=== PATIENT | female | born 1985 | race Two or more races ===

== ENCOUNTER 2016-06-05 21:39 | Inpatient (IN) | payer MEDICAID ==
[~2016-06-05] VITALS: Ht 162.6 cm; Wt 106.3 kg
[2016-06-05 23:23] LABS: Albumin 2.6 g/dL (3.4-5.0); BUN/Creatinine Ratio 14.7; Bilirubin, Total 1.7 mg/dL (0.2-1.0); Calcium 8.1 mg/dL (8.5-10.1); Potassium 3.4 mmol/L (3.5-5.1)
[2016-06-05 23:24] LABS: Basophils # (auto) 0 uL; Basophils % (auto) 0.5 % (0.0-2.0); DEFINITIVE VIEW TRANSMISSION; Eosinophils # (auto) 0 uL; Eosinophils % (auto) 0.2 % (0.0-7.0); Hematocrit 51.1 % (36.0-46.0); Hemoglobin 16.4 g/dL (12.2-16.2); Lymphocytes # (auto) 1.2 uL; Lymphocytes % (auto) 13.6 % (10.0-50.0); Mean Corpuscular Hgb Conc. 32.1 g/dL (32.0-36.0); Mean Corpuscular Volume 81.1 fL (80.0-100.0); Mean Platelet Volume 8.6 fL (7.4-10.4); Monocytes # (auto) 0.4 uL; Monocytes % (auto) 5.1 % (0.0-12.0); Neutrophils % (auto) 80.6 % (37.0-80.0); Platelet Count (auto) 371 10^3/uL (140-450); Red Cell Distribution Width 18.4 % (11.6-16.0); White Blood Cell 8.6 10^3/uL (4.4-10.8)
[2016-06-05 23:25] LABS: INR 1.06 (0.9-1.15); Partial Thromboplastin Time 26.8 sec (22.64-33.71); Prothrombin Time 11.4 sec (9.37-12.3)
[2016-06-05 23:36] LABS: Urine Bilirubin Negative (Negative); Urine Blood Negative /uL (Negative); Urine Color Yellow (Yellow); Urine Glucose Normal (Normal); Urine Hyaline Cast FEW /lpf (0 - 2); Urine Ketone Negative (Negative); Urine Mucus FEW (None Seen); Urine Nitrite Negative (Negative); Urine RBC 3 /hpf (0 - 4); Urine Squamous Epithelial Cell FEW /hpf (<5); Urine Urobilinogen Normal (Negative)
[2016-06-06] LABS: B-Type Natriuretic Peptide 555.43 pg/mL (0-100); Temperature: 22.3 C (20.0-25.0)
[2016-06-06] MEDS ORDERED: FUROSEMIDE 20 MG/2 ML VIAL IV ONE (05:45)
[2016-06-06] MEDS ORDERED: CEFTRIAXONE SODIUM 2 GM in D5W 5% 50 ML IV ONE (07:15)
[2016-06-06 07:46] LABS: Basophils # (auto) 0.1 uL; Basophils % (auto) 0.6 % (0.0-2.0); DEFINITIVE VIEW TRANSMISSION; Eosinophils # (auto) 0 uL; Eosinophils % (auto) 0.1 % (0.0-7.0); Hematocrit 48.8 % (36.0-46.0); Hemoglobin 15.7 g/dL (12.2-16.2); Lymphocytes # (auto) 1.4 uL; Lymphocytes % (auto) 15.3 % (10.0-50.0); Mean Corpuscular Hgb Conc. 32.2 g/dL (32.0-36.0); Mean Corpuscular Volume 80.8 fL (80.0-100.0); Mean Platelet Volume 8.6 fL (7.4-10.4); Monocytes # (auto) 0.6 uL; Monocytes % (auto) 6.7 % (0.0-12.0); Neutrophils # (auto) 7.1 uL; Neutrophils % (auto) 77.3 % (37.0-80.0); Platelet Count (auto) 362 10^3/uL (140-450); Red Cell Distribution Width 17.8 % (11.6-16.0); White Blood Cell 9.1 10^3/uL (4.4-10.8)
[2016-06-06] MEDS: HYDROmorphone HCL 2 MG/ML VL IV PRN ×6 (07:53→19:24)
[2016-06-06 08:19] LABS: Albumin 2.5 g/dL (3.4-5.0); BUN/Creatinine Ratio 15.3; Bilirubin, Total 1.2 mg/dL (0.2-1.0); Potassium 3.3 mmol/L (3.5-5.1); Total Protein 5.9 g/dL (6.4-8.2)
[2016-06-06 08:28] LABS: Urine Bilirubin Negative (Negative); Urine Blood Negative /uL (Negative); Urine Color Yellow (Yellow); Urine Glucose Normal (Normal); Urine Hyaline Cast MOD /lpf (0 - 2); Urine Ketone Negative (Negative); Urine Mucus FEW (None Seen); Urine Nitrite Negative (Negative); Urine RBC 1 /hpf (0 - 4); Urine Squamous Epithelial Cell FEW /hpf (<5); Urine Urobilinogen Normal (Negative); Urine pH 5.5 (5.0-8.0)
[2016-06-06 08:37] LABS: B-Type Natriuretic Peptide 462.54 pg/mL (0-100); Temperature: 22.9 C (20.0-25.0)
[2016-06-06 09:27] LABS: Albumin 2.5 g/dL (3.4-5.0); Bilirubin, Direct 0.4 mg/dL (0-0.2); Bilirubin, Total 1.2 mg/dL (0.2-1.0); Total Protein 5.8 g/dL (6.4-8.2)
[2016-06-06] MEDS ORDERED: GASTROGRAFIN 30 ML SOL ONE (11:23)
[2016-06-06] MEDS ORDERED: IOHEXOL 300 MG/ML 100ML BOTTLE IJ ONE (13:24)
[2016-06-06] MEDS ORDERED: DOCUSATE SOD 100 MG CAP PO PRN (16:00)
[2016-06-06] MEDS ORDERED: ACETAMINOPHEN 325 MG TAB PO PRN (16:00)
[2016-06-06] MEDS ORDERED: NITROGLYCERIN 0.4 MG SL TAB SL PRN (16:00)
[2016-06-06] MEDS ORDERED: TEMAZEPAM 15 MG CAP PO PRN (16:00)
[2016-06-06] MEDS ORDERED: ONDANSETRON HCL 4 MG/2 ML VIAL IV PRN (16:00)
[2016-06-06] MEDS ORDERED: MORPHINE SULF INJ 2 MG/ML SYRINGE 1ML IV PRN ×2 (16:00)
[2016-06-06] MEDS ORDERED: POTASSIUM CHL 10 Meq TABLET PO ONE (16:15)
[2016-06-06] MEDS: FUROSEMIDE 40 MG/4 ML VIAL IV SCH (18:28)
[2016-06-06] MEDS: BOOST PLUS 8 ounce PO SCH (18:28)
[2016-06-06] MEDS: SPIRONOLACTONE 25 MG TAB PO SCH (18:28)
[2016-06-06] MEDS: HYDROcodone-ACET 5/325MG TAB PO PRN (18:29)
[2016-06-06 20:05] VITALS: BP 97/62
[2016-06-06 21:13] LABS: BUN/Creatinine Ratio 16.7; Calcium 7.8 mg/dL (8.5-10.1); Potassium 4.2 mmol/L (3.5-5.1)
[2016-06-06] MEDS: SODIUM CHLOR 0.9% PF (SALINE LOCK) 10ML VIAL IV SCH (21:17)
[2016-06-06] MEDS: METOPROLOL TARTRATE 25 MG TAB PO SCH (21:17)
[2016-06-06] MEDS: LACTULOSE 20Gm/30ML SOLN PO SCH (21:17)
[2016-06-06] MEDS: FAMOTIDINE 20 MG TAB PO SCH (21:18)
[2016-06-06 22:00] VITALS: BP 97/62
[2016-06-07] MEDS: BOOST PLUS 8 ounce PO SCH ×5 (00:02→22:00)
[2016-06-07] MEDS: HYDROcodone-ACET 5/325MG TAB PO PRN (03:01)
[2016-06-07 05:00] VITALS: BP 100/61
[2016-06-07 05:41] LABS: Basophils # (auto) 0 uL; Basophils % (auto) 0.6 % (0.0-2.0); DEFINITIVE VIEW TRANSMISSION; Eosinophils # (auto) 0 uL; Eosinophils % (auto) 0.2 % (0.0-7.0); Hematocrit 50.1 % (36.0-46.0); Lymphocytes # (auto) 1.1 uL; Lymphocytes % (auto) 12.9 % (10.0-50.0); Mean Corpuscular Hgb Conc. 31.9 g/dL (32.0-36.0); Mean Corpuscular Volume 81.6 fL (80.0-100.0); Mean Platelet Volume 8.5 fL (7.4-10.4); Monocytes # (auto) 0.5 uL; Monocytes % (auto) 5.7 % (0.0-12.0); Neutrophils # (auto) 6.6 uL; Neutrophils % (auto) 80.6 % (37.0-80.0); Platelet Count (auto) 345 10^3/uL (140-450); Red Cell Distribution Width 17.7 % (11.6-16.0); White Blood Cell 8.1 10^3/uL (4.4-10.8)
[2016-06-07] MEDS: SPIRONOLACTONE 25 MG TAB PO SCH ×2 (06:00→17:10)
[2016-06-07] MEDS: FUROSEMIDE 40 MG/4 ML VIAL IV SCH ×2 (06:00→17:10)
[2016-06-07 06:07] LABS: Albumin 2.2 g/dL (3.4-5.0); BUN/Creatinine Ratio 17.3; Calcium 7.9 mg/dL (8.5-10.1)
[2016-06-07] MEDS: SODIUM CHLOR 0.9% PF (SALINE LOCK) 10ML VIAL IV SCH ×3 (06:09→22:00)
[2016-06-07 06:21] LABS: Bilirubin, Total 1.2 mg/dL (0.2-1.0); Total Protein 5.3 g/dL (6.4-8.2)
[2016-06-07 08:10] VITALS: BP 99/53
[2016-06-07 09:00] VITALS: BP_SYST 115; BP_SYST 136; BP_DIAS 72; BP_DIAS 75
[2016-06-07] MEDS: LACTULOSE 20Gm/30ML SOLN PO SCH ×2 (10:26→22:43)
[2016-06-07] MEDS: METOPROLOL TARTRATE 25 MG TAB PO SCH ×2 (10:27→22:44)
[2016-06-07] MEDS: FAMOTIDINE 20 MG TAB PO SCH ×2 (10:27→22:43)
[2016-06-07] MEDS: MULTIPLE VITAMIN TAB PO SCH (10:27)
[2016-06-07 14:10] VITALS: BP 110/70
[2016-06-07 17:00] VITALS: BP 98/76
[2016-06-07 21:16] VITALS: BP 106/80
[2016-06-08] MEDS: HYDROcodone-ACET 5/325MG TAB PO PRN ×3 (03:09→22:53)
[2016-06-08 04:55] VITALS: BP 100/70
[2016-06-08 06:00] LABS: Basophils # (auto) 0.1 uL; Basophils % (auto) 0.7 % (0.0-2.0); DEFINITIVE VIEW TRANSMISSION; Eosinophils # (auto) 0 uL; Eosinophils % (auto) 0.4 % (0.0-7.0); Hematocrit 48.4 % (36.0-46.0); Hemoglobin 15.6 g/dL (12.2-16.2); Lymphocytes # (auto) 1.2 uL; Lymphocytes % (auto) 14.5 % (10.0-50.0); Mean Corpuscular Hgb Conc. 32.2 g/dL (32.0-36.0); Mean Corpuscular Volume 80.7 fL (80.0-100.0); Mean Platelet Volume 8.4 fL (7.4-10.4); Monocytes # (auto) 0.5 uL; Monocytes % (auto) 6.8 % (0.0-12.0); Neutrophils # (auto) 6.2 uL; Neutrophils % (auto) 77.6 % (37.0-80.0); Platelet Count (auto) 326 10^3/uL (140-450)
[2016-06-08] MEDS: SPIRONOLACTONE 25 MG TAB PO SCH ×3 (06:00→17:36)
[2016-06-08 06:18] LABS: Potassium 3.6 mmol/L (3.5-5.1)
[2016-06-08] MEDS: FUROSEMIDE 40 MG/4 ML VIAL IV SCH ×2 (06:22→17:36)
[2016-06-08] MEDS: SODIUM CHLOR 0.9% PF (SALINE LOCK) 10ML VIAL IV SCH ×3 (06:22→22:00)
[2016-06-08] MEDS: BOOST PLUS 8 ounce PO SCH ×4 (06:23→22:00)
[2016-06-08 06:24] LABS: Albumin 2.1 g/dL (3.4-5.0); BUN/Creatinine Ratio 18.4; Calcium 7.8 mg/dL (8.5-10.1)
[2016-06-08 06:26] LABS: Bilirubin, Total 0.9 mg/dL (0.2-1.0); Total Protein 5.2 g/dL (6.4-8.2)
[2016-06-08 08:00] VITALS: BP 126/75
[2016-06-08 09:00] VITALS: BP 126/75
[2016-06-08] MEDS: FAMOTIDINE 20 MG TAB PO SCH ×2 (09:16→22:53)
[2016-06-08] MEDS: LACTULOSE 20Gm/30ML SOLN PO SCH ×2 (09:16→22:53)
[2016-06-08] MEDS: MULTIPLE VITAMIN TAB PO SCH (09:16)
[2016-06-08] MEDS: METOPROLOL TARTRATE 25 MG TAB PO SCH ×2 (09:17→22:54)
[2016-06-08] MEDS: HYDROmorphone HCL 2 MG/ML VL IV PRN (12:12)
[2016-06-08 13:00] VITALS: BP 121/73
[2016-06-08 17:00] VITALS: BP 112/79
[2016-06-08 22:00] VITALS: BP 124/89
[2016-06-09 05:00] VITALS: BP 100/68
[2016-06-09] MEDS: SODIUM CHLOR 0.9% PF (SALINE LOCK) 10ML VIAL IV SCH ×3 (06:00→22:24)
[2016-06-09] MEDS: BOOST PLUS 8 ounce PO SCH ×4 (06:00→22:24)
[2016-06-09] MEDS: FUROSEMIDE 40 MG/4 ML VIAL IV SCH ×2 (06:33→18:15)
[2016-06-09] MEDS: SPIRONOLACTONE 25 MG TAB PO SCH (06:34)
[2016-06-09 07:30] VITALS: BP 96/65
[2016-06-09] MEDS: METOPROLOL TARTRATE 25 MG TAB PO SCH (10:00)
[2016-06-09] MEDS ORDERED: ENOXAPARIN SOD 40 MG/0.4 ML SYRINGE SC SCH (10:00)
[2016-06-09] MEDS: LACTULOSE 20Gm/30ML SOLN PO SCH ×2 (10:01→22:23)
[2016-06-09] MEDS: MULTIPLE VITAMIN TAB PO SCH (10:03)
[2016-06-09] MEDS: FAMOTIDINE 20 MG TAB PO SCH ×2 (10:03→22:23)
[2016-06-09] MEDS: HYDROcodone-ACET 5/325MG TAB PO PRN (11:53)
[2016-06-09] MEDS: ALBUMIN 25% 100 ML IV SCH ×2 (14:25→22:24)
[2016-06-09] MEDS: SILDENAFIL CITRATE 20 MG TAB PO SCH ×2 (14:36→20:08)
[2016-06-09 16:31] VITALS: BP 106/67
[2016-06-09 19:08] LABS: Sjogren's Anti-SS-A Antibody <0.2 AI (0.0-0.9)
[2016-06-09 20:00] VITALS: BP 101/72
[2016-06-09] MEDS: HYDROmorphone HCL 2 MG/ML VL IV PRN (20:17)
[2016-06-09 22:00] VITALS: BP 101/72
[2016-06-10] VITALS (7 sets, daily range): BP systolic 111–149; BP diastolic 68–87
[2016-06-10] MEDS: HYDROmorphone HCL 2 MG/ML VL IV PRN ×4 (01:06→22:38)
[2016-06-10] MEDS: HYDROcodone-ACET 5/325MG TAB PO PRN ×3 (04:16→20:16)
[2016-06-10] MEDS: FUROSEMIDE 40 MG/4 ML VIAL IV SCH ×2 (05:44→17:48)
[2016-06-10] MEDS: ALBUMIN 25% 100 ML IV SCH ×3 (05:44→21:48)
[2016-06-10] MEDS: BOOST PLUS 8 ounce PO SCH ×4 (05:45→21:45)
[2016-06-10] MEDS: SODIUM CHLOR 0.9% PF (SALINE LOCK) 10ML VIAL IV SCH ×3 (05:45→21:44)
[2016-06-10] MEDS: SILDENAFIL CITRATE 20 MG TAB PO SCH ×3 (08:27→20:16)
[2016-06-10] MEDS: POTASSIUM CHL 20 Meq TABLET PO SCH ×2 (09:52→21:45)
[2016-06-10] MEDS: MULTIPLE VITAMIN TAB PO SCH (09:52)
[2016-06-10] MEDS: FAMOTIDINE 20 MG TAB PO SCH ×2 (09:52→21:45)
[2016-06-10] MEDS: LACTULOSE 20Gm/30ML SOLN PO SCH ×2 (09:53→21:45)
[2016-06-11] MEDS: HYDROmorphone HCL 2 MG/ML VL IV PRN ×2 (04:19→08:56)
[2016-06-11 05:00] VITALS: BP 103/79
[2016-06-11] MEDS: SODIUM CHLOR 0.9% PF (SALINE LOCK) 10ML VIAL IV SCH ×2 (05:46→14:24)
[2016-06-11] MEDS: BOOST PLUS 8 ounce PO SCH ×2 (05:46→11:38)
[2016-06-11] MEDS: ALBUMIN 25% 100 ML IV SCH (05:53)
[2016-06-11] MEDS: FUROSEMIDE 40 MG/4 ML VIAL IV SCH (05:53)
[2016-06-11 06:27] LABS: Albumin 3.5 g/dL (3.4-5.0); BUN/Creatinine Ratio 17.7; Bilirubin, Total 1.9 mg/dL (0.2-1.0); Potassium 4.2 mmol/L (3.5-5.1)
[2016-06-11 08:00] VITALS: BP 103/79
[2016-06-11] MEDS: SILDENAFIL CITRATE 20 MG TAB PO SCH ×2 (08:00→14:28)
[2016-06-11 08:26] VITALS: BP 123/88
[2016-06-11] MEDS: MULTIPLE VITAMIN TAB PO SCH (08:49)
[2016-06-11] MEDS: FAMOTIDINE 20 MG TAB PO SCH (08:49)
[2016-06-11] MEDS: POTASSIUM CHL 20 Meq TABLET PO SCH (08:49)
[2016-06-11] MEDS: LACTULOSE 20Gm/30ML SOLN PO SCH (08:49)
[2016-06-11] MEDS ORDERED: FUR20T PO (09:51)
[2016-06-11] MEDS ORDERED: SILD20TA PO (09:51)
[2016-06-11] MEDS ORDERED: POTA20TA53 PO (09:51)
[2016-06-11] MEDS ORDERED: MET25T PO (09:51)
[2016-06-11] MEDS ORDERED: WARF3TAB20 PO (09:54)
[2016-06-11] MEDS ORDERED: CARVEDILOL 3.125 MG TAB PO SCH (10:00)
[2016-06-11] MEDS ORDERED: METOPROLOL TARTRATE 25 MG TAB PO SCH (10:00)
[2016-06-11 12:00] VITALS: BP 132/95
[2016-06-11 14:50] LABS: INR 1.1 (0.9-1.15); Partial Thromboplastin Time 26.8 sec (22.64-33.71); Prothrombin Time 11.9 sec (9.37-12.3)
[2016-06-11 15:01] VITALS: BP 132/95
[2016-06-11] MEDS ORDERED: WARFARIN SODIUM 5 MG TAB PO SCH (17:00)
[2016-06-12] MEDS ORDERED: FUROSEMIDE 20 MG TAB PO SCH (10:00)
== END 2016-06-11 17:10 | disposition home or self-care (01) | DRG 194 ==
LOC: ER 21:51 → TELE 21:52 → TELE-WESTW 06-06 20:00
PROVIDERS: ADMIT Internal Medicine; ATTEND Internal Medicine
DX: I13.0 Hypertensive heart and chronic kidney disease with heart failure and stage 1 through stage 4 chronic kidney disease, or unspecified chronic kidney disease (principal); J96.00 Acute respiratory failure, unspecified whether with hypoxia or hypercapnia; E43 Unspecified severe protein-calorie malnutrition; R18.8 Other ascites; I27.2 Other secondary pulmonary hypertension; K74.60 Unspecified cirrhosis of liver; N39.0 Urinary tract infection, site not specified; I50.9 Heart failure, unspecified; E83.51 Hypocalcemia; J45.909 Unspecified asthma, uncomplicated; I07.1 Rheumatic tricuspid insufficiency; E87.6 Hypokalemia; E66.01 Morbid (severe) obesity due to excess calories; D75.1 Secondary polycythemia; N18.3 Chronic kidney disease, stage 3 (moderate); T43.625A Adverse effect of amphetamines, initial encounter; F17.210 Nicotine dependence, cigarettes, uncomplicated; F15.90 Other stimulant use, unspecified, uncomplicated; Z90.49 Acquired absence of other specified parts of digestive tract; Z86.2 Personal history of diseases of the blood and blood-forming organs and certain disorders involving the immune mechanism; Z68.41 Body mass index [BMI] 40.0-44.9, adult
CPT/HCPCS: 36415; 36600; 71020; 74176; 74177; 76700; 76705; 78582; 80048; 80053; 80076; 81001; 81025; 82140; 82150; 82805; 83516; 83690; 83880; 84702; 85025; 85379; 85610; 85730; 86225; 86235; 86703; 93005; 93306; 93970; 96365; 96375; 97001; G0434; J0696; J7060

== ENCOUNTER 2018-06-22 23:25 | Emergency (ER) | payer MEDICARE, MEDICAID ==
[~2018-06-22] VITALS: Ht 162.6 cm; Wt 83.5 kg
[~2018-06-22 23:25] MED LIST: AMBR10TA3 PO; BENA5TAB5 PO; BUME2TAB3 PO; FUR20T PO; HYDR-4683 PO; LACT10SO3 PO; MET25T PO; POTA20TA53 PO; SILD20TA PO; SPIR25TA88 PO; WARF3TAB20 PO
[2018-06-22 23:55] VITALS: BP 106/67
[2018-06-23 00:43] LABS: Basophils # (auto) 0.1 uL; Eosinophils # (auto) 0.1 uL; Hemoglobin 13.7 g/dL (12.2-16.2); Monocytes # (auto) 0.4 uL; White Blood Cell 4.7 10^3/uL (4.4-10.8)
[2018-06-23 00:45] LABS: Basophils % (auto) 1.8 % (0.0-2.0); Eosinophils % (auto) 1.2 % (0.0-7.0); Hematocrit 42.6 % (36.0-46.0); Mean Corpuscular Hemoglobin 26.7 pg (28.0-32.0); Mean Corpuscular Hgb Conc. 32.3 g/dL (32.0-36.0); Mean Corpuscular Volume 82.9 fL (80.0-100.0); Monocytes % (auto) 8.3 % (0.0-12.0); Neutrophils # (auto) 3.1 uL; Neutrophils % (auto) 66.7 % (37.0-80.0); Platelet Count (auto) 196 10^3/uL (140-450); Red Blood Cells 5.14 10^6/uL (4.0-5.20)
[2018-06-23 00:54] LABS: Red Cell Distribution Width 25.4 % (11.8-14.3)
[2018-06-23 00:56] LABS: Chloride 105 mmol/L (98-107); Sodium 139 mmol/L (136-145)
[2018-06-23 00:59] LABS: Albumin 4.2 g/dL (3.4-5.0); Anion Gap 7 (5-15); Blood Urea Nitrogen 16 mg/dL (7-18); Calcium 8.7 mg/dL (8.5-10.1); Carbon Dioxide 27 mmol/L (21-32); Glucose 66 mg/dL (74-106); Magnesium 2.3 mg/dL (1.6-2.6)
[2018-06-23 01:03] LABS: Alanine Aminotransferase 23 U/L (13-56); Aspartate Aminotransferase 17 U/L (15-37); BUN/Creatinine Ratio 13.9; Bilirubin, Total 1.5 mg/dL (0.2-1.0); GFR African American 69 mL/min; GFR Non-African American 57 mL/min; Total Protein 7.9 g/dL (6.4-8.2)
[2018-06-23 01:04] LABS: Alkaline Phosphatase 68 U/L (45-117)
== END 2018-06-23 05:55 | disposition left against medical advice (07) ==
LOC: ER 23:25
DX: R42 Dizziness and giddiness (principal); Z53.21 Procedure and treatment not carried out due to patient leaving prior to being seen by health care provider
CPT/HCPCS: 36415; 80053; 83735; 83880; 84484; 85025; 93005

== ENCOUNTER 2019-08-26 22:09 | Emergency (ER) | payer BC, MEDICAID ==
[~2019-08-26] VITALS: Ht 162.6 cm; Wt 78.5 kg
[~2019-08-26 22:09] MED LIST changes: -BENA5TAB5 PO; +BUME1TAB3 PO; -BUME2TAB3 PO; +CHOL20009 PO; -FUR20T PO; -HYDR-4683 PO; -LACT10SO3 PO; +LEVO-28 PO; -MET25T PO; -POTA20TA53 PO; -SPIR25TA88 PO; -WARF3TAB20 PO
[2019-08-26 22:34] VITALS: BP 102/65
[2019-08-26 22:51] LABS: Urine WBC None Seen /hpf (0 - 5)
[2019-08-26 23:04] LABS: Urine Bacteria NONE SEEN /hpf (None Seen); Urine Blood Negative /uL (Negative); Urine Specific Gravity 1.007 (1.001-1.035)
[2019-08-26 23:49] LABS: Basophils # (auto) 0.1 10 ^3/uL (0-0.2); Basophils % (auto) 1.4 % (0.0-2.0); Eosinophils # (auto) 0 10 ^3/uL (0-0.8); Hemoglobin 13.6 g/dL (12.2-16.2); Lymphocytes # (auto) 1.2 10 ^3/uL (0.4-5.4); Monocytes # (auto) 0.4 10 ^3/uL (0-1.3)
[2019-08-26 23:50] LABS: Eosinophils % (auto) 0.6 % (0.0-7.0); Hematocrit 42.5 % (36.0-46.0); Lymphocytes % (auto) 24.4 % (10.0-50.0); Mean Corpuscular Hemoglobin 23.6 pg (28.0-32.0); Mean Corpuscular Hgb Conc. 32.1 g/dL (32.0-36.0); Mean Corpuscular Volume 73.7 fL (80.0-100.0); Monocytes % (auto) 7.4 % (0.0-12.0); Neutrophils # (auto) 3.2 10 ^3/uL (1.6-8.6); Neutrophils % (auto) 66.2 % (37.0-80.0); Nucleated Red Blood Cells % 0.1 %; Platelet Count (auto) 235 10^3/uL (140-450); Red Blood Cells 5.77 10^6/uL (4.0-5.20); Red Cell Distribution Width 17.1 % (11.8-14.3); White Blood Cell 4.9 10^3/uL (4.4-10.8)
[2019-08-27 00:10] LABS: Albumin 2.8 g/dL (3.4-5.0); BUN/Creatinine Ratio 16.5; Calcium 7.4 mg/dL (8.5-10.1)
[2019-08-27 00:21] LABS: Total Protein 5.6 g/dL (6.4-8.2)
== END 2019-08-27 01:02 | disposition left against medical advice (07) ==
LOC: ER 22:10
DX: R22.43 Localized swelling, mass and lump, lower limb, bilateral (principal); Z53.21 Procedure and treatment not carried out due to patient leaving prior to being seen by health care provider
CPT/HCPCS: 36415; 71045; 80053; 81001; 83880; 85025; 93005

== ENCOUNTER 2019-10-24 22:59 | Inpatient (IN) | payer BC, MEDICAID ==
[~2019-10-24] VITALS: Ht 162.6 cm; Wt 87.9 kg
[2019-10-25 04:08] LABS: Albumin 2.2 g/dL (3.4-5.0); BUN/Creatinine Ratio 16.6; Bilirubin, Total 1.4 mg/dL (0.2-1.0); Calcium 7.5 mg/dL (8.5-10.1)
[2019-10-25 04:09] LABS: Potassium 2.9 mmol/L (3.5-5.1)
[2019-10-25 04:11] LABS: Basophils # (auto) 0.1 10 ^3/uL (0-0.2); Basophils % (auto) 1.2 % (0.0-2.0); Eosinophils # (auto) 0 10 ^3/uL (0-0.8); Eosinophils % (auto) 0.7 % (0.0-7.0); Hematocrit 42.5 % (36.0-46.0); Hemoglobin 13.3 g/dL (12.2-16.2); Lymphocytes # (auto) 1.3 10 ^3/uL (0.4-5.4); Lymphocytes % (auto) 23.4 % (10.0-50.0); Mean Corpuscular Hemoglobin 22.2 pg (28.0-32.0); Mean Corpuscular Hgb Conc. 31.2 g/dL (32.0-36.0); Mean Corpuscular Volume 70.9 fL (80.0-100.0); Monocytes # (auto) 0.4 10 ^3/uL (0-1.3); Monocytes % (auto) 6.7 % (0.0-12.0); Neutrophils # (auto) 3.6 10 ^3/uL (1.6-8.6); Nucleated Red Blood Cells % 0.1 %; Platelet Count (auto) 295 10^3/uL (140-450); Red Blood Cells 5.99 10^6/uL (4.0-5.20); Red Cell Distribution Width 17.6 % (11.8-14.3); White Blood Cell 5.4 10^3/uL (4.4-10.8)
[2019-10-25] MEDS ORDERED: POTASSIUM EFFERVESENT TAB 25 MEQ PO ONE (05:45)
[2019-10-25] MEDS ORDERED: POTASSIUM CHL 20MEQ/100ML 100 ML IV ONE (05:45)
[2019-10-25] MEDS ORDERED: SODIUM CHLORIDE 0.9% 1,000 ML IV ONE (07:06)
[2019-10-25] MEDS ORDERED: ONDANSETRON HCL 4 MG/2 ML VIAL IV ONE (07:15)
[2019-10-25 08:19] LABS: INR 0.92 (0.9-1.15); Partial Thromboplastin Time 25.8 sec (23.0-31.2)
[2019-10-25 11:14] LABS: Urine Bacteria NONE SEEN /hpf (None Seen); Urine Blood 3+ /uL (Negative); Urine Mucus FEW (None Seen); Urine Specific Gravity 1.017 (1.001-1.035); Urine WBC 27 /hpf (0 - 5)
[2019-10-25] MEDS ORDERED: FUROSEMIDE 40 MG/4 ML VIAL IV ONE (11:15)
[2019-10-25] MEDS ORDERED: SPIRONOLACTONE 25 MG TAB PO ONE (11:15)
[2019-10-25] MEDS ORDERED: MORPHINE SULF INJ 2 MG/ML SYRINGE 1ML IV PRN (12:45)
[2019-10-25] MEDS ORDERED: NITROGLYCERIN 0.4 MG SL TAB SL PRN (12:45)
[2019-10-25] MEDS ORDERED: IPRATROPIUM BROM 0.5 MG/2.5ML INH SOL NEB PRN (12:45)
[2019-10-25] MEDS ORDERED: FUROSEMIDE 20 MG/2 ML VIAL IV ONE (12:45)
[2019-10-25] MEDS ORDERED: ALBUTEROL SULF 2.5 MG/0.5ML(0.5%) NEB SOLN NEB PRN (12:45)
[2019-10-25] MEDS: POTASSIUM CHL 20MEQ/100ML 100 ML IV SCH ×2 (13:47→18:13)
[2019-10-25] MEDS ORDERED: SILDENAFIL CITRATE 20 MG TAB PO SCH (14:00)
[2019-10-25 14:07] VITALS: BP 99/58
[2019-10-25] MEDS: ALBUMIN 25% 50 ML IV SCH ×2 (16:29→22:36)
[2019-10-25] MEDS: metOLazone 5 MG TAB PO SCH (16:32)
[2019-10-25] MEDS: POTASSIUM CHL 20 Meq TABLET PO SCH (16:33)
--- NOTE | 2019-10-25 17:00 | NUR ---
CAME ON WC FROM ER, RECEIVED PATIENT ALERT AND ORIENTED X4, NOT IN DISTRESS, CLEAR LS IN BILATERAL LUNG LOBES, RR=18 SAT=96% IN RA, DEEP BREATHING AND COUGHING ENCOURAGED, DEMONSTRATED AND VERBALIZED UNDERSTANDING, SR R=84 ON TELE MONITORING, ABDOMEN SOFT AND ROUND WITH ACTIVE BS, LAST BM=10/22/19 REPORTED, SKIN INTACT WARM TO TOUCH, NONE PITTING EDEMA ON BILATERAL LOWER EXTREMITIES NOTED, RESTING ON BED, DENIED PAIN, VS T=97.4 RR=20 SAT=96% P=84 GF=747/62, HEAD OF BED ELEVATED, BED ON LOW POSITION, BED RAILS UP X2, POTASSIUM L=2.9, POTASSIUM IV INFUSING ORDERED, CALL LIGHT ON REACH, PENDING STRESS TEST, WILL CONTINUE MONITORING.
[2019-10-25 17:35] VITALS: BP 104/62
[2019-10-25] MEDS: MORPHINE SULFATE 4 MG/ML SYR/VIAL IV PRN ×2 (17:49→23:14)
--- NOTE | 2019-10-25 18:52 | NUR ---
SITTING ON BED, TOLERATED 1005 OF DINNER OF PROVIDED TRAY, RESTING AND TALKING ON THE PHONE, WILL CONTINUE MONITORING.
--- NOTE | 2019-10-25 18:56 | NUR ---
Respiratory note: PT RECIEVED ON RA. PT IS AWAKE AND ALERT AT THIS TIME. NO RESP DISTRESS NOTED. PRN TX NOT INDICATED. SPO2 96%, HR 84, RR 16, BS CLEAR T/O. PT AWARE TO CALL FOR PRN TX'S IF SOB/WHEEZING.
--- NOTE | 2019-10-25 19:36 | NUR ---
NOT IN DISTRESS, RESTING ON BED, HEAD OF BED ELEVATED, BED ON LOW POSITION, RAILS UP X2, CALL LIGHT ON REACH, REPORT WAS GIVEN TO THE ELASTIC ASSEMBLER RN.
--- NOTE | 2019-10-25 20:00 | NUR ---
Opening Shift Note Assumed care of patient. Awake, alert and oriented x4. No S/S of distress/SOB or pain. Pt is sitting up in bed, on 3L NC, with even and unlabored respirations. Instructed on POC and to call for assist PRN. Bed locked, in lowest position, call light within reach, side rails up x2. Will continue to monitor for changes Q1hr and PRN.
--- NOTE | 2019-10-25 21:30 | NUR ---
Dr. Brar at bedside Discussed POC. New orders received. Will continue with care.
[2019-10-25 22:00] VITALS: BP 88/59
[2019-10-25] MEDS ORDERED: FUROSEMIDE 40 MG/4 ML VIAL IV SCH (22:00)
[2019-10-26 05:00] VITALS: BP 91/54
[2019-10-26] MEDS: ALBUMIN 25% 50 ML IV SCH ×3 (05:39→21:30)
[2019-10-26] MEDS: MORPHINE SULFATE 4 MG/ML SYR/VIAL IV PRN ×2 (05:50→20:37)
[2019-10-26 06:25] LABS: Mean Corpuscular Volume 71.5 fL (80.0-100.0); Monocytes # (auto) 0.4 10 ^3/uL (0-1.3); Neutrophils # (auto) 2.1 10 ^3/uL (1.6-8.6); Nucleated Red Blood Cells % 0.2 %; White Blood Cell 3.8 10^3/uL (4.4-10.8)
[2019-10-26 06:26] LABS: Basophils # (auto) 0.1 10 ^3/uL (0-0.2); Basophils % (auto) 2.1 % (0.0-2.0); Eosinophils # (auto) 0.1 10 ^3/uL (0-0.8); Eosinophils % (auto) 1.6 % (0.0-7.0); Hematocrit 39.1 % (36.0-46.0); Hemoglobin 12.3 g/dL (12.2-16.2); Lymphocytes # (auto) 1.2 10 ^3/uL (0.4-5.4); Lymphocytes % (auto) 31.4 % (10.0-50.0); Mean Corpuscular Hemoglobin 22.4 pg (28.0-32.0); Mean Corpuscular Hgb Conc. 31.4 g/dL (32.0-36.0); Monocytes % (auto) 10.6 % (0.0-12.0); Neutrophils % (auto) 54.3 % (37.0-80.0); Platelet Count (auto) 262 10^3/uL (140-450); Red Blood Cells 5.47 10^6/uL (4.0-5.20); Red Cell Distribution Width 17.8 % (11.8-14.3)
[2019-10-26 06:35] LABS: Albumin 2.4 g/dL (3.4-5.0); Calcium 7.6 mg/dL (8.5-10.1); Potassium 3.2 mmol/L (3.5-5.1)
[2019-10-26 06:39] LABS: BUN/Creatinine Ratio 21.4; Bilirubin, Total 1.7 mg/dL (0.2-1.0); Total Protein 4.6 g/dL (6.4-8.2)
[2019-10-26 08:00] VITALS: BP 97/65
[2019-10-26 09:00] VITALS: BP 97/65
[2019-10-26 09:15] LABS: Hepatitis B Surface Antigen Negative (Negative)
--- NOTE | 2019-10-26 09:15 | NUR ---
Respiratory note: PT FOUND ROOM.. PT IS AWAKE AND ALERT AT THIS TIME. NO RESP DISTRESS NOTED. PRN TX NOT INDICATED. SPO2 100%, HR 89, RR 18, BS DIMINISHED T/O. PT AWARE TO CALL IF SOB
[2019-10-26] MEDS: AMBRISENTAN 10 MG PO SCH (10:00)
[2019-10-26] MEDS: metOLazone 5 MG TAB PO SCH (10:00)
[2019-10-26] MEDS: CHOLECALCIFEROL (VITD3) 2,000 UNIT CAP PO SCH (10:00)
[2019-10-26] MEDS: POTASSIUM CHL 20 Meq TABLET PO SCH (10:08)
[2019-10-26 13:00] VITALS: BP 91/61
[2019-10-26 14:42] LABS: Hepatitis C Antibody Negative (Negative)
[2019-10-26 14:44] LABS: Hepatitis A Ab IgM Negative
[2019-10-26 14:47] LABS: Hepatitis B Core IgM Negative
[2019-10-26] MEDS: POTASSIUM CHL 20MEQ/100ML 100 ML IV SCH ×2 (17:00→21:20)
[2019-10-26] MEDS: FUROSEMIDE 40 MG/4 ML VIAL IV SCH (17:00)
[2019-10-26 17:01] VITALS: BP 89/64
--- NOTE | 2019-10-26 20:00 | NUR ---
Opening Shift Note Assumed care of patient. Awake, alert and oriented x4. No S/S of distress/SOB or pain. Pt is laying down in bed with even and unlabored respirations. Instructed on POC and to call for assist PRN. Bed locked, in lowest position, call light within reach, side rails up x2. Will continue to monitor for changes Q1hr and PRN.
[2019-10-26 22:00] VITALS: BP 110/63
[2019-10-27] MEDS: MORPHINE SULFATE 4 MG/ML SYR/VIAL IV PRN (01:48)
[2019-10-27 05:00] VITALS: BP 95/66
[2019-10-27] MEDS: ALBUMIN 25% 50 ML IV SCH (05:35)
[2019-10-27] MEDS: FUROSEMIDE 40 MG/4 ML VIAL IV SCH ×2 (05:35→18:00)
[2019-10-27 06:07] LABS: Potassium 2.9 mmol/L (3.5-5.1)
--- NOTE | 2019-10-27 06:08 | NUR ---
Critical Lab value Potassium 2.9. Hospitalist paged.
[2019-10-27 06:11] LABS: Albumin 2.9 g/dL (3.4-5.0); BUN/Creatinine Ratio 27.5; Bilirubin, Total 1.9 mg/dL (0.2-1.0); Calcium 7.9 mg/dL (8.5-10.1); Total Protein 4.8 g/dL (6.4-8.2)
--- NOTE | 2019-10-27 06:35 | NUR ---
Call back from hospitalist New orders received
[2019-10-27] MEDS: POTASSIUM CHL 20MEQ/100ML 100 ML IV SCH ×4 (07:50→17:02)
[2019-10-27 08:36] LABS: Amphetamine Screen, Urine NEGATIVE (NEGATIVE); Barbiturate Scree,Urine NEGATIVE (NEGATIVE); Benzodiazephine Screen, Urine NEGATIVE (NEGATIVE); Cannabinoid Screen, Urine NEGATIVE (NEGATIVE); Cocaine Screen, Urine NEGATIVE (NEGATIVE); Opiate Scree,Urine NEGATIVE (NEGATIVE); Phencyclidine Screen, Urine NEGATIVE (NEGATIVE)
[2019-10-27 08:40] LABS: Alcohol, Urine < 3.0 mg/dL (0-10)
--- NOTE | 2019-10-27 08:40 | NUR ---
Opening Shift Note Assumed care of patient, awake and alert. No S/S of distress/SOB. Pt. stated that she was in pain 10/08; however, this RN could not give Morphine due to the pt.'s low blood pressure 91/67. Pt. has NS running at 100 ml/hr. Instructed on POC and to call for assist PRN, will continue to monitor pain and for changes Q1hr and PRN.
[2019-10-27 09:00] VITALS: BP 102/65
[2019-10-27] MEDS: metOLazone 5 MG TAB PO SCH (09:43)
[2019-10-27] MEDS: CHOLECALCIFEROL (VITD3) 2,000 UNIT CAP PO SCH (09:45)
[2019-10-27] MEDS: AMBRISENTAN 10 MG PO SCH (09:45)
[2019-10-27] MEDS ORDERED: POTASSIUM CHL 20 Meq TABLET PO SCH (10:00)
--- NOTE | 2019-10-27 10:24 | NUR ---
Respiratory note: PT FOUND ROOM.. PT IS AWAKE AND ALERT AT THIS TIME. NO RESP DISTRESS NOTED. PRN TX NOT INDICATED. SPO2 95%ON ROOM AIR, HR 87, RR 18, BS DIMINISHED T/O. PT AWARE TO CALL IF SOB
[2019-10-27] MEDS ORDERED: POTASSIUM CHL 20 Meq TABLET PO ONE (12:15)
--- NOTE | 2019-10-27 12:17 | NUR ---
Dr. Brar at bedside MD discussing plan of care with patient and this RN. Patient to discharge later today after potassium infusion and lab redraw. Patient verbalized understanding. Will continue to monitor Q1 hour and PRN.
--- NOTE | 2019-10-27 12:20 | NUR ---
Nutrition Assessment Notes please see attached link for complete assessment Est energy needs IBW 54 [id number] kcal (25-30 kcal/kg IBW), Est protein needs: 54-64 g (1-1.2g/kg IBW) Will reassess per dry body wt Addendum: 10/27/19 at [address] Amended: Links added.
--- NOTE | 2019-10-27 12:25 | NUR ---
Clearance for discharge This RN received discharge clearance from Dr. Palencia for cardiology and from GI. Will proceed with discharge as ordered.
[2019-10-27] MEDS ORDERED: SPIR25TA8 PO ×2 (12:53→12:57)
[2019-10-27] MEDS ORDERED: BUME1TAB3 PO ×2 (12:53→12:59)
[2019-10-27] MEDS ORDERED: CHOL20009 PO (12:57)
[2019-10-27] MEDS ORDERED: POTA-220 PO (12:57)
[2019-10-27 13:00] VITALS: BP 86/60
--- NOTE | 2019-10-27 17:30 | NUR ---
Patient still infusing potassium Patient refused to allow this RN to run Potassium at the normal rate. Patient states it "watt too much. I'd rather it take all night than hurt." Patient aware that she is to discharge once potassium is complete and lab is redraw. Will continue to monitor Q1 hour and PRN.
--- NOTE | 2019-10-27 19:27 | NUR ---
Closing Note Report given to machinist 2nd shift RN. No signs or symptoms of distress noted at this time.
--- NOTE | 2019-10-27 20:30 | NUR ---
MD Brar paged Pts potassium came back at 3.7. Notified MD as requested. Will discharge pt as ordered
--- NOTE | 2019-10-27 20:55 | NUR ---
Pt discharged IV removed, fully intact, pressure gauze applied. Tele box removed. No S/S of SOB, distress or pain noted. Pt given all discharge paperwork and signed for her belongings.
== END 2019-10-27 20:52 | disposition home or self-care (01) | DRG 291 ==
LOC: ER 22:59 → TELE 23:00 → TELE-CENTR 10-25 15:36
PROVIDERS: ADMIT Internal Medicine; ATTEND Internal Medicine
DX: I13.0 Hypertensive heart and chronic kidney disease with heart failure and stage 1 through stage 4 chronic kidney disease, or unspecified chronic kidney disease (principal); E43 Unspecified severe protein-calorie malnutrition; I50.33 Acute on chronic diastolic (congestive) heart failure; N17.9 Acute kidney failure, unspecified; R60.1 Generalized edema; E03.9 Hypothyroidism, unspecified; N18.3 Chronic kidney disease, stage 3 (moderate); E87.6 Hypokalemia; Z68.33 Body mass index [BMI] 33.0-33.9, adult; D50.9 Iron deficiency anemia, unspecified; I27.29 Other secondary pulmonary hypertension; J45.909 Unspecified asthma, uncomplicated; Z91.11 Patient's noncompliance with dietary regimen; Z91.19 Patient's noncompliance with other medical treatment and regimen; I95.9 Hypotension, unspecified; I50.810 Right heart failure, unspecified; I42.7 Cardiomyopathy due to drug and external agent; T43.625A Adverse effect of amphetamines, initial encounter; K76.9 Liver disease, unspecified
CPT/HCPCS: 36415; 71046; 76700; 80053; 80074; 80307; 81001; 83735; 83880; 84132; 84436; 84443; 84480; 84484; 85025; 85610; 85730; 93005; 93306; 93970; G0378; J2405; J3480; P9047

== ENCOUNTER 2019-12-21 10:20 | Observation (INO) | payer BC, MEDICAID ==
[~2019-12-21] VITALS: Ht 162.6 cm; Wt 81.9 kg
[~2019-12-21 10:20] MED LIST changes: -AMBR10TA3 PO; -LEVO-28 PO; +POTA-220 PO; -SILD20TA PO; +SPIR25TA8 PO
[2019-12-21 11:24] LABS: Eosinophils # (auto) 0.1 10 ^3/uL (0-0.8); Hemoglobin 12.9 g/dL (12.2-16.2); Mean Corpuscular Volume 70.6 fL (80.0-100.0); Monocytes # (auto) 0.4 10 ^3/uL (0-1.3); Neutrophils # (auto) 4.1 10 ^3/uL (1.6-8.6); Nucleated Red Blood Cells % 0.1 %; White Blood Cell 5.7 10^3/uL (4.4-10.8)
[2019-12-21 11:26] LABS: Basophils # (auto) 0.1 10 ^3/uL (0-0.2); Basophils % (auto) 1.3 % (0.0-2.0); Eosinophils % (auto) 1.1 % (0.0-7.0); Hematocrit 41.8 % (36.0-46.0); Lymphocytes % (auto) 18.3 % (10.0-50.0); Mean Corpuscular Hemoglobin 21.8 pg (28.0-32.0); Mean Corpuscular Hgb Conc. 30.9 g/dL (32.0-36.0); Monocytes % (auto) 6.6 % (0.0-12.0); Neutrophils % (auto) 72.7 % (37.0-80.0); Platelet Count (auto) 298 10^3/uL (140-450); Red Blood Cells 5.92 10^6/uL (4.0-5.20); Red Cell Distribution Width 19.4 % (11.8-14.3)
[2019-12-21 11:36] LABS: Albumin 2.4 g/dL (3.4-5.0); Anion Gap 5 (5-15); Blood Urea Nitrogen 21 mg/dL (7-18); Calcium 7.8 mg/dL (8.5-10.1); Carbon Dioxide 27 mmol/L (21-32); Chloride 108 mmol/L (98-107); Glucose 87 mg/dL (74-106); Potassium 3.5 mmol/L (3.5-5.1); Sodium 140 mmol/L (136-145)
[2019-12-21 11:41] LABS: Alanine Aminotransferase 15 U/L (13-56); Alkaline Phosphatase 60 U/L (45-117); Aspartate Aminotransferase 22 U/L (15-37); BUN/Creatinine Ratio 15.9; Bilirubin, Total 1.4 mg/dL (0.2-1.0); CRP High Sensitivity 0.07 mg/dL (< 0.3); GFR African American 59 mL/min; GFR Non-African American 48 mL/min
[2019-12-21 11:45] LABS: Urine Bacteria NONE SEEN /hpf (None Seen); Urine Blood Negative /uL (Negative); Urine Specific Gravity 1.006 (1.001-1.035); Urine WBC 1 /hpf (0 - 5)
[2019-12-21] MEDS ORDERED: NITROGLYCERIN 0.4 MG SL TAB SL PRN (13:30)
[2019-12-21] MEDS ORDERED: ACETAMINOPHEN 325 MG TAB PO PRN (13:30)
[2019-12-21] MEDS ORDERED: MORPHINE SULF INJ 2 MG/ML SYRINGE 1ML IV PRN (13:30)
[2019-12-21] MEDS: levoFLOXacin 500MG 100 ML IV SCH (13:55)
[2019-12-21] MEDS ORDERED: ALBUTEROL SULF HFA 90MCG INH 200DOSE IN SCH (14:00)
--- NOTE | 2019-12-21 20:01 | NUR ---
Telemetry admit from ER TIFFANY RUFFIN admitted to Telemetry unit after SBAR received. Patient oriented to Xena Aviles, primary RN, unit, room, bed, and unit policies regarding patient care and visiting hours. Patient now on continuous telemetry monitoring, tele box # 83 and telemetry reading on arrival to unit is SR. Patient placed on bedside oxygen, weighed by bedscale and encouraged to call if they need something. All questions and concerns addressed, patient verbalized understanding.
[2019-12-21] MEDS: SILDENAFIL CITRATE 20 MG TAB PO SCH (20:34)
--- NOTE | 2019-12-21 20:34 | NUR ---
Scheduled medication administered Scheduled 20:00 medication Revatio administered at this time. Current BP 106/59 and HR 82. Patient stated that this blood pressure is high for her, normally she runs around 80 systolic, per patient, her PCP is aware of low pressure. Will continue to monitor.
[2019-12-21] MEDS ORDERED: HYDROcodone-ACET 5/325MG TAB PO PRN (21:00)
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
[2019-12-21 22:00] VITALS: BP 106/59
[2019-12-21] MEDS: HYDROcodone-ACET 5/325MG TAB PO PRN (22:11)
[2019-12-22] MEDS ORDERED: AMBR10TA4 PO (00:21)
[2019-12-22] MEDS ORDERED: SILD20TA PO (00:21)
[2019-12-22] MEDS ORDERED: INFLUENZA QUAD 2020-2021 0.5 ML SYRG IM ONE (01:00)
[2019-12-22] MEDS ORDERED: BUMETANIDE 2.5mg/10ml (0.25 mg/ml) INJ IV ONE (02:15)
[2019-12-22] MEDS: HYDROcodone-ACET 5/325MG TAB PO PRN ×3 (04:56→20:25)
[2019-12-22 05:00] VITALS: BP 95/56
--- NOTE | 2019-12-22 05:00 | NUR ---
Patient c/o headache, PRN [place] 5 given at this time for pain 6/10. Supplied patient with ice pack for headache. Will reassess and continue to monitor.
[2019-12-22 08:24] LABS: Basophils # (auto) 0 10 ^3/uL (0-0.2); Eosinophils # (auto) 0.1 10 ^3/uL (0-0.8); Eosinophils % (auto) 2.2 % (0.0-7.0); Hemoglobin 11.8 g/dL (12.2-16.2); Mean Corpuscular Hemoglobin 21.5 pg (28.0-32.0); Monocytes # (auto) 0.4 10 ^3/uL (0-1.3); Neutrophils # (auto) 2.7 10 ^3/uL (1.6-8.6); White Blood Cell 4.2 10^3/uL (4.4-10.8)
[2019-12-22 08:25] LABS: Basophils % (auto) 0.6 % (0.0-2.0); Hematocrit 38.9 % (36.0-46.0); Lymphocytes % (auto) 23.4 % (10.0-50.0); Mean Corpuscular Hgb Conc. 30.4 g/dL (32.0-36.0); Mean Corpuscular Volume 70.6 fL (80.0-100.0); Monocytes % (auto) 8.8 % (0.0-12.0); Nucleated Red Blood Cells % 0.1 %; Platelet Count (auto) 239 10^3/uL (140-450); Red Blood Cells 5.51 10^6/uL (4.0-5.20)
[2019-12-22 08:42] LABS: Calcium 7.7 mg/dL (8.5-10.1); Potassium 3.2 mmol/L (3.5-5.1)
[2019-12-22 08:45] LABS: BUN/Creatinine Ratio 18.2; CRP High Sensitivity 0.05 mg/dL (< 0.3)
[2019-12-22 09:00] VITALS: BP 100/56
[2019-12-22] MEDS: SILDENAFIL CITRATE 20 MG TAB PO SCH ×3 (09:33→20:00)
[2019-12-22] MEDS ORDERED: SPIRONOLACTONE 25 MG TAB PO SCH (10:00)
[2019-12-22] MEDS ORDERED: AMBRISENTAN 10 MG TAB PO SCH (10:00)
[2019-12-22] MEDS ORDERED: POTASSIUM CHL 20 Meq TABLET PO SCH (10:00)
[2019-12-22] MEDS ORDERED: BUMETANIDE 1 MG TAB PO SCH ×2 (10:00)
[2019-12-22] MEDS: levoFLOXacin 500MG 100 ML IV SCH (10:00)
--- NOTE | 2019-12-22 10:00 | NUR ---
CALLED PHARMACY FOR AMBRISENTAN. WILL SEND UP MEDICATION.
--- NOTE | 2019-12-22 11:43 | NUR ---
Assessment Patient is a 34-year-old who is alert and oriented. Prior to admission patient lived home with family and functioned independently. Per patient she can care for her own ADLs. Per patient she has home oxygen for home use. Per patient she will return home to her prior living arrangements post discharge and family will transport. Advised patient there is a social service consult for home health safety evaluation. Informed patient clinical information will be faxed to [facility]. Informed patient she has the right to participate in all discharge planning. Patient verbalized understanding and agreed to discharge plan. Per Concetta with [facility] patient has been accepted and service to start within 24-48hrs upon d/c day. Faxed medical equipment to [facility] group requesting authorization for [facility]. Addendum: 12/22/19 at 1148 by KVNG HAYES Amended: Links added.
[2019-12-22 13:00] VITALS: BP 90/53
--- NOTE | 2019-12-22 13:00 | NUR ---
CALLED PHARMACY AGAIN FOR AMBRISENTAN. PER CLOTH TESTERTORITO, MED HAS BEEN SENT UP AND SHOULD BE IN THE CASETTE. INFORMED TECH THAT MED IS NOWHERE TO BE FOUND. PER TORITO SHE WILL COME UP.
[2019-12-22] MEDS ORDERED: POTASSIUM EFFERVESENT TAB 25 MEQ PO ONE (13:30)
--- NOTE | 2019-12-22 13:44 | NUR ---
D/C Planning Per social service consult for home oxygen at 2 l/min. Faxed clinical information to [facility] medical group and SG requesting for oxygen to be deliver to bedside .
--- NOTE | 2019-12-22 14:25 | NUR ---
Nutrition Assessment Notes Please refer to link for full assessment notes. Est Energy needs: [id number] kcals (17-20 kcal/kgBW) Est Protein needs: 66-82 gms/day (0.8-1.0 gm/kgBW) Will continue to monitor and reassess prn. Addendum: 12/22/19 at [address] Amended: Links added.
--- NOTE | 2019-12-22 15:20 | NUR ---
PAGED DR Koko SNYDER RE: PT'S C/O NAUSEA AND NO NAUSEA MEDS ORDERED ON FILE. MESSAGE LEFT ON HIS ANSWERING SERVICE. WAITING FOR CALL BACK.
--- NOTE | 2019-12-22 16:25 | NUR ---
ss consult Per consult requesting information on advanced directive. Patient has been provided with advanced directive. Addendum: 12/22/19 at 1625 by Xochilt Roe Amended: Links added.
[2019-12-22] MEDS ORDERED: ONDANSETRON HCL 4 MG/2 ML VIAL IV ONE (16:30)
--- NOTE | 2019-12-22 16:45 | NUR ---
SPOKE TO DR SNYDER. INFORMED MD OF PT'S NAUSEA AND ALSO OF DECREASED BP. ORDER OF ZOFRAN AND 250ML NS BOLUS RECEIVED. WE'RE STILL WAITING FOR DR SINGH FOR DISCHARGE CLEARANCE AND ALSO FOR HOME O2 TO BE DELIVERED AT BEDSIDE.
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
[2019-12-22 17:00] VITALS: BP 85/57
[2019-12-22] MEDS ORDERED: SODIUM CHLORIDE 0.9% 250 ML IV ONE (17:00)
--- NOTE | 2019-12-22 17:03 | NUR ---
CHOICE authorization number for is [id number] spoke with Vickie at and provided her with this authorization number. CHOICE authorization number for [facility] is [id number].
--- NOTE | 2019-12-22 17:04 | NUR ---
PER PT, SHE HAD JUST SPOKEN TO THE COMPANY THAT WILL DELIVER THE O2 AT BEDSIDE AND HOME AND THEY WILL BE HERE SOON.
[2019-12-22 17:08] VITALS: BP 100/54
[2019-12-22 17:15] VITALS: BP 100/54
--- NOTE | 2019-12-22 18:48 | NUR ---
PAGED BUTTON RIVETER TO FOLLOW-UP ON PT'S O2 THAT WAS SUPPOSED TO BE DELIVERED AT BEDSIDE. WAITING FOR CALL BACK.
--- NOTE | 2019-12-22 19:03 | NUR ---
NO CALL BACK RECEIVED FROM SOCIAL SERVICE DBA MANAGER
--- NOTE | 2019-12-22 19:10 | NUR ---
SPOKE TO MARSHAL, SOIL AND PLANT SCIENTIST. SHE WILL CONTACT THE COMPANY RE: O2 DELIVERY AT BEDSIDE AND WILL CALL ME BACK.
--- NOTE | 2019-12-22 19:30 | NUR ---
Discharge instructions given as ordered. Encourage to follow up with PMD as instructed. All questions and concerns addressed. Patient verbalized understanding. Medication reconciliation form completed and copy given to patient. Home medications held in Pharmacy returned to patient, and needed vaccines given. PT AWAITING FOR O2 DELIVERY AT BEDSIDE. ENDORSED TO LITTLE SCHUMACHER.
--- NOTE | 2019-12-22 19:40 | NUR ---
Opening Shift Note Assumed care of patient, awake and alert. No S/S of distress/SOB or pain. Instructed on POC and to call for assist PRN. Patient aware of pending O2 delivery in a few hours and pending discharge once O2 is delivered. Bed in lowest locked position, call light within reach, side rails up x2. Will continue to monitor for changes Q1hr and PRN.
--- NOTE | 2019-12-22 19:41 | NUR ---
PER MARSHAL, O2 WILL BE DELIVERED AT BEDSIDE IN A FEW HOURS. PT IS AWARE.
--- NOTE | 2019-12-22 21:30 | NUR ---
Discharge instructions given as ordered. Encourage to follow up with PMD as instructed. All questions and concerns addressed. Patient verbalized understanding. Telemetry unit returned to ICU. Patient taken to vehicle via wheelchair with all personal belongings and O2, accompanied by staff. No distress noted at time of departure.
[2020-01-10] MEDS ORDERED: AMBR10TA3 PO (14:13)
== END 2019-12-22 21:30 | disposition home or self-care (01) ==
LOC: ER 10:20 → TELE 10:21 → TELE-WESTW 20:01
PROVIDERS: ADMIT Internal Medicine; ATTEND Hospitalist
DX: I11.0 Hypertensive heart disease with heart failure (principal); Z20.828 Contact with and (suspected) exposure to other viral communicable diseases; I50.43 Acute on chronic combined systolic (congestive) and diastolic (congestive) heart failure; I50.82 Biventricular heart failure; I42.9 Cardiomyopathy, unspecified; J20.9 Acute bronchitis, unspecified; I27.29 Other secondary pulmonary hypertension; D84.9 Immunodeficiency, unspecified; Z23 Encounter for immunization
CPT/HCPCS: 36415; 71045; 80048; 80053; 81001; 81025; 82728; 83605; 83880; 84484; 85025; 85379; 86141; 87040; 87426; 90471; 90686; 93005; 93306; 96365; 96366; 96375; 99284; G0378; J1956; J2405; J7030; U0003

== ENCOUNTER 2020-01-15 06:42 | Day surgery (SDC) | payer BC, MEDICAID ==
[~2020-01-15] VITALS: Ht 162.6 cm; Wt 74.8 kg
[~2020-01-15 06:42] MED LIST changes: +AMBR10TA3 PO; -POTA-220 PO; +SILD20TA PO
[2020-01-15] MEDS ORDERED: LIDOCAINE 2%HCL (LOCAL ANESTH.) INJ 20ML MDV ONE (07:23)
[2020-01-15] MEDS ORDERED: IODIXANOL 320MG/ML 100ML BTL IV ONE (07:23)
[2020-01-15] MEDS ORDERED: HEPARIN SODIUM (PORCINE) 5000 UNITS/ML 1ML VIAL ONE (07:58)
[2020-01-15] MEDS ORDERED: VERAPAMIL 2.5MG/ML INJ 2ML VIAL IV ONE (07:58)
[2020-01-15] MEDS ORDERED: SODIUM CHL 0.9% 0 ML ONE (07:59)
[2020-01-15] MEDS ORDERED: MIDAZOLAM HCL 1MG/1ML-2 ML VIAL ONE ×2 (07:59→09:12)
[2020-01-15] MEDS ORDERED: fentaNYL CITRATE 100 MCG/2 ML VL ONE (07:59)
[2020-01-15] MEDS ORDERED: ANGIOMAX 250 MG VIAL IV ONE (07:59)
[2020-01-15] MEDS ORDERED: diphenhdrAMINE HCL 50 MG/1 ML VL ONE (08:20)
[2020-01-15] MEDS ORDERED: HYDROcodone-ACET 5/325MG TAB PO PRN (09:45)
[2020-01-15] MEDS ORDERED: ACETAMINOPHEN 500 MG TAB PO PRN (09:45)
[2020-01-15] MEDS ORDERED: ONDANSETRON HCL 4 MG/2 ML VIAL IV PRN (09:45)
== END 2020-01-15 13:54 | disposition home or self-care (01) ==
LOC: CATH 06:42
PROVIDERS: ATTEND Internal Medicine
DX: I25.10 Atherosclerotic heart disease of native coronary artery without angina pectoris (principal); I11.0 Hypertensive heart disease with heart failure; F32.9 Major depressive disorder, single episode, unspecified; F41.9 Anxiety disorder, unspecified; I27.20 Pulmonary hypertension, unspecified; Z98.890 Other specified postprocedural states; Z20.828 Contact with and (suspected) exposure to other viral communicable diseases; Z79.899 Other long term (current) drug therapy; Z87.891 Personal history of nicotine dependence; Z98.51 Tubal ligation status; Z68.28 Body mass index [BMI] 28.0-28.9, adult
CPT/HCPCS: 93005; 93456; C1751; C1894; J1200; J1644; J2250; J3010; Q9967; U0003; 99152; 99153

== ENCOUNTER 2020-04-04 23:26 | Emergency (ER) | payer BC, MEDICAID ==
[~2020-04-04] VITALS: Ht 162.6 cm; Wt 72.6 kg
[2020-04-05] MEDS ORDERED: FUROSEMIDE 100 MG/10ML VIAL IV ONE (00:15)
[2020-04-05 01:41] LABS: Basophils # (auto) 0.1 10 ^3/uL (0-0.2); Eosinophils # (auto) 0.1 10 ^3/uL (0-0.8); Hematocrit 37.7 % (36.0-46.0); Hemoglobin 11.7 g/dL (12.2-16.2); Mean Corpuscular Hemoglobin 21.7 pg (28.0-32.0); Monocytes # (auto) 0.3 10 ^3/uL (0-1.3); Monocytes % (auto) 7.1 % (0.0-12.0); Nucleated Red Blood Cells % 0.2 %; Red Blood Cells 5.38 10^6/uL (4.0-5.20)
[2020-04-05 01:43] LABS: Basophils % (auto) 1.8 % (0.0-2.0); Eosinophils % (auto) 1.8 % (0.0-7.0); Lymphocytes % (auto) 21.4 % (10.0-50.0); Neutrophils # (auto) 3.2 10 ^3/uL (1.6-8.6); Neutrophils % (auto) 67.9 % (37.0-80.0); Platelet Count (auto) 251 10^3/uL (140-450); White Blood Cell 4.7 10^3/uL (4.4-10.8)
[2020-04-05 01:46] LABS: Urine Bacteria FEW /hpf (None Seen); Urine Blood Negative /uL (Negative); Urine Specific Gravity 1.007 (1.001-1.035); Urine WBC 1 /hpf (0 - 5)
[2020-04-05 01:55] LABS: INR 0.95 (0.9-1.15); Partial Thromboplastin Time 23.6 sec (23.0-31.2)
[2020-04-05 01:58] LABS: Alanine Aminotransferase 18 U/L (13-56); Anion Gap 9 (5-15); Aspartate Aminotransferase 19 U/L (15-37); BUN/Creatinine Ratio 14.2; Blood Urea Nitrogen 16 mg/dL (7-18); Calcium 7.7 mg/dL (8.5-10.1); Carbon Dioxide 27 mmol/L (21-32); Chloride 103 mmol/L (98-107); GFR African American 70 mL/min; GFR Non-African American 58 mL/min; Glucose 92 mg/dL (74-106); Magnesium 1.9 mg/dL (1.6-2.6); Sodium 139 mmol/L (136-145)
[2020-04-05 02:03] LABS: Alkaline Phosphatase 47 U/L (45-117); Bilirubin, Total 1.6 mg/dL (0.2-1.0); Total Protein 4.6 g/dL (6.4-8.2)
[2020-04-05 02:05] LABS: Potassium 2.6 mmol/L (3.5-5.1)
[2020-04-05] MEDS ORDERED: POTASSIUM EFFERVESENT TAB 25 MEQ PO ONE ×2 (02:30→05:00)
[2020-04-05] MEDS ORDERED: HYDROcodone-ACET 7.5/325MG TAB PO ONE (02:30)
[2020-04-05] MEDS ORDERED: POTASSIUM CHL 20MEQ/100ML 100 ML IV ONE (02:30)
[2020-04-05] MEDS ORDERED: MORPHINE SULFATE 4 MG/ML SYR/VIAL IV ONE (03:45)
[2020-04-05] MEDS ORDERED: LIDOCAINE 50MG/5ML INJ 5ML SYRINGE IV ONE (05:00)
[2020-04-05] MEDS ORDERED: LIDOCAINE 1% HCL (LOCAL ANESTH.) INJ 20ML MDV ONE (05:08)
[2020-04-05 05:09] VITALS: BP 102/56
== END 2020-04-05 05:09 | disposition home or self-care (01) ==
LOC: ER 23:26
DX: I13.0 Hypertensive heart and chronic kidney disease with heart failure and stage 1 through stage 4 chronic kidney disease, or unspecified chronic kidney disease (principal); N18.9 Chronic kidney disease, unspecified; I50.9 Heart failure, unspecified; E87.6 Hypokalemia; Z32.02 Encounter for pregnancy test, result negative; Z90.49 Acquired absence of other specified parts of digestive tract; Z98.51 Tubal ligation status
CPT/HCPCS: 36415; 71045; 80053; 81001; 81025; 83735; 83880; 84484; 85025; 85610; 85730; 96365; 96366; 96375; 99285; J1940; J2001; J2270; J3480

== ENCOUNTER 2020-06-07 01:26 | Inpatient (IN) | payer BC, MEDICAID ==
[~2020-06-07] VITALS: Ht 162.6 cm; Wt 90.7 kg
[2020-06-07 02:39] LABS: Basophils # (auto) 0.1 10 ^3/uL (0-0.2); Lymphocytes # (auto) 0.9 10 ^3/uL (0.4-5.4); Monocytes # (auto) 0.4 10 ^3/uL (0-1.3); Neutrophils # (auto) 5.4 10 ^3/uL (1.6-8.6); White Blood Cell 6.9 10^3/uL (4.4-10.8)
[2020-06-07 02:41] LABS: Eosinophils # (auto) 0 10 ^3/uL (0-0.8); Eosinophils % (auto) 0.7 % (0.0-7.0); Hematocrit 41.4 % (36.0-46.0); Hemoglobin 13.2 g/dL (12.2-16.2); Lymphocytes % (auto) 13.4 % (10.0-50.0); Mean Corpuscular Hemoglobin 22.2 pg (28.0-32.0); Mean Corpuscular Hgb Conc. 31.8 g/dL (32.0-36.0); Neutrophils % (auto) 78.9 % (37.0-80.0); Nucleated Red Blood Cells % 0.2 %; Platelet Count (auto) 246 10^3/uL (140-450); Red Blood Cells 5.91 10^6/uL (4.0-5.20)
[2020-06-07 02:45] LABS: Red Cell Distribution Width 20.5 % (11.8-14.3)
[2020-06-07 02:53] LABS: INR 0.97 (0.9-1.15)
[2020-06-07 02:58] LABS: Albumin 1.9 g/dL (3.4-5.0); BUN/Creatinine Ratio 14.6; Calcium 6.6 mg/dL (8.5-10.1); Magnesium 1.9 mg/dL (1.6-2.6)
[2020-06-07 03:03] LABS: Bilirubin, Total 1.2 mg/dL (0.2-1.0); Total Protein 4.7 g/dL (6.4-8.2)
[2020-06-07 03:06] LABS: Potassium 2.6 mmol/L (3.5-5.1)
[2020-06-07] MEDS ORDERED: POTASSIUM EFFERVESENT TAB 25 MEQ PO ONE (03:30)
[2020-06-07] MEDS ORDERED: POTASSIUM CHL 20MEQ/100ML 100 ML IV ONE (04:15)
[2020-06-07] MEDS ORDERED: FUROSEMIDE 40 MG/4 ML VIAL IV ONE (04:15)
[2020-06-07] MEDS ORDERED: ACETAMINOPHEN 500 MG TAB PO ONE (06:15)
[2020-06-07] MEDS ORDERED: ACETAMINOPHEN 325 MG TAB PO PRN (07:30)
[2020-06-07] MEDS ORDERED: NITROGLYCERIN 0.4 MG SL TAB SL PRN (07:30)
[2020-06-07] MEDS ORDERED: MORPHINE SULF INJ 2 MG/ML SYRINGE 1ML IV PRN (07:30)
[2020-06-07] MEDS ORDERED: CALCIUM GLUC 1,000mg/50ml-NS 50 ML IV ONE (07:30)
[2020-06-07] MEDS ORDERED: ALBUMIN 5% 50 ML IV ONE (07:30)
[2020-06-07] MEDS ORDERED: ONDANSETRON HCL 4 MG/2 ML VIAL IV PRN (07:30)
[2020-06-07] MEDS ORDERED: DOCUSATE SOD 100 MG CAP PO PRN (07:30)
[2020-06-07] MEDS: MORPHINE SULFATE 4 MG/ML SYR/VIAL IV PRN ×3 (07:47→22:53)
[2020-06-07 08:09] LABS: Albumin 1.8 g/dL (3.4-5.0); Calcium 7.2 mg/dL (8.5-10.1); Potassium 3.2 mmol/L (3.5-5.1)
[2020-06-07 08:12] LABS: BUN/Creatinine Ratio 14.7; Bilirubin, Total 1.4 mg/dL (0.2-1.0); Total Protein 4.5 g/dL (6.4-8.2)
[2020-06-07 08:22] LABS: Basophils # (auto) 0.1 10 ^3/uL (0-0.2); Eosinophils # (auto) 0.1 10 ^3/uL (0-0.8); Eosinophils % (auto) 1.1 % (0.0-7.0); Lymphocytes # (auto) 0.8 10 ^3/uL (0.4-5.4)
[2020-06-07 08:23] LABS: Basophils % (auto) 0.9 % (0.0-2.0); Hematocrit 41.3 % (36.0-46.0); Hemoglobin 12.9 g/dL (12.2-16.2); Lymphocytes % (auto) 13.6 % (10.0-50.0); Mean Corpuscular Hgb Conc. 31.3 g/dL (32.0-36.0); Mean Corpuscular Volume 70.1 fL (80.0-100.0); Monocytes # (auto) 0.4 10 ^3/uL (0-1.3); Monocytes % (auto) 6.5 % (0.0-12.0); Neutrophils # (auto) 4.5 10 ^3/uL (1.6-8.6); Neutrophils % (auto) 77.9 % (37.0-80.0); Nucleated Red Blood Cells % 0.2 %; Platelet Count (auto) 210 10^3/uL (140-450); Red Blood Cells 5.89 10^6/uL (4.0-5.20); Red Cell Distribution Width 20.5 % (11.8-14.3); White Blood Cell 5.8 10^3/uL (4.4-10.8)
[2020-06-07] MEDS ORDERED: FUROSEMIDE 40 MG/4 ML VIAL IV SCH (10:00)
[2020-06-07] MEDS: HEPARIN SODIUM (PORCINE) 5000 UNITS/ML 1ML VIAL SC SCH ×2 (10:00→22:15)
[2020-06-07] MEDS: MULTIPLE VITAMIN TAB PO SCH (10:00)
[2020-06-07 10:05] VITALS: BP 97/66
[2020-06-07 12:26] VITALS: BP 87/61
[2020-06-07] MEDS: ZINC SULFATE 220mg CAP or TAB PO SCH (13:15)
[2020-06-07] MEDS: POTASSIUM CHL 20 Meq TABLET PO SCH (13:16)
[2020-06-07] MEDS: FAMOTIDINE 20 MG TAB PO SCH ×2 (13:18→22:14)
[2020-06-07] MEDS: ASCORBIC ACID 500 MG TAB PO SCH ×2 (13:19→22:14)
[2020-06-07] MEDS: SODIUM CHLOR 0.9% PF (SALINE LOCK) 10ML VIAL/SYR IV SCH ×2 (14:00→22:00)
[2020-06-07] MEDS: BUMETANIDE 2.5mg/10ml (0.25 mg/ml) INJ IV SCH ×2 (14:46→22:00)
[2020-06-07] MEDS: ALBUMIN 25% 100 ML IV SCH ×2 (14:46→22:16)
[2020-06-07 16:19] VITALS: BP 98/57
[2020-06-07] MEDS: SILDENAFIL CITRATE 20 MG TAB PO SCH (19:46)
[2020-06-07 20:20] VITALS: BP 90/64
[2020-06-07 22:00] VITALS: BP 90/64
[2020-06-08] MEDS: MORPHINE SULFATE 4 MG/ML SYR/VIAL IV PRN (03:00)
[2020-06-08 05:00] VITALS: BP 96/59
[2020-06-08] MEDS: SODIUM CHLOR 0.9% PF (SALINE LOCK) 10ML VIAL/SYR IV SCH ×3 (05:43→21:33)
[2020-06-08 06:35] LABS: Eosinophils # (auto) 0 10 ^3/uL (0-0.8); Eosinophils % (auto) 0.7 % (0.0-7.0); Nucleated Red Blood Cells % 0.5 %; White Blood Cell 6.8 10^3/uL (4.4-10.8)
[2020-06-08 06:37] LABS: Basophils # (auto) 0 10 ^3/uL (0-0.2); Basophils % (auto) 0.7 % (0.0-2.0); Hematocrit 42.2 % (36.0-46.0); Hemoglobin 12.9 g/dL (12.2-16.2); Lymphocytes # (auto) 1.1 10 ^3/uL (0.4-5.4); Lymphocytes % (auto) 15.7 % (10.0-50.0); Mean Corpuscular Hemoglobin 21.8 pg (28.0-32.0); Mean Corpuscular Hgb Conc. 30.6 g/dL (32.0-36.0); Mean Corpuscular Volume 71.2 fL (80.0-100.0); Monocytes # (auto) 0.5 10 ^3/uL (0-1.3); Monocytes % (auto) 7.2 % (0.0-12.0); Neutrophils # (auto) 5.2 10 ^3/uL (1.6-8.6); Neutrophils % (auto) 75.7 % (37.0-80.0); Platelet Count (auto) 237 10^3/uL (140-450); Red Blood Cells 5.93 10^6/uL (4.0-5.20); Red Cell Distribution Width 20.6 % (11.8-14.3)
[2020-06-08 07:05] LABS: Albumin 2.7 g/dL (3.4-5.0); BUN/Creatinine Ratio 14.1; Calcium 7.2 mg/dL (8.5-10.1); Magnesium 2.3 mg/dL (1.6-2.6); Potassium 3.8 mmol/L (3.5-5.1); Total Protein 5.1 g/dL (6.4-8.2)
[2020-06-08 08:31] VITALS: BP 111/52
[2020-06-08 09:15] LABS: Amphetamine Screen, Urine POSITIVE (NEGATIVE); Barbiturate Scree,Urine NEGATIVE (NEGATIVE); Benzodiazephine Screen, Urine NEGATIVE (NEGATIVE); Cannabinoid Screen, Urine NEGATIVE (NEGATIVE); Cocaine Screen, Urine NEGATIVE (NEGATIVE); Opiate Scree,Urine POSITIVE (NEGATIVE)
[2020-06-08 09:21] LABS: Phencyclidine Screen, Urine NEGATIVE (NEGATIVE)
[2020-06-08 09:59] LABS: Urine Bacteria MOD /hpf (None Seen); Urine Blood 3+ /uL (Negative); Urine Hyaline Cast MANY /lpf (0 - 2); Urine Specific Gravity 1.021 (1.001-1.035); Urine WBC 259 /hpf (0 - 5)
[2020-06-08] MEDS: SILDENAFIL CITRATE 20 MG TAB PO SCH ×3 (10:05→20:00)
[2020-06-08] MEDS: BUMETANIDE 2.5mg/10ml (0.25 mg/ml) INJ IV SCH ×2 (10:06→21:33)
[2020-06-08] MEDS: ALBUMIN 25% 100 ML IV SCH ×2 (10:06→21:32)
[2020-06-08] MEDS: MULTIPLE VITAMIN TAB PO SCH (10:07)
[2020-06-08] MEDS: ASCORBIC ACID 500 MG TAB PO SCH ×2 (10:07→21:32)
[2020-06-08] MEDS: POTASSIUM CHL 20 Meq TABLET PO SCH (10:07)
[2020-06-08] MEDS: ZINC SULFATE 220mg CAP or TAB PO SCH (10:07)
[2020-06-08] MEDS: FAMOTIDINE 20 MG TAB PO SCH ×2 (10:07→21:32)
[2020-06-08] MEDS: HEPARIN SODIUM (PORCINE) 5000 UNITS/ML 1ML VIAL SC SCH ×2 (10:08→21:42)
[2020-06-08 12:35] VITALS: BP 91/65
[2020-06-08] MEDS: SODIUM CHLORIDE 0.9% 1,000 ML IV SCH (13:30)
[2020-06-08] MEDS: HYDROcodone-ACET 5/325MG TAB PO PRN ×2 (14:40→23:02)
[2020-06-08] MEDS: cefTRIAXone 1GM/50ML D5W 50 ML IV SCH (16:08)
[2020-06-08 16:36] VITALS: BP 104/70
[2020-06-08 22:45] VITALS: BP 88/75
[2020-06-09] MEDS: SODIUM CHLORIDE 0.9% 1,000 ML IV SCH (02:46)
[2020-06-09] MEDS: HYDROcodone-ACET 5/325MG TAB PO PRN ×3 (03:18→19:25)
[2020-06-09 05:29] VITALS: BP 95/54
[2020-06-09] MEDS: SODIUM CHLOR 0.9% PF (SALINE LOCK) 10ML VIAL/SYR IV SCH ×3 (06:00→22:11)
[2020-06-09 06:33] LABS: Basophils # (auto) 0.1 10 ^3/uL (0-0.2); Monocytes # (auto) 0.5 10 ^3/uL (0-1.3); Monocytes % (auto) 5.9 % (0.0-12.0); Nucleated Red Blood Cells % 0.3 %
[2020-06-09 06:36] LABS: Basophils % (auto) 0.9 % (0.0-2.0); Eosinophils # (auto) 0.1 10 ^3/uL (0-0.8); Eosinophils % (auto) 0.7 % (0.0-7.0); Hematocrit 41.6 % (36.0-46.0); Hemoglobin 12.9 g/dL (12.2-16.2); Lymphocytes % (auto) 10.9 % (10.0-50.0); Mean Corpuscular Volume 70.9 fL (80.0-100.0); Neutrophils # (auto) 7.2 10 ^3/uL (1.6-8.6); Neutrophils % (auto) 81.6 % (37.0-80.0); Platelet Count (auto) 267 10^3/uL (140-450); Red Blood Cells 5.86 10^6/uL (4.0-5.20); Red Cell Distribution Width 20.2 % (11.8-14.3); White Blood Cell 8.8 10^3/uL (4.4-10.8)
[2020-06-09 06:54] LABS: Calcium 7.4 mg/dL (8.5-10.1); Magnesium 2.3 mg/dL (1.6-2.6)
[2020-06-09 07:05] LABS: BUN/Creatinine Ratio 20.7
[2020-06-09] MEDS: SILDENAFIL CITRATE 20 MG TAB PO SCH ×3 (08:17→19:47)
[2020-06-09] MEDS: ALBUMIN 25% 100 ML IV SCH ×2 (08:19→22:10)
[2020-06-09 08:44] VITALS: BP 91/53
[2020-06-09] MEDS: cefTRIAXone 1GM/50ML D5W 50 ML IV SCH (10:33)
[2020-06-09] MEDS: BUMETANIDE 2.5mg/10ml (0.25 mg/ml) INJ IV SCH ×2 (10:33→22:11)
[2020-06-09] MEDS: ZINC SULFATE 220mg CAP or TAB PO SCH (10:33)
[2020-06-09] MEDS: POTASSIUM CHL 20 Meq TABLET PO SCH (10:34)
[2020-06-09] MEDS: MULTIPLE VITAMIN TAB PO SCH (10:34)
[2020-06-09] MEDS: ASCORBIC ACID 500 MG TAB PO SCH ×2 (10:34→22:12)
[2020-06-09] MEDS: HEPARIN SODIUM (PORCINE) 5000 UNITS/ML 1ML VIAL SC SCH ×2 (10:34→22:11)
[2020-06-09] MEDS: FAMOTIDINE 20 MG TAB PO SCH ×2 (10:34→22:12)
[2020-06-09 12:39] VITALS: BP 100/66
[2020-06-09 17:16] VITALS: BP 104/68
[2020-06-09 22:00] VITALS: BP 102/68
[2020-06-10] MEDS: HYDROcodone-ACET 5/325MG TAB PO PRN ×2 (01:06→05:49)
[2020-06-10 05:00] VITALS: BP 109/80
[2020-06-10] MEDS: SODIUM CHLOR 0.9% PF (SALINE LOCK) 10ML VIAL/SYR IV SCH ×2 (06:00→14:09)
[2020-06-10 06:23] LABS: Basophils # (auto) 0.1 10 ^3/uL (0-0.2); Eosinophils # (auto) 0.1 10 ^3/uL (0-0.8); Eosinophils % (auto) 1.2 % (0.0-7.0); Hemoglobin 12.5 g/dL (12.2-16.2); Lymphocytes # (auto) 0.8 10 ^3/uL (0.4-5.4); Monocytes # (auto) 0.4 10 ^3/uL (0-1.3); Neutrophils # (auto) 5.7 10 ^3/uL (1.6-8.6)
[2020-06-10 06:27] LABS: Basophils % (auto) 1.2 % (0.0-2.0); Lymphocytes % (auto) 10.9 % (10.0-50.0); Mean Corpuscular Hgb Conc. 31.2 g/dL (32.0-36.0); Mean Corpuscular Volume 70.6 fL (80.0-100.0); Monocytes % (auto) 5.8 % (0.0-12.0); Neutrophils % (auto) 80.9 % (37.0-80.0); Nucleated Red Blood Cells % 0.2 %; Platelet Count (auto) 228 10^3/uL (140-450); Red Blood Cells 5.67 10^6/uL (4.0-5.20); Red Cell Distribution Width 19.7 % (11.8-14.3)
[2020-06-10 06:36] LABS: Calcium 7.5 mg/dL (8.5-10.1); Magnesium 2.2 mg/dL (1.6-2.6); Potassium 3.4 mmol/L (3.5-5.1)
[2020-06-10] MEDS: cefTRIAXone 1GM/50ML D5W 50 ML IV SCH (08:49)
[2020-06-10 09:00] VITALS: BP 102/56
[2020-06-10] MEDS: SILDENAFIL CITRATE 20 MG TAB PO SCH ×2 (09:11→14:09)
[2020-06-10] MEDS: POTASSIUM CHL 20 Meq TABLET PO SCH (09:42)
[2020-06-10] MEDS: ASCORBIC ACID 500 MG TAB PO SCH (09:42)
[2020-06-10] MEDS: ZINC SULFATE 220mg CAP or TAB PO SCH (09:42)
[2020-06-10] MEDS: FAMOTIDINE 20 MG TAB PO SCH (09:42)
[2020-06-10] MEDS: MULTIPLE VITAMIN TAB PO SCH (09:42)
[2020-06-10] MEDS: HEPARIN SODIUM (PORCINE) 5000 UNITS/ML 1ML VIAL SC SCH (09:45)
[2020-06-10] MEDS: BUMETANIDE 2.5mg/10ml (0.25 mg/ml) INJ IV SCH (10:37)
[2020-06-10] MEDS: MORPHINE SULFATE 4 MG/ML SYR/VIAL IV PRN (10:37)
[2020-06-10] MEDS: ALBUMIN 25% 100 ML IV SCH (12:44)
[2020-06-10 13:00] VITALS: BP 108/71
[2020-06-10] MEDS ORDERED: metOLazone 5 MG TAB PO SCH (13:45)
[2020-06-10 14:32] VITALS: BP 108/71
== END 2020-06-10 16:30 | disposition home or self-care (01) | DRG 291 ==
LOC: ER 01:30 → TELE 07:18 → TELE-WESTW 10:00
PROVIDERS: ADMIT Nurse Practitioner Family; ATTEND Internal Medicine
DX: I13.0 Hypertensive heart and chronic kidney disease with heart failure and stage 1 through stage 4 chronic kidney disease, or unspecified chronic kidney disease (principal); N17.0 Acute kidney failure with tubular necrosis; I50.33 Acute on chronic diastolic (congestive) heart failure; N39.0 Urinary tract infection, site not specified; I27.29 Other secondary pulmonary hypertension; E87.6 Hypokalemia; E11.22 Type 2 diabetes mellitus with diabetic chronic kidney disease; N18.30 Chronic kidney disease, stage 3 unspecified; E88.09 Other disorders of plasma-protein metabolism, not elsewhere classified; F15.90 Other stimulant use, unspecified, uncomplicated; I25.10 Atherosclerotic heart disease of native coronary artery without angina pectoris; J45.909 Unspecified asthma, uncomplicated; Z79.899 Other long term (current) drug therapy; Z82.49 Family history of ischemic heart disease and other diseases of the circulatory system; Z82.5 Family history of asthma and other chronic lower respiratory diseases; Z83.3 Family history of diabetes mellitus; Z91.19 Patient's noncompliance with other medical treatment and regimen; Z90.49 Acquired absence of other specified parts of digestive tract; Z98.51 Tubal ligation status; Z82.61 Family history of arthritis
CPT/HCPCS: 36415; 71045; 76775; 80048; 80053; 80307; 81001; 81025; 82550; 83735; 83880; 84484; 85025; 85610; 87086; 87426; 93005; 93306; 96365; 96367; 96375; G0378; J0696; J2405; J3480; P9047

== ENCOUNTER 2020-07-05 11:33 | Emergency (ER) | payer BC, MEDICAID ==
[~2020-07-05] VITALS: Ht 160 cm; Wt 83.0 kg
[2020-07-05 14:12] LABS: Urine WBC None Seen /hpf (0 - 5)
[2020-07-05 14:20] LABS: Urine Bacteria NONE SEEN /hpf (None Seen); Urine Blood Negative /uL (Negative); Urine Specific Gravity 1.004 (1.001-1.035)
[2020-07-05] MEDS ORDERED: HYDROcodone-ACET 10/325MG TAB PO ONE (14:30)
[2020-07-05] MEDS ORDERED: CLINDAMYCIN 600MG IV 50 ML IV ONE (15:45)
[2020-07-05] MEDS ORDERED: CLIN300C8 PO (15:54)
[2020-07-05 17:06] VITALS: BP 97/62
[2020-07-05 18:38] LABS: Amphetamine Screen, Urine NEGATIVE (NEGATIVE); Barbiturate Scree,Urine NEGATIVE (NEGATIVE); Benzodiazephine Screen, Urine NEGATIVE (NEGATIVE); Cannabinoid Screen, Urine NEGATIVE (NEGATIVE); Cocaine Screen, Urine NEGATIVE (NEGATIVE); Opiate Scree,Urine NEGATIVE (NEGATIVE); Phencyclidine Screen, Urine NEGATIVE (NEGATIVE)
== END 2020-07-05 17:09 | disposition home or self-care (01) ==
LOC: ER 11:33
DX: M79.89 Other specified soft tissue disorders (principal); I11.0 Hypertensive heart disease with heart failure; I50.9 Heart failure, unspecified; Z90.49 Acquired absence of other specified parts of digestive tract; Z98.51 Tubal ligation status; Z20.822 Contact with and (suspected) exposure to COVID-19
CPT/HCPCS: 36415; 80307; 81001; 87426; 93005; 93971; 96365; 99285; J3490

== ENCOUNTER 2020-09-16 11:44 | Inpatient (IN) | payer BC, MEDICAID ==
[~2020-09-16] VITALS: Ht 162.6 cm; Wt 88.8 kg
[~2020-09-16 11:44] MED LIST changes: -BUME1TAB3 PO; -CHOL20009 PO; +FUR20T PO; +MID10T PO; +POTA-180 PO; -SPIR25TA8 PO; +TRAZ50TA2 PO
[2020-09-16 13:05] LABS: Basophils # (auto) 0.1 10 ^3/uL (0-0.2); Eosinophils # (auto) 0.1 10 ^3/uL (0-0.8); Monocytes # (auto) 0.4 10 ^3/uL (0-1.3); Neutrophils # (auto) 4.4 10 ^3/uL (1.6-8.6); Nucleated Red Blood Cells % 0.2 %
[2020-09-16 13:08] LABS: Basophils % (auto) 1.5 % (0.0-2.0); Eosinophils % (auto) 0.9 % (0.0-7.0); Hematocrit 40.7 % (36.0-46.0); Hemoglobin 12.6 g/dL (12.2-16.2); Lymphocytes # (auto) 0.7 10 ^3/uL (0.4-5.4); Lymphocytes % (auto) 12.3 % (10.0-50.0); Mean Corpuscular Hemoglobin 21.9 pg (28.0-32.0); Mean Corpuscular Hgb Conc. 31.1 g/dL (32.0-36.0); Mean Corpuscular Volume 70.3 fL (80.0-100.0); Monocytes % (auto) 6.7 % (0.0-12.0); Neutrophils % (auto) 78.6 % (37.0-80.0); Red Blood Cells 5.78 10^6/uL (4.0-5.20); Red Cell Distribution Width 19.8 % (11.8-14.3); White Blood Cell 5.6 10^3/uL (4.4-10.8)
[2020-09-16] MEDS ORDERED: FUROSEMIDE 20 MG/2 ML VIAL IV ONE (13:15)
[2020-09-16 13:17] LABS: Albumin 1.8 g/dL (3.4-5.0); BUN/Creatinine Ratio 20.2; Calcium 7.1 mg/dL (8.5-10.1); Magnesium 2.1 mg/dL (1.6-2.6); Potassium 3.4 mmol/L (3.5-5.1)
[2020-09-16 13:22] LABS: Bilirubin, Total 1.2 mg/dL (0.2-1.0); Total Protein 4.2 g/dL (6.4-8.2)
[2020-09-16] MEDS ORDERED: MIDODRINE HCL 10 MG TAB PO ONE (14:00)
[2020-09-16] MEDS ORDERED: CALCIUM GLUC 1,000mg/50ml-NS 50 ML IV ONE ×3 (14:45)
[2020-09-16] MEDS: CALCIUM GLUC 1,000mg/50ml-NS 50 ML IV SCH ×3 (15:14→16:51)
[2020-09-16] MEDS ORDERED: ONDANSETRON HCL 4 MG/2 ML VIAL IV PRN (17:00)
[2020-09-16] MEDS ORDERED: ACETAMINOPHEN 325 MG TAB PO PRN (17:00)
[2020-09-16] MEDS ORDERED: NITROGLYCERIN 0.4 MG SL TAB SL PRN (17:00)
[2020-09-16] MEDS ORDERED: POTASSIUM CHL 20 Meq TABLET PO ONE (17:00)
[2020-09-16] MEDS ORDERED: MORPHINE SULF INJ 2 MG/ML SYRINGE 1ML IV PRN (17:00)
[2020-09-16 18:15] VITALS: BP 98/61
[2020-09-16] MEDS: MORPHINE SULF INJ 2 MG/ML SYRINGE 1ML IV PRN (18:54)
[2020-09-16 20:00] VITALS: BP 91/40
[2020-09-16 22:00] VITALS: BP 91/40
[2020-09-16] MEDS: MIDODRINE HCL 10 MG TAB PO SCH (22:00)
[2020-09-16] MEDS: FUROSEMIDE 40 MG/4 ML VIAL IV SCH (22:00)
[2020-09-17] MEDS: MORPHINE SULF INJ 2 MG/ML SYRINGE 1ML IV PRN ×2 (00:45→09:23)
[2020-09-17] MEDS: HYDROcodone-ACET 5/325MG TAB PO PRN (02:46)
[2020-09-17 05:00] VITALS: BP 96/53
[2020-09-17 05:39] LABS: Potassium 3.5 mmol/L (3.5-5.1)
[2020-09-17 05:43] LABS: Calcium 7.3 mg/dL (8.5-10.1)
[2020-09-17] MEDS: FUROSEMIDE 40 MG/4 ML VIAL IV SCH ×2 (06:00→18:45)
[2020-09-17] MEDS: MIDODRINE HCL 10 MG TAB PO SCH ×3 (06:17→22:22)
[2020-09-17 09:00] VITALS: BP 95/52
[2020-09-17] MEDS: ENOXAPARIN SOD 40 MG/0.4 ML SYRINGE SC SCH (09:23)
[2020-09-17 12:53] VITALS: BP 94/43
[2020-09-17] MEDS: SILDENAFIL CITRATE 20 MG TAB PO SCH ×2 (14:43→20:00)
[2020-09-17 17:00] VITALS: BP 85/56
[2020-09-17 20:00] VITALS: BP 113/71
[2020-09-17 22:00] VITALS: BP 113/71
[2020-09-18] MEDS: MORPHINE SULF INJ 2 MG/ML SYRINGE 1ML IV PRN (00:15)
[2020-09-18 05:00] VITALS: BP 95/54
[2020-09-18] MEDS: HYDROcodone-ACET 5/325MG TAB PO PRN (05:40)
[2020-09-18] MEDS: FUROSEMIDE 40 MG/4 ML VIAL IV SCH (06:21)
[2020-09-18] MEDS: MIDODRINE HCL 10 MG TAB PO SCH ×2 (06:21→13:45)
[2020-09-18] MEDS: SILDENAFIL CITRATE 20 MG TAB PO SCH ×2 (07:24→13:45)
[2020-09-18 08:00] VITALS: BP 87/47
[2020-09-18 09:00] VITALS: BP 87/47
[2020-09-18] MEDS ORDERED: AMBRISENTAN 10MG TAB PO SCH (10:00)
[2020-09-18] MEDS: ENOXAPARIN SOD 40 MG/0.4 ML SYRINGE SC SCH (10:11)
[2020-09-18 12:38] LABS: Potassium 3.6 mmol/L (3.5-5.1)
[2020-09-18 12:41] LABS: BUN/Creatinine Ratio 19.8; Calcium 7.4 mg/dL (8.5-10.1)
[2020-09-18 13:16] VITALS: BP 93/59
[2020-09-18 14:54] VITALS: BP 93/59
== END 2020-09-18 13:50 | disposition home or self-care (01) | DRG 314 ==
LOC: ER 11:44 → TELE-WESTW 17:12
PROVIDERS: ADMIT Internal Medicine; ATTEND Internal Medicine
DX: I27.20 Pulmonary hypertension, unspecified (principal); J96.21 Acute and chronic respiratory failure with hypoxia; I50.23 Acute on chronic systolic (congestive) heart failure; I11.0 Hypertensive heart disease with heart failure; E66.01 Morbid (severe) obesity due to excess calories; E88.09 Other disorders of plasma-protein metabolism, not elsewhere classified; Z20.822 Contact with and (suspected) exposure to COVID-19; I95.9 Hypotension, unspecified; R07.89 Other chest pain; Z79.899 Other long term (current) drug therapy; Z82.49 Family history of ischemic heart disease and other diseases of the circulatory system; Z68.33 Body mass index [BMI] 33.0-33.9, adult; Z99.81 Dependence on supplemental oxygen; Z82.5 Family history of asthma and other chronic lower respiratory diseases; Z83.3 Family history of diabetes mellitus; Z90.49 Acquired absence of other specified parts of digestive tract; Z98.51 Tubal ligation status
CPT/HCPCS: 36415; 71045; 80048; 80053; 83735; 83880; 84484; 85025; 87081; 87426; 93005; 96365; 96375; G0378

== ENCOUNTER 2020-09-29 21:35 | Emergency (ER) | payer BC, MEDICAID ==
[~2020-09-29] VITALS: Ht 162.6 cm; Wt 83.5 kg
[2020-09-29 22:33] LABS: Basophils # (auto) 0.1 10 ^3/uL (0-0.2); Eosinophils # (auto) 0.1 10 ^3/uL (0-0.8); Hemoglobin 12.8 g/dL (12.2-16.2); Lymphocytes # (auto) 0.5 10 ^3/uL (0.4-5.4); Mean Corpuscular Volume 70.5 fL (80.0-100.0); Monocytes # (auto) 0.4 10 ^3/uL (0-1.3); Neutrophils # (auto) 3.4 10 ^3/uL (1.6-8.6)
[2020-09-29 22:36] LABS: Basophils % (auto) 1.4 % (0.0-2.0); Eosinophils % (auto) 1.9 % (0.0-7.0); Hematocrit 40.2 % (36.0-46.0); Lymphocytes % (auto) 11.1 % (10.0-50.0); Mean Corpuscular Hemoglobin 22.4 pg (28.0-32.0); Mean Corpuscular Hgb Conc. 31.8 g/dL (32.0-36.0); Monocytes % (auto) 9.3 % (0.0-12.0); Neutrophils % (auto) 76.3 % (37.0-80.0); Nucleated Red Blood Cells % 0.2 %; Red Blood Cells 5.71 10^6/uL (4.0-5.20); Red Cell Distribution Width 19.3 % (11.8-14.3); White Blood Cell 4.4 10^3/uL (4.4-10.8)
[2020-09-29 22:53] LABS: Albumin 2.2 g/dL (3.4-5.0); Calcium 7.5 mg/dL (8.5-10.1)
[2020-09-29 22:56] LABS: BUN/Creatinine Ratio 16.7
[2020-09-29 22:58] LABS: Bilirubin, Total 1.3 mg/dL (0.2-1.0); Total Protein 4.9 g/dL (6.4-8.2)
[2020-09-29 23:05] LABS: Potassium 2.8 mmol/L (3.5-5.1)
[2020-09-29] MEDS ORDERED: POTASSIUM CHL 20MEQ/100ML 100 ML IV ONE (23:15)
[2020-09-29] MEDS ORDERED: POTASSIUM CHL 20 Meq TABLET PO ONE (23:15)
[2020-09-29] MEDS ORDERED: SODIUM CHLORIDE 0.9% 1,000 ML IV ONE (23:15)
[2020-09-30] MEDS ORDERED: IOHEXOL 350 MG/ML 100ML IJ ONE (00:58)
[2020-09-30 04:04] VITALS: BP 102/67
== END 2020-09-30 05:33 | disposition home or self-care (01) ==
LOC: ER 21:37
DX: J06.9 Acute upper respiratory infection, unspecified (principal); I11.0 Hypertensive heart disease with heart failure; I50.9 Heart failure, unspecified; Z90.49 Acquired absence of other specified parts of digestive tract; Z98.51 Tubal ligation status; Z98.890 Other specified postprocedural states; Z20.822 Contact with and (suspected) exposure to COVID-19
CPT/HCPCS: 36415; 70498; 71045; 71275; 80053; 83615; 83735; 85025; 87426; 96360; 96361; 99285; J3480; Q9967

== ENCOUNTER 2020-12-24 11:34 | Inpatient (IN) | payer BC, MEDICAID ==
[~2020-12-24] VITALS: Ht 162.6 cm; Wt 86.0 kg
[2020-12-24] MEDS ORDERED: DexAMETHasone SOD PHOS 10MG/1ML VIAL INJ IV ONE (11:45)
[2020-12-24 12:37] LABS: Basophils # (auto) 0 10 ^3/uL (0-0.2); Basophils % (auto) 0.4 % (0.0-2.0); Eosinophils # (auto) 0.2 10 ^3/uL (0-0.8); Hemoglobin 12.4 g/dL (12.2-16.2); Lymphocytes # (auto) 0.4 10 ^3/uL (0.4-5.4); Nucleated Red Blood Cells % 0.1 %
[2020-12-24 12:39] LABS: Eosinophils % (auto) 3.3 % (0.0-7.0); Lymphocytes % (auto) 7.6 % (10.0-50.0); Monocytes # (auto) 0.3 10 ^3/uL (0-1.3); Monocytes % (auto) 6.1 % (0.0-12.0); Neutrophils # (auto) 4.4 10 ^3/uL (1.6-8.6); Neutrophils % (auto) 82.6 % (37.0-80.0); White Blood Cell 5.3 10^3/uL (4.4-10.8)
[2020-12-24 12:44] LABS: Red Blood Cells 5.67 10^6/uL (4.0-5.20)
[2020-12-24 12:45] LABS: Hematocrit 39.7 % (36.0-46.0); Mean Corpuscular Hemoglobin 21.9 pg (28.0-32.0); Mean Corpuscular Hgb Conc. 31.2 g/dL (32.0-36.0)
[2020-12-24 13:17] LABS: Albumin 1.2 g/dL (3.4-5.0); Calcium 7.5 mg/dL (8.5-10.1)
[2020-12-24 13:27] LABS: BUN/Creatinine Ratio 15.4; Bilirubin, Total 1.6 mg/dL (0.2-1.0); CRP High Sensitivity 14.5 mg/dL (< 0.3); Total Protein 4.6 g/dL (6.4-8.2)
[2020-12-24 13:40] LABS: Potassium 2.5 mmol/L (3.5-5.1)
[2020-12-24] MEDS ORDERED: POTASSIUM EFFERVESENT TAB 25 MEQ PO ONE (13:45)
[2020-12-24] MEDS ORDERED: FUROSEMIDE 40 MG/4 ML VIAL IV ONE (15:15)
[2020-12-24 15:34] LABS: Urine Bacteria NONE SEEN /hpf (None Seen); Urine Blood Negative /uL (Negative); Urine Specific Gravity 1.006 (1.001-1.035); Urine WBC 7 /hpf (0 - 5)
[2020-12-24] MEDS ORDERED: NOREPINEPHRINE 8 MG/250ML KIT 250 ML IV SCH (16:00)
[2020-12-24] MEDS ORDERED: ACETAMINOPHEN 500 MG TAB PO ONE (16:00)
[2020-12-24] MEDS ORDERED: cefTRIAXone 1GM/50ML D5W 50 ML IV ONE (17:30)
[2020-12-24] MEDS ORDERED: NITROGLYCERIN 0.4 MG SL TAB SL PRN (19:00)
[2020-12-24] MEDS ORDERED: ACETAMINOPHEN 500 MG TAB PO PRN (19:00)
[2020-12-24] MEDS ORDERED: REMDESIVIR PER PHARMACY 0 ML IV SCH (19:00)
[2020-12-24] MEDS ORDERED: ONDANSETRON HCL 4 MG/2 ML VIAL IV PRN (19:00)
[2020-12-24] MEDS ORDERED: MORPHINE SULFATE INJECTION 2 MG/ML SYRG IV PRN ×2 (19:00)
[2020-12-24] MEDS ORDERED: HYDROcodone-ACET 5/325MG TAB PO PRN (19:00)
[2020-12-24] MEDS ORDERED: IOHEXOL 350 MG/ML 100ML IJ ONE (19:06)
[2020-12-24] MEDS ORDERED: POTASSIUM CHLORIDE 40 MEQ, LIDOCAINE 1% (LOCAL ANESTH.) 4 ML in SODIUM CHL 0.9% 250 ML IV ONE (19:15)
[2020-12-24] MEDS: ZINC SULFATE 220mg CAP or TAB PO SCH (19:21)
[2020-12-24] MEDS: CHOLECALCIFEROL (VITD3) 2,000 UNIT CAP/TAB PO SCH (19:22)
[2020-12-24] MEDS: APIXABAN 5 MG TAB PO SCH (20:45)
[2020-12-24] MEDS: SILDENAFIL CITRATE 20 MG TAB PO SCH (20:45)
[2020-12-24] MEDS: BUDESONIDE (INHALATION) 180 MCG IH IN SCH (22:00)
[2020-12-24] MEDS ORDERED: ENOXAPARIN SOD 40 MG/0.4 ML SYRINGE SC SCH (22:00)
[2020-12-24] MEDS: AZITHROMYCIN 500MG/ 250ML 250 ML IV SCH (22:06)
[2020-12-24] MEDS: DOPamine 1600MCG/ML D5W 250 ML IV SCH (22:06)
[2020-12-24] MEDS: ASCORBIC ACID 1,000 MG TAB PO SCH (22:07)
[2020-12-24 23:39] LABS: Lactic Acid w/Reflex 3.3 mmol/L (0.4-2.0)
[2020-12-24 23:50] LABS: CRP High Sensitivity 10.2 mg/dL (< 0.3)
[2020-12-25 02:19] VITALS: BP 98/65
[2020-12-25] MEDS: ACETAMINOPHEN 500 MG TAB PO PRN ×2 (06:50→18:52)
[2020-12-25] MEDS: SILDENAFIL CITRATE 20 MG TAB PO SCH ×3 (06:50→21:11)
[2020-12-25 07:32] LABS: Basophils # (auto) 0 10 ^3/uL (0-0.2); Eosinophils # (auto) 0 10 ^3/uL (0-0.8); Lymphocytes # (auto) 0.3 10 ^3/uL (0.4-5.4); Mean Corpuscular Hemoglobin 22.3 pg (28.0-32.0); Mean Corpuscular Hgb Conc. 31.9 g/dL (32.0-36.0); Monocytes # (auto) 0.3 10 ^3/uL (0-1.3); Red Blood Cells 5.63 10^6/uL (4.0-5.20); White Blood Cell 4.6 10^3/uL (4.4-10.8)
[2020-12-25 07:34] LABS: Basophils % (auto) 0.5 % (0.0-2.0); Eosinophils % (auto) 0.1 % (0.0-7.0); Hematocrit 39.3 % (36.0-46.0); Hemoglobin 12.5 g/dL (12.2-16.2); Lymphocytes % (auto) 6.3 % (10.0-50.0); Mean Corpuscular Volume 69.8 fL (80.0-100.0); Monocytes % (auto) 6.1 % (0.0-12.0); Nucleated Red Blood Cells % 0.1 %; Red Cell Distribution Width 19.1 % (11.8-14.3)
[2020-12-25 07:47] LABS: Albumin 1.4 g/dL (3.4-5.0); Calcium 7.7 mg/dL (8.5-10.1); Potassium 3.3 mmol/L (3.5-5.1)
[2020-12-25 07:50] LABS: BUN/Creatinine Ratio 14.1; Total Protein 5.1 g/dL (6.4-8.2)
[2020-12-25] MEDS: ASCORBIC ACID 1,000 MG TAB PO SCH (10:00)
[2020-12-25] MEDS: AZITHROMYCIN 500MG/ 250ML 250 ML IV SCH (10:00)
[2020-12-25] MEDS: APIXABAN 5 MG TAB PO SCH ×2 (10:00→21:10)
[2020-12-25] MEDS: CHOLECALCIFEROL (VITD3) 2,000 UNIT CAP/TAB PO SCH (10:00)
[2020-12-25] MEDS: ZINC SULFATE 220mg CAP or TAB PO SCH (10:00)
[2020-12-25] MEDS: DexAMETHasone SOD PHOS 10MG/1ML VIAL INJ IV SCH (11:15)
[2020-12-25] MEDS ORDERED: REMDESIVIR 200 MG in NS 210ml LOADING DOSE ADULT IV ONE (15:00)
[2020-12-25] MEDS: ALBUTEROL SULF HFA 90MCG INH 200DOSE IN PRN (18:51)
[2020-12-25] MEDS: DOPamine 1600MCG/ML D5W 250 ML IV SCH (19:00)
[2020-12-25] MEDS: BUDESONIDE (INHALATION) 180 MCG IH IN SCH (22:00)
[2020-12-26] MEDS: SILDENAFIL CITRATE 20 MG TAB PO SCH ×3 (05:31→21:42)
[2020-12-26] MEDS: BUDESONIDE (INHALATION) 180 MCG IH IN SCH ×3 (06:26→18:08)
[2020-12-26] MEDS: ALBUTEROL SULF HFA 90MCG INH 200DOSE IN PRN ×2 (06:26→18:32)
[2020-12-26] MEDS ORDERED: POTA10TA32 PO ×2 (09:29→09:51)
[2020-12-26] MEDS ORDERED: PENI500T2 PO (09:29)
[2020-12-26] MEDS ORDERED: METO2.5T PO (09:29)
[2020-12-26] MEDS ORDERED: DEXA6TAB PO (09:29)
[2020-12-26] MEDS ORDERED: BUME2TAB5 PO (09:29)
[2020-12-26] MEDS ORDERED: HYDR-4798 PO (09:29)
[2020-12-26] MEDS ORDERED: LACT10SO3 PO (10:07)
[2020-12-26] MEDS ORDERED: SPIR25TA8 PO (10:08)
[2020-12-26] MEDS: DexAMETHasone SOD PHOS 10MG/1ML VIAL INJ IV SCH (11:00)
[2020-12-26] MEDS: ZINC SULFATE 220mg CAP or TAB PO SCH (11:00)
[2020-12-26] MEDS: AZITHROMYCIN 500MG/ 250ML 250 ML IV SCH (11:00)
[2020-12-26] MEDS: CHOLECALCIFEROL (VITD3) 2,000 UNIT CAP/TAB PO SCH (11:01)
[2020-12-26] MEDS: ASCORBIC ACID 1,000 MG TAB PO SCH (11:01)
[2020-12-26] MEDS: APIXABAN 5 MG TAB PO SCH ×2 (11:01→21:42)
[2020-12-26] MEDS: REMDESIVIR 100mg 100 MG in SODIUM CHL 0.9% 230 ML IV SCH (15:01)
[2020-12-26] MEDS: DOPamine 1600MCG/ML D5W 250 ML IV SCH (17:47)
[2020-12-26 23:22] VITALS: BP 102/57
[2020-12-27] MEDS ORDERED: INFLUENZA QUAD 2021-2022 0.5 ML SYRG IM ONE (01:30)
[2020-12-27 05:00] VITALS: BP 93/71
[2020-12-27] MEDS: ALBUTEROL SULF HFA 90MCG INH 200DOSE IN PRN (06:24)
[2020-12-27] MEDS: BUDESONIDE (INHALATION) 180 MCG IH IN SCH (06:24)
[2020-12-27] MEDS: CHOLECALCIFEROL (VITD3) 2,000 UNIT CAP/TAB PO SCH (08:41)
[2020-12-27] MEDS: ASCORBIC ACID 1,000 MG TAB PO SCH (08:41)
[2020-12-27] MEDS: AZITHROMYCIN 500MG/ 250ML 250 ML IV SCH (08:41)
[2020-12-27] MEDS: ZINC SULFATE 220mg CAP or TAB PO SCH (08:41)
[2020-12-27] MEDS: APIXABAN 5 MG TAB PO SCH (08:42)
[2020-12-27] MEDS: DexAMETHasone SOD PHOS 10MG/1ML VIAL INJ IV SCH (08:43)
[2020-12-27 09:01] VITALS: BP 113/77
[2020-12-27 12:42] VITALS: BP 103/48
[2020-12-27] MEDS: REMDESIVIR 100mg 100 MG in SODIUM CHL 0.9% 230 ML IV SCH (14:20)
[2020-12-27] MEDS: SILDENAFIL CITRATE 20 MG TAB PO SCH (14:21)
[2020-12-27] MEDS ORDERED: DOXY-346 PO (15:11)
[2020-12-27] MEDS ORDERED: DEXA6TAB PO (15:11)
[2020-12-27 16:15] VITALS: BP 101/66
[2020-12-27 16:16] VITALS: BP 101/66
== END 2020-12-27 17:54 | disposition home or self-care (01) | DRG 177 ==
LOC: ER 11:34 → TELE 18:54 → TELE-EAST 12-26 23:20 → TELE 12-26 23:20 → TELE-EAST 12-26 23:23
PROVIDERS: ADMIT Nurse Practitioner Acute Care; ATTEND Hospitalist
PROC: XW033E5 Introduction of Remdesivir Anti-infective into Peripheral Vein, Percutaneous Approach, New Technology Group 5 (ICD-10-PCS; principal; 2020-12-25)
DX: U07.1 COVID-19 (principal); J96.21 Acute and chronic respiratory failure with hypoxia; E43 Unspecified severe protein-calorie malnutrition; J12.82 Pneumonia due to coronavirus disease 2019; I50.33 Acute on chronic diastolic (congestive) heart failure; E87.1 Hypo-osmolality and hyponatremia; N39.0 Urinary tract infection, site not specified; R18.8 Other ascites; I11.0 Hypertensive heart disease with heart failure; K74.60 Unspecified cirrhosis of liver; I27.29 Other secondary pulmonary hypertension; E87.6 Hypokalemia; Z68.32 Body mass index [BMI] 32.0-32.9, adult; Z90.49 Acquired absence of other specified parts of digestive tract; Z98.51 Tubal ligation status; Z83.3 Family history of diabetes mellitus
CPT/HCPCS: 36415; 71045; 71275; 80053; 81001; 82728; 83605; 83735; 83880; 84484; 85025; 85379; 85652; 86141; 87040; 87426; 93005; 94640; 96365; 96366; 96368; 96375; G0378; J0696; J1100; J2001

== ENCOUNTER 2024-02-10 08:53 | Inpatient (IN) | payer BC, MEDICAID ==
[~2024-02-10] VITALS: Ht 162.6 cm; Wt 89.5 kg
[~2024-02-10 08:53] MED LIST changes: -AMBR10TA3 PO; +AMBR1TAB PO; +DEXA6TAB PO; +DOXY-346 PO; -FUR20T PO; +FURO20TA4 PO; +HYDR-4798 PO; +LACT10SO3 PO; +PENI500T2 PO; -POTA-180 PO; +POTA-228 PO; +SPIR25TA8 PO; +TRAZ-227 PO; -TRAZ50TA2 PO
--- NOTE | 2024-02-10 09:14 | ED.PDOC ---
General HPI Comments 39 y.o female with PMH of CHF and a lung transplant x 10/21/22, presents to the ED for a chief complaint of back and flank pain that started 5 days ago. Patient describes pain as sharp, constant and has no alleviating or precipitating factors. Patient denies any recent trauma, falls, injuries and states pain came on set spontaneously. No hematuria, dysuria, fever, or chills reported. Chief Complaint: Flank Pain Time Seen by MD: 09:05 Primary Care Provider: BARNDON Reviewed notes: Nurses Notes, Medications, Allergies Allergies: Coded Allergies: NO KNOWN ALLERGIES (Unverified , 04/11/14) Home Meds Active Scripts Doxycycline (Monohydrate) (Doxycycline) 100 Mg Tab, 100 MG PO BID, #10 TAB Prov:JOSSIE MAHARAJ MD 12/27/20 Dexamethasone (Dexamethasone) 6 Mg Tab, 6 MG PO DAILY, #5 TAB Prov:JOSSIE MAHARAJ MD 12/27/20 Furosemide (Furosemide) 20 Mg Tab, 40 MG PO DAILY, #60 TAB Prov:MAHNAZ SNYDER MD 09/11/20 Midodrine HCl (Midodrine HCl) 10 Mg Tab, 5 MG PO Q8HR, #45 TAB Prov:MAHNAZ SNYDER MD 09/11/20 Reported Medications Spironolactone (Spironolactone) 25 Mg Tab, 1 TAB PO DAILY 12/26/20 Lactulose (Lactulose) 10 Gm/15 Ml Ginette, 30 ML PO TID 12/26/20 Potassium Chloride (Potassium Chloride ER) 10 Meq Tab, 10 MEQ PO DAILY, TAB 12/26/20 Penicillin V Potassium (Veetids) 500 Mg Tab, 1 TAB PO QID for 7 Days, #28 TAB 12/26/20 Hydrocodone-Acetaminophen (Hydrocodone Bitartrate/AC 10-325 mg) 1 Tab Tab, 1 TAB PO Q6HPRN for PAIN, TAB 12/26/20 Trazodone Hcl (Trazodone Hcl) 50 Mg Tab, 50 MG PO HS, MG 09/07/20 Ambrisentan (Letairis) 10 Mg Tab, 10 MG PO DAILY 01/10/20 Sildenafil Citrate (Revatio) 20 Mg Tab, 20 MG PO TID, TAB 12/22/19 Information Source: Patient Mode of Arrival: Ambulatory Severity: Severe Timing: Days (5) Duration: Since onset Onset: Spontaneous Symptoms: None History of: None Location: (R) Flank, (L)Flank Modifying factors: None associated signs and symptoms: Flank Pain, Back Pain Past Medical History PAST MEDICAL HISTORY: CHF Surgical History: Cholecystectomy, Tubal Ligation Surgical History (Other): Lung transplant EDUCATION MANAGERS History: No Pertinent EDUCATION MANAGERS History Family History Family History: Family hx of DM Social History Smoker: Non-Smoker Alcohol: Denies ETOH Use Drugs: Denies Drug Use Lives In: Home Constitutional: denies: chills, diaphoresis, fatigue, fever, malaise, sweats, weakness, others EENTM: denies: blurred vision, double vision, ear bleeding, ear discharge, ear drainage, ear pain, ear ringing, eye pain, eye redness, hearing loss, mouth pain, mouth swelling, nasal discharge, nose bleeding, nose congestion, nose pain, photophobia, tearing, throat pain, throat swelling, voice changes, others Respiratory: denies: cough, hemoptysis, orthopnea, SOB at rest, shortness of breath, SOB with excertion, stridor, wheezing, others Cardiovascular: denies: chest pain, dizzy spells, diaphoresis, Dyspnea on exert ion, edema, irregular heart beat, left arm pain, lightheadedness, palpitations, PND, syncope, others Gastrointestinal: denies: abdomen distended, abdominal pain, blood streaked bowels, constipated, diarrhea, dysphagia, difficulty swallowing, hematemesis, melena, nausea, poor appetite, poor fluid intake, rectal bleeding, rectal pain, vomiting, others Genitourinary: reports: flank pain; denies: abnormal vagina bleeding, burning, dyspareunia, dysuria, frequency, hematuria, incontinence, pain, , vagina discharge, urgency, others Neurological: denies: dizziness, fainting, headache, left sided numbness, left sided weakness, numbness, paresthesia, pre-existing deficit, right sided numbness, right sided weakness, seizure, speech problems, tingling, tremors, weakness, others Musculoskeletal: reports: back pain; denies: gout, joint pain, joint swelling, muscle pain, muscle stiffness, neck pain, others Integumetry: denies: bruises, change in color, change in hair/nails, dryness, laceration, lesions, lumps, rash, wounds, others Allergic/Immunocompromised: denies: Difficulty Healing, Frequent Infections, Hives, Itching, others Hematologic/Lymphatic: denies: anemia, blood clots, easy bleeding, easy bruising, swollen glands, others Endocrine: denies: excessive hunger, excessive sweating, excessive thirst, excessive urination, flushing, intolerance to cold, intolerance to heat, unexplained weight gain, unexplained weight loss, others Psychiatric: denies: anxiety, bipolar disorder, depression, hopeless, panic disorder, schizophrenia, sleepless, suicidal, others All Other Systems: Reviewed and Negative Physical Exam General Appearance: Moderate Distress HEENT: Normal ENT Inspection, Pharynx Normal, TMs Normal Neck: Full Range of Motion, Non-Tender, Normal, Normal Inspection Respiratory: Chest Non-Tender, Lungs Clear, No Accessory Muscle Use, No Respiratory Distress, Normal Breath Sounds Cardiovascular: No Edema, No JVD, No Murmur, No Gallop, Normal Peripheral Pulses, Regular Rate/Rhythm Breast Exam: Deferred Gastrointestinal: No Organomegaly, Non Tender, No Pulsatile Mass, Normal Bowel Sounds, Soft Genitalia: Deferred Pelvic: Deferred Rectal: Deferred Extremities: No calf tenderness, Normal capillary refill, Normal inspection, Normal range of motion, Non-tender, No pedal edema Musculoskeletal : Apperance: Normal Neurologic: Alert, head of drama II-XII nml as Tested, No Motor Deficits, Normal Affect, Normal Mood, No Sensory Deficits Cerebellar Function: Normal Reflexes: Normal Skin: Dry, Normal Color, Warm Peripheral Pulses: 3+ Radial (R), 3+ Radial (L) Lymphatic: No Adenopathy Was a procedure done? Was a procedure done?: No Differential Diagnosis Kidney stone (Female): Hepatitis, Musculoskeletal pain, Pancreatitis, Pyelonephritis, Renal failure, Strain X-Ray, Labs, Meds, VS Vital Signs Date Time Temp Pulse Resp B/P (MAP) Pulse Ox O2 Delivery O2 Flow Rate FiO2 02/10/24 11:19 87 18 138/87 02/10/24 10:58 71 20 163/100 02/10/24 10:54 97.0 71 22 163/100 (121) 97 97.0 02/10/24 10:54 71 22 97 Room Air 02/10/24 09:00 97.0 87 20 148/87 (107) 100 02/10/24 09:00 97.0 87 20 149/87 (107) 100 97.0 Lab Test 02/10/24 10:20 02/10/24 09:32 Range/Units Urine Color Colorless Yellow Urine Clarity Turbid H Clear Urine pH 5.5 5.0-9.0 Urine Specific [place] 1.021 1.001-1.035 Urine Protein 1+ H Negative Urine Ketones Negative Negative Urine Blood Negative Negative /uL Urine Nitrite Negative Negative Urine Bilirubin Negative Negative Urine Urobilinogen Normal Negative mg/dL Urine Leukocyte Esterase 3+ Negative /uL Urine RBC 7 0 - 4 /hpf Urine WBC 53 0 - 5 /hpf Urine Squamous Epithelial Cells Mod <5 /hpf Urine Bacteria None seen None Seen /hpf Urine Hyaline Casts Few 0 - 2 /lpf Urine Mucus Few None Seen Urine Glucose Normal Normal mg/dL White Blood Count 2.5 L 4.4-10.8 10^3/uL Red Blood Count 4.35 4.0-5.20 10^6/uL Hemoglobin 8.6 L 12.2-16.2 g/dL Hematocrit 28.7 L 36.0-46.0 % Mean Corpuscular Volume 65.9 L 80.0-100.0 fL Mean Corpuscular Hemoglobin 19.8 L 28.0-32.0 pg Mean Corpuscular Hemoglobin Concent 30.1 L 32.0-36.0 g/dL Red Cell Distribution Width 16.4 H 11.8-14.3 % Platelet Count 250 140-450 10^3/uL Mean Platelet Volume 7.9 6.9-10.8 fL Neutrophils (%) (Auto) 57.1 37.0-80.0 % Lymphocytes (%) (Auto) 25.4 10.0-50.0 % Monocytes (%) (Auto) 12.2 H 0.0-12.0 % Eosinophils (%) (Auto) 2.0 0.0-7.0 % Basophils (%) (Auto) 3.3 H 0.0-2.0 % Neutrophils # (Auto) 1.4 L 1.6-8.6 10 ^3/uL Lymphocytes # (Auto) 0.6 0.4-5.4 10 ^3/uL Monocytes # (Auto) 0.3 0-1.3 10 ^3/uL Eosinophils # (Auto) 0.1 0-0.8 10 ^3/uL Basophils # (Auto) 0.1 0-0.2 10 ^3/uL Nucleated Red Blood Cells 0.1 % Platelet Estimate Adequate Hypochromasia (manual) Slight Anisocytosis (manual) Slight Microcytosis Slight Ovalocytes Few Sodium Level 140 136-145 mmol/L Potassium Level 4.3 3.5-5.1 mmol/L Chloride Level 112 H 98-107 mmol/L Carbon Dioxide Level 17 L 20-31 mmol/L Anion Gap 11 5-15 Blood Urea Nitrogen 19 9-23 mg/dL Creatinine 1.49 H 0.550-1.02 mg/dL Glomerular Filtration Rate Calc 45 >90 mL/min BUN/Creatinine Ratio 12.8 10.0-20.0 Serum Glucose 106 74-106 mg/dL Calcium Level 9.6 8.7-10.4 mg/dL Total Bilirubin 0.6 0.2-1.0 mg/dL Troponin I High Sensitivity 12 </=34 ng/L Plasma/Serum Blood Alcohol < 3.0 <10 mg/dL Current Medications Medications (Trade) Dose Ordered Sig/Arturo Route Start Time Stop Time Status Last Admin Ondansetron HCl (Zofran) 4 mg ONCE ONCE IV 02/10/24 09:30 02/10/24 09:31 DC 02/10/24 10:58 Morphine Sulfate 4 mg ONCE ONCE IV 02/10/24 10:45 02/10/24 10:46 DC 02/10/24 10:58 Patient alert. Complaining of back pain. Had lung transplant. Vitals stable. She is not taking any medication. Blood pressure normal limits. No variation blood pressure. Denies chest pain. Saturation pristine on room air. Continues to have back pain. Was given pain medication. Reviewed her history. Explained to the patient. Continue cardiac monitoring. Time of 1ST Reevaluation: 09:10 Reevaluation 1ST: Unchanged Patient Education/Counseling: Diagnosis, Treatment, Prognosis Family Education/Counseling: No Family Present Additional Information Ordered Test-PHA, LAB and EKG Reviewed Results- LAB including CBC, BMP, Troponin Discuss Tx/Results-medical personnel, pt Departure 1 Departure Time of Disposition: 09:22 Impression: Primary Impression: Chronic pain syndrome Additional Impressions: Sepsis due to urinary tract infection Anemia Qualified Codes: D64.9 - Anemia, unspecified Disposition: ADMITTED INPATIENT Admit to: Med Surg Condition: Guarded Critical Care Note Critical Care Time?: Yes (45 min-critical care time only) Stability Stability form required: No I personally scribed for PAVAN BEDOYA MD ([email or web address]) on 02/10/24 at 09:14. Electronically submitted by Hannah Caruso ([facility]). I personally scribed for PAVAN BEDOYA MD ([email or web address]) on 02/10/24 at 10:58. Electronically submitted by Hannah Caruso ([facility]). PAVAN BEDOYA MD Feb 10, 2024 09:14
[2024-02-10] MEDS: HYDROmorphone HCL 2 MG/ML VL/or syr IV ONE ×2 (09:30→13:51)
[2024-02-10 09:50] LABS: Mean Corpuscular Hemoglobin 19.8 pg (28.0-32.0)
[2024-02-10 09:54] LABS: Basophils # (auto) 0.1 10 ^3/uL (0-0.2); Basophils % (auto) 3.3 % (0.0-2.0); Eosinophils # (auto) 0.1 10 ^3/uL (0-0.8); Hematocrit 28.7 % (36.0-46.0); Hemoglobin 8.6 g/dL (12.2-16.2); Lymphocytes # (auto) 0.6 10 ^3/uL (0.4-5.4); Lymphocytes % (auto) 25.4 % (10.0-50.0); Mean Corpuscular Hgb Conc. 30.1 g/dL (32.0-36.0); Mean Corpuscular Volume 65.9 fL (80.0-100.0); Monocytes # (auto) 0.3 10 ^3/uL (0-1.3); Monocytes % (auto) 12.2 % (0.0-12.0); Neutrophils # (auto) 1.4 10 ^3/uL (1.6-8.6); Neutrophils % (auto) 57.1 % (37.0-80.0); Nucleated Red Blood Cells % 0.1 %; Platelet Count (auto) 250 10^3/uL (140-450); Red Blood Cells 4.35 10^6/uL (4.0-5.20); Red Cell Distribution Width 16.4 % (11.8-14.3); White Blood Cell 2.5 10^3/uL (4.4-10.8)
[2024-02-10 10:30] LABS: Potassium 4.3 mmol/L (3.5-5.1); Sodium 140 mmol/L (136-145)
[2024-02-10 10:31] LABS: Anion Gap 11 (5-15); Calcium 9.6 mg/dL (8.7-10.4)
[2024-02-10 10:36] LABS: BUN/Creatinine Ratio 12.8 (10.0-20.0); Blood Urea Nitrogen 19 mg/dL (9-23); Glucose 106 mg/dL (74-106)
[2024-02-10 10:38] LABS: Carbon Dioxide 17 mmol/L (20-31); Chloride 112 mmol/L (98-107)
[2024-02-10 10:45] LABS: Urine Bacteria None Seen /hpf (None Seen)
[2024-02-10 10:53] LABS: Urine Blood Negative /uL (Negative); Urine Clarity Turbid (Clear); Urine Color Colorless (Yellow); Urine Hyaline Cast FEW /lpf (0 - 2); Urine Mucus FEW (None Seen); Urine Protein, UAD 1+ (Negative); Urine Specific Gravity 1.021 (1.001-1.035); Urine Urobilinogen Normal (Negative); Urine WBC 53 /hpf (0 - 5); Urine pH 5.5 (5.0-9.0)
[2024-02-10] MEDS: MORPHINE SULFATE 4 MG/ML SYR/VIAL IV ONE (10:58)
[2024-02-10] MEDS: ONDANSETRON HCL 4 MG/2 ML VIAL IV ONE (10:58)
[2024-02-10 11:05] LABS: Anisocytosis Slight; Hypochromia Slight
[2024-02-10 11:06] LABS: Ovalocytes FEW; Platelet Estimate Adequate
[2024-02-10 11:26] LABS: Blood Alcohol < 3.0 mg/dL (<10)
[2024-02-10 11:27] LABS: Bilirubin, Total 0.6 mg/dL (0.2-1.0)
[2024-02-10] MEDS: cefTRIAXone 1GM/50ML D5W 50 ML IV ONE (12:08)
[2024-02-10] MEDS ORDERED: ONDANSETRON HCL 4 MG/2 ML VIAL IV PRN (14:00)
[2024-02-10] MEDS: SILDENAFIL CITRATE 20 MG TAB PO SCH (14:00)
[2024-02-10] MEDS ORDERED: MIDODRINE HCL 10 MG TAB PO SCH (14:00)
[2024-02-10] MEDS: IOHEXOL 300 MG/ML 100ML BOTTLE IJ ONE (14:03)
[2024-02-10] MEDS: SODIUM CHLORIDE 0.9% 1,000 ML IV ONE (14:04)
--- NOTE | 2024-02-10 14:32 | DVH ---
Exam: CT CT CHEST/AB/PL W CON- IV ONLY History: pancreas Comparison Study: None available at time of dictation. Technique: Multidetector spiral CT of the chest, abdomen and pelvis was performed from lower neck to pubic symphysis. 100 cc Omni 300 intravenous contrast was administered during this examination. Port al venous imaging was obtained. Axial, coronal and sagittal multiplanar reformats were performed by the technologist on a separate workstation. Radiation Dose : Chest/Abdomen/Pelvis: CTDIvol 8 mGy, DLP 632.08 mGy*cm. Findings: Lower neck: Normal thyroid. Lungs: No focal consolidation, pleural effusion or pneumothorax. Atelectasis and scarring in the lung bases. Heart/Vascular Structures: Normal heart size. No pericardial effusion. Lymph Nodes: No adenopathy Pleura: No pleural effusion or significant pneumothorax. Liver: The liver is normal in size. No focal lesions. Normal hepatic vascular enhancement. Gallbladder and biliary Tree: Gallbladder is surgically absent. Spleen: Unremarkable Pancreas: The pancreas is normal in appearance without focal lesions or abnormal enhancement. Adrenal Glands: Unremarkable Kidneys: Kidneys demonstrate normal symmetric enhancement without focal lesions, calculi or hydroneph rosis. Bladder: Unremarkable Bowel: The stomach is grossly normal in appearance. Small bowel and colon are normal in caliber and d istribution. Normal appendix is visualized in the right lower quadrant without findings of appendici tis. Ascites: Trace free fluid in the pelvis is likely physiologic. Lymphadenopathy: No mesenteric, retroperitoneal or periportal lymphadenopathy. Abdominal wall and Mesentery: Unremarkable. Vasculature: The visualized abdominal aorta is normal in size and caliber. Abdominal and pelvic vess els demonstrate normal enhancement. Pelvic Organs: Uterus is mildly enlarged. Musculoskeletal: No aggressive focal bony lesions, acute fractures or dislocation. IMPRESSION: 1. No acute findings involving the chest, abdomen or pelvis. Mild atelectasis and scarring in the mickey g bases. Uterus is prominent, possible fibroids. This can be further evaluated with ultrasound if cl inically indicated. HS:Y
[2024-02-10 15:03] LABS: Albumin 4.5 g/dL (3.2-4.8); Bilirubin, Direct 0.2 mg/dL (<0.3); Bilirubin, Total 0.6 mg/dL (0.2-1.0); Total Protein 6.7 g/dL (5.7-8.2)
[2024-02-10] MEDS: SODIUM CHLORIDE 0.9% 1,000 ML IV SCH (16:30)
[2024-02-10] MEDS ORDERED: MORPHINE SULFATE INJ 2 MG/ml SYRG IV PRN (16:30)
[2024-02-10] MEDS ORDERED: NITROGLYCERIN 0.4 MG SL TAB SL PRN (16:30)
[2024-02-10] MEDS: hydrALAZINE HCL 20 MG/ML VL IV SCH (18:00)
[2024-02-10] MEDS: MIDODRINE HCL 10 MG TAB PO SCH (18:00)
[2024-02-10] MEDS ORDERED: HYDROcodone-ACET 10/325MG TAB PO SCH (18:00)
[2024-02-10] MEDS: MORPHINE SULFATE INJ 2 MG/ml SYRG IV PRN (19:41)
[2024-02-10 21:00] VITALS: BP 134/69; PULSE 68; RESP 18; TEMP 97.9; O2SAT 100
[2024-02-10] MEDS: traZODone HCL 50 MG TAB PO SCH (21:52)
[2024-02-10] MEDS: methylPREDNISolone SOD SUCC 40 MG/ML VL IV ONE (21:52)
[2024-02-10] MEDS: FAMOTIDINE (10MG/ML) 2ML VL IV SCH (21:52)
[2024-02-10] MEDS ORDERED: LACTULOSE 20Gm/30ML SOLN PO SCH (22:00)
[2024-02-10] MEDS ORDERED: FAMOTIDINE 20 MG TAB PO SCH (22:00)
[2024-02-10] MEDS: ACETYLCYSTEINE ORAL for CIN 20%(200MG/ML) 4ML PO SCH (22:00)
[2024-02-11] VITALS (9 sets, daily range): BP systolic 132–165; BP diastolic 74–95; PULSE 65–103; RESP 16–20; TEMP 98.1–98.6; O2SAT 90–100
--- NOTE | 2024-02-11 00:55 | DVHHP2 ---
Admitting Diagnosis: UTI , Acute Kidney Injury, cough History of Present Illness History Source: Patient Exam Limitations: No limitations HPI Mrs. Love Schwartz is a 39 y.o female with a history of CHF and a lung transplant x 10/21/22, Patient presents with a chief complaint of chest pain radiating to right upper back that started 5 days ago. Patient describes the pain as sharp, constant and has no alleviating or precipitating factor. Patient reports a non productive cough. Patient denies any fevers, chills, nausea, vomiting, abdominal pain, diarrhea, constipation. Patient endorses a rash to her upper body that started at home and has worsened. Patient admitted for further evaluation and treatment. Home Meds Reported Medications Tacrolimus (ASTAGRAF XL) 5 Mg Cap, 5 MG PO DAILY@DINNER, CAP 02/11/24 Tacrolimus (ASTAGRAF XL) 5 Mg Cap, 6 MG PO DAILY@BREAKFAST, CAP 02/11/24 Mycophenolate Mofetil (Cellcept) 500 Mg Tab, 500 MG PO BID, TAB 02/11/24 Prednisone (PREDNISONE) 1 Mg Tb, 5 MG PO DAILY, TAB 02/11/24 Past Medical History Cardiac: CHF Pulmonary: No pertinent Hx Central Nervous System: No pertinent Hx GI: No pertinent Hx Hemotology/Oncology: No pertinent Hx Hepatobiliary: No pertinent Hx Psychiatric: No pertinent Hx Musculoskeletal: No pertinent Hx Rheumotologic: No pertinent Hx Infectious Disease: No peritnent Hx ENT: No pertinent Hx Renal/: No pertinent Hx Endocrine: No pertinent Hx Dermatology: No pertinent Hx Others lung transplant 2022 Patient Family History: Arthritis G8 MOTHER Asthma GRANDMOM Cardiovascular disease GRANDMOM Diabetes mellitus G8 FATHER GRANDMOM FHx: kidney disease G8 FATHER Smoker: No Hx (Negative) Alocohol: None Drugs: None Domestic Violence: Neg Review of Systems Constitutional: No symptom reported Ears, Nose, & Throat: No symptom reported Eyes: No symptom reported Pulmonary/Respiratory: Cough, Pleuritic Chest Pain Cardiovascular: No symptom reported Gastrointestinal: No symptom reported Genitourinary: No symptom reported Musculoskeletal: No symptom reported Skin: No symptom reported Psychiatric: No symptom reported Endocrine: No symptom reported Hemotologic/Lymphatic: No symptom reported All Other Systems rash H&P Exam Vital Signs Vital Signs Date Time Temp Pulse Resp B/P (MAP) Pulse Ox O2 Delivery O2 Flow Rate FiO2 02/11/24 00:27 91 22 149/95 02/10/24 21:00 97.9 100 97.9 02/10/24 18:47 Room Air* 0 21 General Appeara: Well developed, Well nourished Head Exam: Normal inspection Neck Exam: Normal inspection, Non-tender, Normal alignment Eye Exam: bilateral eye Normal inspection, bilateral eye PERRL, bilateral eye EOMI Ear Exam: bilateral ear Auricle normal Nasal Exam: Normal inspection Mouth: Normal Inspection Pulmonary/Respiratory: Normal inspection, Chest non-tender, Wheezing, Inspiration Cardiovascular/Chest: Normal inspection, Regular rate, Normal Rhythm Peripheral Pulses: 2+ dorsalis pedis (R), 2+ dorsalis pedis (L), 2+ Radial (R), 2+ Radial (L) Abdominal Exam: Normal bowel sounds, Soft, No tenderness 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 Exam: Normal hearing, Normal speech, PERRL Neuro/Mental St: Alert, Oriented Appearance: Appropriate appearance, Appropriate insight Eye contact/ Speech: Cooperative, Good eye contact, Normal speech Thoughts/Psych: Normal thought pattern Skin Exam: Warm/dry, Rash (upper body) Labs/Xrays Labs Test 02/10/24 10:20 02/10/24 09:32 Range/Units Urine Color Colorless Yellow Urine Clarity Turbid H Clear Urine pH 5.5 5.0-9.0 Urine Specific [place] 1.021 1.001-1.035 Urine Protein 1+ H Negative Urine Ketones Negative Negative Urine Blood Negative Negative /uL Urine Nitrite Negative Negative Urine Bilirubin Negative Negative Urine Urobilinogen Normal Negative mg/dL Urine Leukocyte Esterase 3+ Negative /uL Urine RBC 7 0 - 4 /hpf Urine WBC 53 0 - 5 /hpf Urine Squamous Epithelial Cells Mod <5 /hpf Urine Bacteria None seen None Seen /hpf Urine Hyaline Casts Few 0 - 2 /lpf Urine Mucus Few None Seen Urine Glucose Normal Normal mg/dL White Blood Count 2.5 L 4.4-10.8 10^3/uL Red Blood Count 4.35 4.0-5.20 10^6/uL Hemoglobin 8.6 L 12.2-16.2 g/dL Hematocrit 28.7 L 36.0-46.0 % Mean Corpuscular Volume 65.9 L 80.0-100.0 fL Mean Corpuscular Hemoglobin 19.8 L 28.0-32.0 pg Mean Corpuscular Hemoglobin Concent 30.1 L 32.0-36.0 g/dL Red Cell Distribution Width 16.4 H 11.8-14.3 % Platelet Count 250 140-450 10^3/uL Mean Platelet Volume 7.9 6.9-10.8 fL Neutrophils (%) (Auto) 57.1 37.0-80.0 % Lymphocytes (%) (Auto) 25.4 10.0-50.0 % Monocytes (%) (Auto) 12.2 H 0.0-12.0 % Eosinophils (%) (Auto) 2.0 0.0-7.0 % Basophils (%) (Auto) 3.3 H 0.0-2.0 % Neutrophils # (Auto) 1.4 L 1.6-8.6 10 ^3/uL Lymphocytes # (Auto) 0.6 0.4-5.4 10 ^3/uL Monocytes # (Auto) 0.3 0-1.3 10 ^3/uL Eosinophils # (Auto) 0.1 0-0.8 10 ^3/uL Basophils # (Auto) 0.1 0-0.2 10 ^3/uL Nucleated Red Blood Cells 0.1 % Platelet Estimate Adequate Hypochromasia (manual) Slight Anisocytosis (manual) Slight Microcytosis Slight Ovalocytes Few Sodium Level 140 136-145 mmol/L Potassium Level 4.3 3.5-5.1 mmol/L Chloride Level 112 H 98-107 mmol/L Carbon Dioxide Level 17 L 20-31 mmol/L Anion Gap 11 5-15 Blood Urea Nitrogen 19 9-23 mg/dL Creatinine 1.49 H 0.550-1.02 mg/dL Glomerular Filtration Rate Calc 45 >90 mL/min BUN/Creatinine Ratio 12.8 10.0-20.0 Serum Glucose 106 74-106 mg/dL Calcium Level 9.6 8.7-10.4 mg/dL Total Bilirubin 0.6 0.2-1.0 mg/dL Direct Bilirubin 0.2 <0.3 mg/dL Aspartate Amino Transferase (AST) 18 13-40 U/L Alanine Aminotransferase (ALT) 20 7-40 U/L Alkaline Phosphatase 57 46-116 U/L Troponin I High Sensitivity 12 </=34 ng/L Total Protein 6.7 5.7-8.2 g/dL Albumin 4.5 3.2-4.8 g/dL Lipase 35 12-53 U/L Plasma/Serum Blood Alcohol < 3.0 <10 mg/dL Assessment/Plan Problem List: (1) UTI (urinary tract infection) (2) CKD (chronic kidney disease) Plan 39 yo female with known history of CHF, lung transplant presents to the hospital with flank pain x 5 days. Patient found to have 1. Urinary tract infection 2. Acute kidney injury 3. Cough 4. acute rash Admit Med Surg -Nephrology consultation Monitor BMP IV antibiotic Ceftriaxone, Azithromycin Urine culture Benadryl as needed Pepcid IV IV steroids Duo Neb Treatments Discussed all above with patient who verbalizes agreement and understanding of care plan. All questions were answered. Discussed care plan with patient nurse Marva FITCH. Discussed assessment and care plan with supervising/admitting MD Dr. Heath. Plan discussed with: Patient, Other Code Visit Code Visit Total Time (mins): 45 Additional Comments Additional Comments Additional Comments Patient is seen evaluated and admitted by nurse practitioner relief operator. Patient is seen and evaluated by me this afternoon. I agree with the nurse practitioner's evaluation, documentation, assessment and care plan as outlined. Patient noted to have dermatomal distribution in the upper back and chest on the right side rash suggestive of shingles infection. We will start her on IV acyclovir then transitioned to oral acyclovir. Discussed with the patient and significant other at bedside. KAIN WHITING Feb 11, 2024 00:55 JOSSIE MAHARAJ MD Feb 11, 2024 15:35
[2024-02-11] MEDS: MORPHINE SULFATE 4 MG/ML SYR/VIAL IV PRN (01:23)
[2024-02-11] MEDS: diphenhdrAMINE HCL 50 MG/1 ML VL IV PRN (06:38)
[2024-02-11 07:21] LABS: Eosinophils # (auto) 0 10 ^3/uL (0-0.8); Hematocrit 26.8 % (36.0-46.0); Hemoglobin 8.1 g/dL (12.2-16.2); Monocytes # (auto) 0.1 10 ^3/uL (0-1.3)
[2024-02-11 07:26] LABS: Basophils # (auto) 0 10 ^3/uL (0-0.2); Basophils % (auto) 1.8 % (0.0-2.0); Eosinophils % (auto) 0.1 % (0.0-7.0); Lymphocytes # (auto) 0.3 10 ^3/uL (0.4-5.4); Lymphocytes % (auto) 13.2 % (10.0-50.0); Mean Corpuscular Hemoglobin 19.8 pg (28.0-32.0); Mean Corpuscular Hgb Conc. 30.2 g/dL (32.0-36.0); Mean Corpuscular Volume 65.8 fL (80.0-100.0); Monocytes % (auto) 2.7 % (0.0-12.0); Neutrophils % (auto) 82.2 % (37.0-80.0); Nucleated Red Blood Cells % 0.3 %; Platelet Count (auto) 221 10^3/uL (140-450); Red Blood Cells 4.07 10^6/uL (4.0-5.20); Red Cell Distribution Width 16.9 % (11.8-14.3); White Blood Cell 2.5 10^3/uL (4.4-10.8)
[2024-02-11 08:20] LABS: Alanine Aminotransferase 21 U/L (7-40); Albumin 4.1 g/dL (3.2-4.8); Alkaline Phosphatase 55 U/L (46-116); Anion Gap 4 (5-15); Aspartate Aminotransferase 24 U/L (13-40); Blood Urea Nitrogen 16 mg/dL (9-23); Calcium 8.9 mg/dL (8.7-10.4); Carbon Dioxide 21 mmol/L (20-31)
[2024-02-11 08:21] LABS: Chloride 110 mmol/L (98-107); Glucose 133 mg/dL (74-106); Sodium 135 mmol/L (136-145)
--- NOTE | 2024-02-11 08:22 | DVH ---
CHEST RADIOGRAPH Indication: cough, Technique: Single frontal view of the chest was obtained COMPARISON: CHEST PORTABLE on DOS: 12/24/20, CHEST PORTABLE on DOS: 09/29/20, CHEST PORTABLE on DOS: FINDINGS: Lines and Tubes: Median sternotomy Lungs: Pulmonary vascular congestion Pleura: No effusion. No pneumothorax. Cardiomediastinal contours: Cardiomegaly. Bones: Unremarkable IMPRESSION: Pulmonary vascular congestion.
[2024-02-11] MEDS: ACETAMINOPHEN 325 MG TAB PO PRN (08:43)
[2024-02-11 08:46] LABS: Bilirubin, Total 0.5 mg/dL (0.2-1.0)
[2024-02-11] MEDS: DexAMETHasone 4 MG TAB PO SCH (09:52)
[2024-02-11] MEDS: cefTRIAXone 1GM/50ML D5W 50 ML IV SCH (09:52)
--- NOTE | 2024-02-11 09:55 | DVHINCON2 ---
Date of service: Feb 11, 2024 Reason for Consultation Acute kidney injury History of Present Illness 39-year-old female past medical history of end-stage lung disease secondary to pulmonary hypertension status post lung transplant in 2022, CHF. She presents to the hospital complaining of several days of severe back pain diffuse and new onset rash. Nephrology consulted due to elevated creatinine level. She previously has no history of kidney dysfunction. She takes tacrolimus 7 mg in the morning and 6 mg in the evening, CellCept 500 b.i.d., prednisone five, Bactrim, azithromycin. She reports that Valcyte was stopped several months ago. She reports she was diffuse upper back rash and the pain that does not move anteriorly. Past Medical History Lung translant 2022 CHF pulm HTN Past Surgical History Cholecystectomy Lung transplant Allergies: Coded Allergies: NO KNOWN ALLERGIES (Unverified , 04/11/14) Home Meds Active Scripts Doxycycline (Monohydrate) (Doxycycline) 100 Mg Tab, 100 MG PO BID, #10 TAB Prov:JOSSIE MAHARAJ MD 12/27/20 Dexamethasone (Dexamethasone) 6 Mg Tab, 6 MG PO DAILY, #5 TAB Prov:JOSSIE MAHARAJ MD 12/27/20 Furosemide (Furosemide) 20 Mg Tab, 40 MG PO DAILY, #60 TAB Prov:MAHNAZ SNYDER MD 09/11/20 Midodrine HCl (Midodrine HCl) 10 Mg Tab, 5 MG PO Q8HR, #45 TAB Prov:MAHNAZ SNYDER MD 09/11/20 Reported Medications Spironolactone (Spironolactone) 25 Mg Tab, 1 TAB PO DAILY 12/26/20 Lactulose (Lactulose) 10 Gm/15 Ml G[place], 30 ML PO TID 12/26/20 Potassium Chloride (Potassium Chloride ER) 10 Meq Tab, 10 MEQ PO DAILY, TAB 12/26/20 Penicillin V Potassium (Veetids) 500 Mg Tab, 1 TAB PO QID for 7 Days, #28 TAB 12/26/20 Hydrocodone-Acetaminophen (Hydrocodone Bitartrate/AC 10-325 mg) 1 Tab Tab, 1 TAB PO Q6HPRN for PAIN, TAB 12/26/20 Trazodone Hcl (Trazodone Hcl) 50 Mg Tab, 50 MG PO HS, MG 09/07/20 Ambrisentan (Letairis) 10 Mg Tab, 10 MG PO DAILY 01/10/20 Sildenafil Citrate (Revatio) 20 Mg Tab, 20 MG PO TID, TAB 12/22/19 Current Medications Current Medications Medications (Trade) Dose Ordered Sig/Arturo Route PRN Reason Start Time Stop Time Status Last Admin Acetaminophen/ Hydrocodone Bitart (Riddle 10/325MG Tab) 1 tab Q6HPRN PO 02/10/24 18:00 Hold Midodrine (Proamatine Tablet) 5 mg Q8HR PO 02/10/24 14:00 02/10/24 15:40 DC Sildenafil Citrate (Revatio) 20 mg TID PO 02/10/24 14:00 Spironolactone (Aldactone) 25 mg DAILY PO 02/11/24 10:00 02/10/24 16:22 DC Trazodone HCl (Desyrel) 50 mg HS PO 02/10/24 22:00 02/10/24 21:52 Patient Own Medication 10 mg DAILY PO 02/11/24 10:00 Dexamethasone (Decadron Tablet) 6 mg DAILY PO 02/11/24 10:00 02/11/24 09:52 Lactulose 30 ml TID PO 02/10/24 22:00 Hold Ondansetron HCl (Zofran) 4 mg Q4HPRN PRN IV NAUSEA / VOMITING 02/10/24 14:00 Morphine Sulfate 3 mg Q3HPRN PRN IV SEVERE PAIN (7-10 PAIN SCALE) 02/10/24 14:00 02/11/24 09:54 Morphine Sulfate 2 mg Q4HPRN PRN IV MODERATE PAIN (4-6 PAIN SCALE) 02/10/24 14:00 02/11/24 05:52 Acetaminophen (Tylenol Tablet) 650 mg Q4HP PRN PO PAIN SCALE 1-3 OR TEMP>100.4 02/10/24 14:00 02/11/24 08:43 Famotidine (Pepcid Tablet) 20 mg Q12HR PO 02/10/24 22:00 02/10/24 21:20 DC Hydralazine HCl (Apresoline Injection) 10 mg Q6HR IV 02/10/24 18:00 02/11/24 00:22 Ceftriaxone Sodium 50 ml @ 100 mls/hr DAILY@09 IV 02/11/24 09:00 02/11/24 09:52 Midodrine (Proamatine Tablet) 5 mg TID@0600,1200,1800 PO 02/10/24 18:00 Sodium Chloride 1,000 ml @ 125 mls/hr Q8H IV 02/10/24 16:30 02/10/24 16:30 Acetylcysteine (Mucomyst Po Soln (For Brenna)) 1,200 mg BID PO 02/10/24 22:00 02/12/24 21:59 02/10/24 22:00 Nitroglycerin (Ntrostat Sublingual) 0.4 mg Q5MINP PRN SL FOR CHEST PAIN 02/10/24 16:30 Hold Morphine Sulfate 2 mg Q30M PRN IV FOR CHEST PAIN 02/10/24 16:30 Diphenhydramine HCl (Benadryl Injection) 25 mg Q8HR PRN IV FOR ITCHING 02/10/24 21:00 02/11/24 06:38 Famotidine (Pepcid Injection) 20 mg Q12HR IV 02/10/24 22:00 02/11/24 09:52 Ipratropium [place] (Atrovent Medneb) 0.5 mg Q4HR NEB 02/11/24 10:00 Azithromycin 250 ml @ 125 mls/hr DAILY IV 02/11/24 10:00 Family History: Arthritis G8 MOTHER Asthma GRANDMOM Cardiovascular disease GRANDMOM Diabetes mellitus G8 FATHER GRANDMOM FHx: kidney disease G8 FATHER Review of Systems Severe back pain and rash H&P Exam Vital Signs/I&O Vital Sign Date Time Temp Pulse Resp B/P (MAP) Pulse Ox O2 Delivery O2 Flow Rate FiO2 02/11/24 09:54 77 22 165/81 02/11/24 09:00 98.1 99 98.1 02/10/24 20:00 Room Air* 0 21 Intake and Output 02/10/24 02/11/24 19:00 07:00 Intake Total 1650 ml Balance 1650 ml Intake Oral 650 ml IV Total 1000 ml # Voids 2 Physical Exam Middle-aged female in moderate distress complaining of pain No murmur Breathing appears to be normal Upper back right-sided rash appears over low specific dermatomal no scabbing noted yet No edema No JVD Labs/Diagnostic Data Labs/Diagnostic Data Laboratory Tests Test 02/11/24 06:21 02/10/24 10:20 02/10/24 09:32 Range/Units White Blood Count 2.5 L 2.5 L 4.4-10.8 10^3/uL Red Blood Count 4.07 4.35 4.0-5.20 10^6/uL Hemoglobin 8.1 L 8.6 L 12.2-16.2 g/dL Hematocrit 26.8 L 28.7 L 36.0-46.0 % Mean Corpuscular Volume 65.8 L 65.9 L 80.0-100.0 fL Mean Corpuscular Hemoglobin 19.8 L 19.8 L 28.0-32.0 pg Mean Corpuscular Hemoglobin Concent 30.2 L 30.1 L 32.0-36.0 g/dL Red Cell Distribution Width 16.9 H 16.4 H 11.8-14.3 % Platelet Count 221 250 140-450 10^3/uL Mean Platelet Volume 8.2 7.9 6.9-10.8 fL Neutrophils (%) (Auto) 82.2 H 57.1 37.0-80.0 % Lymphocytes (%) (Auto) 13.2 25.4 10.0-50.0 % Monocytes (%) (Auto) 2.7 12.2 H 0.0-12.0 % Eosinophils (%) (Auto) 0.1 2.0 0.0-7.0 % Basophils (%) (Auto) 1.8 3.3 H 0.0-2.0 % Neutrophils # (Auto) 2.0 1.4 L 1.6-8.6 10 ^3/uL Lymphocytes # (Auto) 0.3 L 0.6 0.4-5.4 10 ^3/uL Monocytes # (Auto) 0.1 0.3 0-1.3 10 ^3/uL Eosinophils # (Auto) 0 0.1 0-0.8 10 ^3/uL Basophils # (Auto) 0 0.1 0-0.2 10 ^3/uL Nucleated Red Blood Cells 0.3 0.1 % Sodium Level 135 #L 140 136-145 mmol/L Potassium Level 5.0 4.3 3.5-5.1 mmol/L Chloride Level 110 H 112 H 98-107 mmol/L Carbon Dioxide Level 21 17 L 20-31 mmol/L Anion Gap 4 L 11 5-15 Blood Urea Nitrogen 16 19 9-23 mg/dL Creatinine 1.07 H 1.49 H 0.550-1.02 mg/dL Glomerular Filtration Rate Calc 67 45 >90 mL/min BUN/Creatinine Ratio 15.0 12.8 10.0-20.0 Serum Glucose 133 H 106 74-106 mg/dL Calcium Level 8.9 9.6 8.7-10.4 mg/dL Total Bilirubin 0.5 0.6 0.2-1.0 mg/dL Aspartate Amino Transferase (AST) 24 18 13-40 U/L Alanine Aminotransferase (ALT) 21 20 7-40 U/L Alkaline Phosphatase 55 57 46-116 U/L Total Protein 6.0 6.7 5.7-8.2 g/dL Albumin 4.1 4.5 3.2-4.8 g/dL Urine Color Colorless Yellow Urine Clarity Turbid H Clear Urine pH 5.5 5.0-9.0 Urine Specific [place] 1.021 1.001-1.035 Urine Protein 1+ H Negative Urine Ketones Negative Negative Urine Blood Negative Negative /uL Urine Nitrite Negative Negative Urine Bilirubin Negative Negative Urine Urobilinogen Normal Negative mg/dL Urine Leukocyte Esterase 3+ Negative /uL Urine RBC 7 0 - 4 /hpf Urine WBC 53 0 - 5 /hpf Urine Squamous Epithelial Cells Mod <5 /hpf Urine Bacteria None seen None Seen /hpf Urine Hyaline Casts Few 0 - 2 /lpf Urine Mucus Few None Seen Urine Glucose Normal Normal mg/dL Platelet Estimate Adequate Hypochromasia (manual) Slight Anisocytosis (manual) Slight Microcytosis Slight Ovalocytes Few Direct Bilirubin 0.2 <0.3 mg/dL Troponin I High Sensitivity 12 </=34 ng/L Lipase 35 12-53 U/L Plasma/Serum Blood Alcohol < 3.0 <10 mg/dL Assessment Acute kidney injury hemodynamically mediated No history of chronic kidney disease Lung transplant on immunosuppression Pulmonary hypertension Severe back pain and rash appears to be localized to one specific dermatome li scott shingles we will need evaluation Recommend resuming patient's immunosuppression medication Evaluation for shingles and treatment Patient will need contact precautions for this IV fluid gentle hydration Rest of care as per primary medical team Plan discussed with: Patient KAYKAY MORALES MD Feb 11, 2024 09:55
[2024-02-11] MEDS ORDERED: SPIRONOLACTONE 25 MG TAB PO SCH (10:00)
[2024-02-11] MEDS ORDERED: PRE1T PO (10:17)
[2024-02-11] MEDS ORDERED: MYCO500T PO (10:17)
[2024-02-11] MEDS ORDERED: TACR5CAP15 PO ×2 (10:19)
[2024-02-11] MEDS: IPRATROPIUM BROM 0.5 MG/2.5ML INH SOL NEB SCH (10:30)
[2024-02-11] MEDS: AZITHROMYCIN 500MG/ 250ML 250 ML IV SCH (11:50)
[2024-02-11] MEDS ORDERED: ACYCLOVIR 5MG/KG Q8HR PER RX 0 ML IV SCH (14:00)
[2024-02-11 14:04] LABS: Rapid Influenza A Negative (Negative); Rapid Influenza B Negative (Negative)
[2024-02-11] MEDS ORDERED: ACYCLOVIR 10MG/KG Q8HR PER RX 0 ML IV SCH ×2 (15:15)
[2024-02-11] MEDS: SODIUM CHL 0.9% IV SCH (17:02)
[2024-02-11] MEDS: ACYCLOVIR SOD IV SCH (17:02)
[2024-02-11] MEDS: SODIUM CHL 0.9% 250 ML IV SCH (17:07)
[2024-02-11] MEDS: GABAPENTIN 300 MG CAP PO SCH (20:03)
[2024-02-11] MEDS: MYCOPHENOLATE 500 MG TAB PO SCH (22:00)
[2024-02-11] MEDS: TACROLIMUS 1 MG CAP PO SCH (22:00)
[2024-02-12 01:00] VITALS: BP 140/78; PULSE 96; RESP 18; TEMP 98.6; O2SAT 93
[2024-02-12 05:00] VITALS: BP 115/70; PULSE 112; RESP 18; TEMP 98.4; O2SAT 95
[2024-02-12] MEDS: ACYCLOVIR 400 MG TAB PO SCH (05:26)
[2024-02-12 06:11] LABS: Anion Gap 10 (5-15); Carbon Dioxide 20 mmol/L (20-31); Potassium 3.8 mmol/L (3.5-5.1); Sodium 137 mmol/L (136-145)
[2024-02-12 06:17] LABS: Blood Urea Nitrogen 14 mg/dL (9-23); Calcium 8.6 mg/dL (8.7-10.4); Chloride 107 mmol/L (98-107); Glucose 99 mg/dL (74-106)
[2024-02-12 07:31] VITALS: PULSE 112; RESP 18; O2SAT 95
[2024-02-12] MEDS: predniSONE 5 MG TAB PO SCH (08:57)
[2024-02-12 09:00] VITALS: BP 146/88; PULSE 82; RESP 20; TEMP 97.9; O2SAT 98
[2024-02-12] MEDS ORDERED: GABA-1250 PO (12:42)
[2024-02-12] MEDS ORDERED: ACYC400T16 PO (12:42)
[2024-02-12] MEDS ORDERED: HYDR-4902 PO (12:42)
[2024-02-12] MEDS ORDERED: LIDO4CRE EX (12:42)
--- NOTE | 2024-02-12 12:45 | DVHDS2 ---
Discharge Summary Date of Admission Feb 10, 2024 at 16:21 Date of Discharge: Feb 12, 2024 Admitting Diagnosis Upper back pain/discomfort Labs/Diagnostic Data: Laboratory Results Test 02/12/24 04:45 02/11/24 12:20 02/11/24 06:21 02/10/24 10:20 Sodium Level 137 mmol/L (136-145) Potassium Level 3.8 mmol/L (3.5-5.1) Chloride Level 107 mmol/L (98-107) Carbon Dioxide Level 20 mmol/L (20-31) Anion Gap 10 (5-15) Blood Urea Nitrogen 14 mg/dL (9-23) Creatinine 1.08 mg/dL (0.550-1.02) Glomerular Filtration Rate Calc 66 mL/min (>90) BUN/Creatinine Ratio 13.0 (10.0-20.0) Serum Glucose 99 mg/dL (74-106) Calcium Level 8.6 mg/dL (8.7-10.4) Influenza Type A Antigen Negative (Negative) Influenza Type B Antigen Negative (Negative) White Blood Count 2.5 10^3/uL (4.4-10.8) Red Blood Count 4.07 10^6/uL (4.0-5.20) Hemoglobin 8.1 g/dL (12.2-16.2) Hematocrit 26.8 % (36.0-46.0) Mean Corpuscular Volume 65.8 fL (80.0-100.0) Mean Corpuscular Hemoglobin 19.8 pg (28.0-32.0) Mean Corpuscular Hemoglobin Concent 30.2 g/dL (32.0-36.0) Red Cell Distribution Width 16.9 % (11.8-14.3) Platelet Count 221 10^3/uL (140-450) Mean Platelet Volume 8.2 fL (6.9-10.8) Neutrophils (%) (Auto) 82.2 % (37.0-80.0) Lymphocytes (%) (Auto) 13.2 % (10.0-50.0) Monocytes (%) (Auto) 2.7 % (0.0-12.0) Eosinophils (%) (Auto) 0.1 % (0.0-7.0) Basophils (%) (Auto) 1.8 % (0.0-2.0) Neutrophils # (Auto) 2.0 10 ^3/uL (1.6-8.6) Lymphocytes # (Auto) 0.3 10 ^3/uL (0.4-5.4) Monocytes # (Auto) 0.1 10 ^3/uL (0-1.3) Eosinophils # (Auto) 0 10 ^3/uL (0-0.8) Basophils # (Auto) 0 10 ^3/uL (0-0.2) Nucleated Red Blood Cells 0.3 % Total Bilirubin 0.5 mg/dL (0.2-1.0) Aspartate Amino Transferase (AST) 24 U/L (13-40) Alanine Aminotransferase (ALT) 21 U/L (7-40) Alkaline Phosphatase 55 U/L (46-116) Total Protein 6.0 g/dL (5.7-8.2) Albumin 4.1 g/dL (3.2-4.8) Urine Color Colorless (Yellow) Urine Clarity Turbid (Clear) Urine pH 5.5 (5.0-9.0) Urine Specific [place] 1.021 (1.001-1.035) Urine Protein 1+ (Negative) Urine Ketones Negative (Negative) Urine Blood Negative /uL (Negative) Urine Nitrite Negative (Negative) Urine Bilirubin Negative (Negative) Urine Urobilinogen Normal mg/dL (Negative) Urine Leukocyte Esterase 3+ /uL (Negative) Urine RBC 7 /hpf (0 - 4) Urine WBC 53 /hpf (0 - 5) Urine Squamous Epithelial Cells Mod /hpf (<5) Urine Bacteria None seen /hpf (None Seen) Urine Hyaline Casts Few /lpf (0 - 2) Urine Mucus Few (None Seen) Urine Glucose Normal mg/dL (Normal) Test 02/10/24 09:32 Platelet Estimate Adequate Hypochromasia (manual) Slight Anisocytosis (manual) Slight Microcytosis Slight Ovalocytes Few Direct Bilirubin 0.2 mg/dL (<0.3) Troponin I High Sensitivity 12 ng/L (</=34) Lipase 35 U/L (12-53) Plasma/Serum Blood Alcohol < 3.0 mg/dL (<10) Other Laboratory Tests 02/12/24 04:45 02/11/24 06:21 Brief Hx & Hospital Course: Mrs. Love Schwartz is a 39 y.o female with a history of CHF and a lung transplant x 10/21/22, Patient presents with a chief complaint of chest pain radiating to right upper back that started 5 days ago. Patient describes the pain as sharp, constant and has no alleviating or precipitating factor. Patient reports a non productive cough. Patient denies any fevers, chills, nausea, vomiting, abdominal pain, diarrhea, constipation. Patient endorses a rash to her upper body that started at home and has worsened. Patient admitted for further evaluation and treatment. He is admitted and noted to have a shingles infection with a dermatomal distribution and B upper back felt causing her symptoms. Patient is also noted to be in acute kidney injury therefore she was evaluated by break out man. Patient received IV hydration and kidney function has improved. Per her shingles she was started on acyclovir initially IV doses and switch to oral dosage. Patient remained afebrile. Patient resumed on her immunosuppressive treatment she was taking at home for her history of lung transplant. Patient otherwise clinically stable. Vital signs are stable. She was feeling better except for pain. Therefore she was prescribed pain medication including dose of narcotic showed her extra staff will as pain cream. Patient is told about contact isolation at home and to avoid any physical contact till her shingles improved. She was advised to follow up with her primary care physician and further manage her shingles as deemed appropriate. I have talked with the patient regarding the precautions and her hospital diagnosis, treatment she received, hospital course. She has verbalized understanding of this and given she was feeling better requesting to go home. Condition at Discharge: Stable Final Diagnosis/Problems List Shingles upper back Discharge Disposition: Home Discharge Instruct/Medications Diet: Consistent carbohydrate, Cardiac 2g Na,low cholest Activity: No Restrictions, As Tolerated Follow Up/Referral: Primary care physician next week follow up shingles infection and further management Medications: Take medications as prescribed and home medications as you were taking New Medications: Acyclovir (Zovirax Tablet) 400 Mg Tb 2 TAB PO 5XD, #70 TAB Gabapentin (Gabapentin) 300 Mg Cap 2 CAP PO TIDP PRN, #30 CAP Hydrocodone-Acetaminophen (Hydrocodone Bitartrate/AC 5-325 mg) 1 Tab Tab 1 TAB PO Q6HPRN PRN, #10 TAB Lidocaine HCl (Aspercreme/Lidocaine) 4 % Cre 4 % EX TIDP PRN, #1 CRE TO APPLY TO AFFECTED/PAINFUL AREA ON YOUR UPPER BACK AND CHEST NEEDED Continued Medications: Mycophenolate Mofetil (Cellcept) 500 Mg Tab 500 MG PO BID, TAB Prednisone (Prednisone) 1 Mg Tb 5 MG PO DAILY, TAB Tacrolimus (Astagraf Xl) 5 Mg Cap 7 MG PO DAILY@BREAKFAST, CAP Tacrolimus (Astagraf Xl) 5 Mg Cap 6 MG PO DAILY@DINNER, CAP Discharge Statement: "Patient was advised to return to the ER or call 911 if any headaches, dizziness, shortness of breath, chest pain, abdominal pain, bleeding, fevers, or worsening of medical condition. Patient was counseled about treatment plan, medications, possible side effects, patientverbalized understanding. All questions were answered to the best of my ability. This discharge took greater then 30 minutes in planning, reviewing documentation, counseling the patient, and discussing with other team members." ASSESSMENT ASSESSMENT Assessment Shingles upper back JOSSIE MAHARAJ MD Feb 12, 2024 12:45
[2024-02-12 13:00] VITALS: BP 154/94; PULSE 93; RESP 20; TEMP 98.3; O2SAT 97
== END 2024-02-12 15:15 | disposition home or self-care (01) | DRG 683 ==
LOC: ER 08:53 → OVERFLOW 16:21 → WEST WING 18:30 → EAST 02-11 17:25
PROVIDERS: ADMIT Hospitalist; ATTEND Hospitalist
DX: N17.0 Acute kidney failure with tubular necrosis (principal); N30.00 Acute cystitis without hematuria; Z94.2 Lung transplant status; D64.9 Anemia, unspecified; G89.4 Chronic pain syndrome; B02.9 Zoster without complications; I27.20 Pulmonary hypertension, unspecified; I50.9 Heart failure, unspecified; Z83.3 Family history of diabetes mellitus; Z82.5 Family history of asthma and other chronic lower respiratory diseases; Z82.49 Family history of ischemic heart disease and other diseases of the circulatory system; Z79.60 Long term (current) use of unspecified immunomodulators and immunosuppressants; Z90.49 Acquired absence of other specified parts of digestive tract
CPT/HCPCS: 36415; 71045; 71260; 74177; 80048; 80053; 80076; 80320; 81001; 82247; 83690; 84484; 85025; 87804; 96361; 96365; 96375; 99291; G0378; J2405; J3490; J7507; J7517

== ENCOUNTER 2024-07-22 15:11 | Emergency (ER) | payer BC ==
[~2024-07-22] VITALS: Ht 162.6 cm; Wt 79.6 kg
[~2024-07-22 15:11] MED LIST changes: +ACYC400T16 PO; -AMBR1TAB PO; -DEXA6TAB PO; -DOXY-346 PO; -FURO20TA4 PO; +GABA-1250 PO; -HYDR-4798 PO; +HYDR-4902 PO; -LACT10SO3 PO; +LIDO4CRE EX; -MID10T PO; +MYCO500T PO; -PENI500T2 PO; -POTA-228 PO; +PRE1T PO; -SILD20TA PO; -SPIR25TA8 PO; +TACR5CAP15 PO; -TRAZ-227 PO
--- NOTE | 2024-07-22 15:32 | ED.PDOC ---
History of Present Illness HPI Comments 39-year-old female came to the ER stating that she has a hemoglobin level of 6.9 for which her primary care physician had recommended blood transfusion. She gets treated at [facility]. She does have heavy menstrual cycles. Her blood work was drawn last week for which shows 6.9. She does take of ferrous sulfate for her chronic anemia. Denies any other symptoms. Chief Complaint: Abnormal LAB's Time Seen by MD: 15:19 Primary Care Provider: BRANDON Reviewed Notes: Nurses Notes, Medications, Allergies Allergies: Coded Allergies: NO KNOWN ALLERGIES (Unverified , 04/11/14) Home Meds Active Scripts Hydrocodone-Acetaminophen (Hydrocodone Bitartrate/AC 5-325 mg) 1 Tab Tab, 1 TAB PO Q6HPRN PRN, #10 TAB Prov:JOSSIE MAHARAJ MD 02/12/24 Lidocaine HCl (Aspercreme/Lidocaine) 4 % Cre, 4 % EX TIDP PRN, #1 CRE TO APPLY TO AFFECTED/PAINFUL AREA ON YOUR UPPER BACK AND CHEST NEEDED Prov:JOSSIE MAHARAJ MD 02/12/24 Gabapentin (Gabapentin) 300 Mg Cap, 2 CAP PO TIDP PRN, #30 CAP Prov:JOSSIE MAHARAJ MD 02/12/24 Acyclovir (ZOVIRAX TABLET) 400 Mg Tb, 2 TAB PO 5XD, #70 TAB Prov:JOSSIE MAHARAJ MD 02/12/24 Reported Medications Tacrolimus (ASTAGRAF XL) 5 Mg Cap, 6 MG PO DAILY@DINNER, CAP 02/11/24 Tacrolimus (ASTAGRAF XL) 5 Mg Cap, 7 MG PO DAILY@BREAKFAST, CAP 02/11/24 Mycophenolate Mofetil (Cellcept) 500 Mg Tab, 500 MG PO BID, TAB 02/11/24 Prednisone (PREDNISONE) 1 Mg Tb, 5 MG PO DAILY, TAB 02/11/24 Information Source: Patient Mode of Arrival: Ambulatory Severity: Moderate Timing: Days Duration: Since onset Past Medical History PAST MEDICAL HISTORY: CHF Surgical History: Cholecystectomy, Tubal Ligation 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 History Family History Family History: Family hx of DM Social History Smoker: Non-Smoker Alcohol: Denies ETOH Use Drugs: Denies Drug Use Lives In: Home Constitutional: denies: chills, diaphoresis, fatigue, fever, malaise, sweats, weakness, others EENTM: denies: blurred vision, double vision, ear bleeding, ear discharge, ear drainage, ear pain, ear ringing, eye pain, eye redness, hearing loss, mouth pain, mouth swelling, nasal discharge, nose bleeding, nose congestion, nose pain, photophobia, tearing, throat pain, throat swelling, voice changes, others Respiratory: denies: cough, hemoptysis, orthopnea, SOB at rest, shortness of breath, SOB with excertion, stridor, wheezing, others Cardiovascular: denies: chest pain, dizzy spells, diaphoresis, Dyspnea on exertion, edema, irregular heart beat, left arm pain, lightheadedness, palpitations, PND, syncope, others Gastrointestinal: denies: abdomen distended, abdominal pain, blood streaked bowels, constipated, diarrhea, dysphagia, difficulty swallowing, hematemesis, melena, nausea, poor appetite, poor fluid intake, rectal bleeding, rectal pain, vomiting, others Genitourinary: denies: abnormal vagina bleeding, burning, dyspareunia, dysuria, flank pain, frequency, hematuria, incontinence, pain, , vagina discharge, urgency, others Neurological: denies: dizziness, fainting, headache, left sided numbness, left sided weakness, numbness, paresthesia, pre-existing deficit, right sided numbness, right sided weakness, seizure, speech problems, tingling, tremors, weakness, others Musculoskeletal: denies: back pain, gout, joint pain, joint swelling, muscle pain, muscle stiffness, neck pain, others Integumetry: denies: bruises, change in color, change in hair/nails, dryness, laceration, lesions, lumps, rash, wounds, others Allergic/Immunocompromised: denies: Difficulty Healing, Frequent Infections, Hives, Itching, others Hematologic/Lymphatic: denies: anemia, blood clots, easy bleeding, easy bruising, swollen glands, others Endocrine: denies: excessive hunger, excessive sweating, excessive thirst, excessive urination, flushing, intolerance to cold, intolerance to heat, unexplained weight gain, unexplained weight loss, others Psychiatric: denies: anxiety, bipolar disorder, depression, hopeless, panic disorder, schizophrenia, sleepless, suicidal, others Physical Exam General Appearance: Moderate Distress HEENT: Normal ENT Inspection, Pharynx Normal, TMs Normal Neck: Full Range of Motion, Non-Tender, Normal, Normal Inspection Respiratory: Chest Non-Tender, Lungs Clear, No Accessory Muscle Use, No Respiratory Distress, Normal Breath Sounds Cardiovascular: No Edema, No JVD, No Murmur, No Gallop, Normal Peripheral Pulses, Regular Rate/Rhythm Breast Exam: Deferred Gastrointestinal: No Organomegaly, Non Tender, No Pulsatile Mass, Normal Bowel Sounds, Soft Genitalia: Deferred Pelvic: Deferred Rectal: Deferred Extremities: No calf tenderness, Normal capillary refill, Normal inspection, Normal range of motion, Non-tender, No pedal edema Musculoskeletal : Apperance: Normal Neurologic: Alert, dry cleaning attendant II-XII nml as Tested, No Motor Deficits, Normal Affect, Normal Mood, No Sensory Deficits Cerebellar Function: Normal Reflexes: Normal Skin: Dry, Normal Color, Warm Peripheral Pulses: 3+ Radial (R), 3+ Radial (L) Lymphatic: No Adenopathy Was a procedure done? Was a procedure done?: No Differential Dx Considerations may include: Anemia Electrolyte imbalance X-Ray, Labs, Meds, VS Vital Signs Date Time Temp Pulse Resp B/P (MAP) Pulse Ox O2 Delivery O2 Flow Rate FiO2 07/22/24 15:23 97.3 75 16 141/85 (103) 99 97.3 07/22/24 15:22 16 99 Room Air* 0 21 Lab Test 07/22/24 15:35 Range/Units White Blood Count 3.7 L 4.4-10.8 10^3/uL Red Blood Count 3.61 L 4.0-5.20 10^6/uL Hemoglobin 6.8 *L 12.2-16.2 g/dL Hematocrit 23.1 L 36.0-46.0 % Mean Corpuscular Volume 64.1 L 80.0-100.0 fL Mean Corpuscular Hemoglobin 18.9 L 28.0-32.0 pg Mean Corpuscular Hemoglobin Concent 29.4 L 32.0-36.0 g/dL Red Cell Distribution Width 19.2 H 11.8-14.3 % Platelet Count 298 140-450 10^3/uL Mean Platelet Volume 7.8 6.9-10.8 fL Neutrophils (%) (Auto) 60.1 37.0-80.0 % Lymphocytes (%) (Auto) 14.3 10.0-50.0 % Monocytes (%) (Auto) 14.7 H 0.0-12.0 % Eosinophils (%) (Auto) 0.3 0.0-7.0 % Basophils (%) (Auto) 10.6 H 0.0-2.0 % Neutrophils # (Auto) 2.2 1.6-8.6 10 ^3/uL Lymphocytes # (Auto) 0.5 0.4-5.4 10 ^3/uL Monocytes # (Auto) 0.5 0-1.3 10 ^3/uL Eosinophils # (Auto) 0 0-0.8 10 ^3/uL Basophils # (Auto) 0.4 H 0-0.2 10 ^3/uL Nucleated Red Blood Cells 0.2 % Patient alert. Vitals stable. States that her hemoglobin is on the low side. Answering questions. Ambulating. Heart rate within normal limits. Saturation pristine on room air. Reviewed her history. Continue monitoring. Hemoglobin is low. She will need blood transfusion. Spoke with choice physician. His physician had cleared the patient to be discharged after the blood transfusion. Physical examination pristine. She does have pink cheeks pain Possibly mild anemia. Explained to the patient her results. Will be signed out to night physician for which she will be discharged after the blood transfusion. Time of 1ST Reevaluation: 15:34 Reevaluation 1ST: Improved Patient Education/Counseling: Diagnosis, Treatment, Prognosis, Need For Follow Up Family Education/Counseling: No Family Present Departure 1 Departure Time of Disposition: 15:35 Impression: Primary Impression: Anemia Qualified Codes: D64.9 - Anemia, unspecified Disposition: 30 STILL A PATIENT Admit to: Med Surg Condition: Guarded Critical Care Note Critical Care Time?: No Stability Stability form required: No Heart Score Heart Score: Heart Score Response (Comments) Value History N/A 0 EKG N/A 0 Age N/A 0 Risk Factors N/A 0 Troponin N/A 0 Total 0 PAVAN BEDOYA MD July 22, 2024 15:32
[2024-07-22 15:44] LABS: Eosinophils # (auto) 0 10 ^3/uL (0-0.8); Lymphocytes # (auto) 0.5 10 ^3/uL (0.4-5.4); White Blood Cell 3.7 10^3/uL (4.4-10.8)
[2024-07-22 15:45] LABS: Basophils # (auto) 0.4 10 ^3/uL (0-0.2); Basophils % (auto) 10.6 % (0.0-2.0); Eosinophils % (auto) 0.3 % (0.0-7.0); Hematocrit 23.1 % (36.0-46.0); Lymphocytes % (auto) 14.3 % (10.0-50.0); Mean Corpuscular Hemoglobin 18.9 pg (28.0-32.0); Mean Corpuscular Hgb Conc. 29.4 g/dL (32.0-36.0); Mean Corpuscular Volume 64.1 fL (80.0-100.0); Monocytes # (auto) 0.5 10 ^3/uL (0-1.3); Monocytes % (auto) 14.7 % (0.0-12.0); Neutrophils # (auto) 2.2 10 ^3/uL (1.6-8.6); Neutrophils % (auto) 60.1 % (37.0-80.0); Nucleated Red Blood Cells % 0.2 %; Platelet Count (auto) 298 10^3/uL (140-450); Red Blood Cells 3.61 10^6/uL (4.0-5.20); Red Cell Distribution Width 19.2 % (11.8-14.3)
[2024-07-22 16:04] LABS: Hemoglobin 6.8 g/dL (12.2-16.2)
--- NOTE | 2024-07-22 16:59 | DVHINCON2 ---
Date Seen: July 22, 2024 Referring Physician ER physician. Reason for Consultation Patient was sent by PCP with a hemoglobin less than seven. 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 Patient had lab draw by the PCP which shows hemoglobin of 6.7 eventually patient was sent to ER. I was called for admission. But patient can be having blood transfusion and can be discharged from ER as per patient's request. 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 Patient does have known history of heavy menses. Patient stated that it comes regularly but it is very heavy for one week. Currently she does not have any menstrual bleed. Patient was recommended to have blood transfusion and follow up as an ou tpatient with the Gynecology. Past Medical History Menorrhagia History of lung transplant. Past Surgical History Status post lung transplant for pulmonary arterial hypertension. Family History: Arthritis G8 MOTHER Asthma GRANDMOM Cardiovascular disease GRANDMOM Diabetes mellitus G8 FATHER GRANDMOM FHx: kidney disease G8 FATHER Allergies: Coded Allergies: NO KNOWN ALLERGIES (Unverified , 04/11/14) Home Meds Active Scripts Hydrocodone-Acetaminophen (Hydrocodone Bitartrate/AC 5-325 mg) 1 Tab Tab, 1 TAB PO Q6HPRN PRN, #10 TAB Prov:JOSSIE MAHRAAJ MD 02/12/24 Lidocaine HCl (Aspercreme/Lidocaine) 4 % Cre, 4 % EX TIDP PRN, #1 CRE TO APPLY TO AFFECTED/PAINFUL AREA ON YOUR UPPER BACK AND CHEST NEEDED Prov:JOSSIE MAHARAJ MD 02/12/24 Gabapentin (Gabapentin) 300 Mg Cap, 2 CAP PO TIDP PRN, #30 CAP Prov:JOSSIE MAHARAJ MD 02/12/24 Acyclovir (ZOVIRAX TABLET) 400 Mg Tb, 2 TAB PO 5XD, #70 TAB Prov:JOSSIE MAHARAJ MD 02/12/24 Reported Medications Tacrolimus (ASTAGRAF XL) 5 Mg Cap, 6 MG PO DAILY@DINNER, CAP 02/11/24 Tacrolimus (ASTAGRAF XL) 5 Mg Cap, 7 MG PO DAILY@BREAKFAST, CAP 02/11/24 Mycophenolate Mofetil (Cellcept) 500 Mg Tab, 500 MG PO BID, TAB 02/11/24 Prednisone (PREDNISONE) 1 Mg Tb, 5 MG PO DAILY, TAB 02/11/24 Review of Systems Twelve review of system were negative except mentioned above. 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 Labs/Diagnostic Data Labs Test 07/22/24 15:35 Range/Units White Blood Count 3.7 L 4.4-10.8 10^3/uL Red Blood Count 3.61 L 4.0-5.20 10^6/uL Hemoglobin 6.8 *L 12.2-16.2 g/dL Hematocrit 23.1 L 36.0-46.0 % Mean Corpuscular Volume 64.1 L 80.0-100.0 fL Mean Corpuscular Hemoglobin 18.9 L 28.0-32.0 pg Mean Corpuscular Hemoglobin Concent 29.4 L 32.0-36.0 g/dL Red Cell Distribution Width 19.2 H 11.8-14.3 % Platelet Count 298 140-450 10^3/uL Mean Platelet Volume 7.8 6.9-10.8 fL Neutrophils (%) (Auto) 60.1 37.0-80.0 % Lymphocytes (%) (Auto) 14.3 10.0-50.0 % Monocytes (%) (Auto) 14.7 H 0.0-12.0 % Eosinophils (%) (Auto) 0.3 0.0-7.0 % Basophils (%) (Auto) 10.6 H 0.0-2.0 % Neutrophils # (Auto) 2.2 1.6-8.6 10 ^3/uL Lymphocytes # (Auto) 0.5 0.4-5.4 10 ^3/uL Monocytes # (Auto) 0.5 0-1.3 10 ^3/uL Eosinophils # (Auto) 0 0-0.8 10 ^3/uL Basophils # (Auto) 0.4 H 0-0.2 10 ^3/uL Nucleated Red Blood Cells 0.2 % Assessment 39-year-old female was sent to ER by PCP with abnormal labs. 1. Acute on chronic anemia status post 1 unit of packed RBC 2. Menorrhagia, outpatient follow up with the gynecology 3. Status post lung transplant currently on immunomodulators -transfuse 1 unit of packed RBC, outpatient follow up with the PCP has been as gynecology for menorrhagia. Patient is currently understand verbalized understanding and agreeable to plan. Plan discussed with: Patient Date of Service: July 22, 2024 Billing Provider: MONICA BHARDWAJ MD Common Visit Codes: NOT BILLABLE MONICA BHARDWAJ MD July 22, 2024 16:59
[2024-07-22 18:49] VITALS: PULSE 65; RESP 15; O2SAT 99
[2024-07-22 19:41] VITALS: BP 117/93; PULSE 69; RESP 19
[2024-07-22 19:43] VITALS: BP 117/93; PULSE 68; RESP 19; TEMP 98.5
[2024-07-22 20:05] VITALS: BP 124/85; PULSE 83; RESP 17; TEMP 98.5
[2024-07-22 21:00] VITALS: BP 130/69; PULSE 69; RESP 17; TEMP 98.5
[2024-07-22 22:07] VITALS: BP 147/78; PULSE 78; RESP 13; TEMP 98.4; O2SAT 100
== END 2024-07-22 22:30 | disposition home or self-care (01) ==
LOC: ER 15:11
DX: D64.9 Anemia, unspecified (principal); I50.9 Heart failure, unspecified; Z90.49 Acquired absence of other specified parts of digestive tract; Z98.890 Other specified postprocedural states; Z79.52 Long term (current) use of systemic steroids; Z79.621 Long term (current) use of calcineurin inhibitor; Z79.624 Long term (current) use of inhibitors of nucleotide synthesis; Z79.899 Other long term (current) drug therapy
CPT/HCPCS: 36415; 36430; 85025; 86850; 86900; 86901; 86920; 99285; P9016

== ENCOUNTER 2024-10-18 00:31 | Emergency (ER) | payer BC ==
[~2024-10-18] VITALS: Ht 162.6 cm; Wt 76.0 kg
--- NOTE | 2024-10-18 00:51 | ED.PDOC ---
History of Present Illness HPI Comments 39 year old female presents to the ED with a chief complaint of headache onset 3 days. She has been experiencing RT sided headache for the past 3 days as well as nausea/vomiting. Currently rates pain 12/08. Patient called transplant center, was not called back with results. PMHx CHF, lung transplant. Denies dizziness, lightheadedness, blurred vision, chest pain, shortness of breath, numbness/tingling, abdominal pain. No other symptoms or modifying factors present at this time. Chief Complaint: Headache Time Seen by MD: 00:45 Primary Care Provider: BRANDON Reviewed Notes: Medications, Allergies Allergies: Coded Allergies: NO KNOWN ALLERGIES (Unverified , 04/11/14) Home Meds Active Scripts Ondansetron HCl (Ondansetron Hydrochloride) 8 Mg Tab, 8 MG PO Q6HP PRN, #30 TAB Prov:MARYSOL BONNER MD 10/18/24 Gabapentin (Once-Daily) (Gabapentin) 300 Mg Tab, 300 MG PO Q6HP PRN, #30 TAB Prov:MARYSOL BONNER MD 10/18/24 Hydrocodone-Acetaminophen (Hydrocodone Bitartrate/AC 5-325 mg) 1 Tab Tab, 1 TAB PO Q6HPRN PRN, #10 TAB Prov:JOSSIE MAHARAJ MD 02/12/24 Lidocaine HCl (Aspercreme/Lidocaine) 4 % Cre, 4 % EX TIDP PRN, #1 CRE TO APPLY TO AFFECTED/PAINFUL AREA ON YOUR UPPER BACK AND CHEST NEEDED Prov:JOSSIE MAHARAJ MD 02/12/24 Gabapentin (Gabapentin) 300 Mg Cap, 2 CAP PO TIDP PRN, #30 CAP Prov:JOSSIE MAHARAJ MD 02/12/24 Acyclovir (ZOVIRAX TABLET) 400 Mg Tb, 2 TAB PO 5XD, #70 TAB Prov:JOSSIE MAHARAJ MD 02/12/24 Reported Medications Tacrolimus (ASTAGRAF XL) 5 Mg Cap, 6 MG PO DAILY@DINNER, CAP 02/11/24 Tacrolimus (ASTAGRAF XL) 5 Mg Cap, 7 MG PO DAILY@BREAKFAST, CAP 02/11/24 Mycophenolate Mofetil (Cellcept) 500 Mg Tab, 500 MG PO BID, TAB 02/11/24 Prednisone (PREDNISONE) 1 Mg Tb, 5 MG PO DAILY, TAB 02/11/24 Information Source: Patient Mode of Arrival: Ambulatory Severity: Moderate Timing: Days Duration: Since onset Prehospital treatment: None Past Medical History PAST MEDICAL HISTORY: CHF Surgical History: Cholecystectomy, Tubal Ligation Surgical History (Other): lung transplant 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 Family History Family History: Family hx of DM Social History Smoker: Non-Smoker Alcohol: Denies ETOH Use Drugs: Denies Drug Use Lives In: Home Constitutional: denies: chills, diaphoresis, fatigue, fever, malaise, sweats, weakness, others EENTM: denies: blurred vision, double vision, ear bleeding, ear discharge, ear drainage, ear pain, ear ringing, eye pain, eye redness, hearing loss, mouth pain, mouth swelling, nasal discharge, nose bleeding, nose congestion, nose pain, photophobia, tearing, throat pain, throat swelling, voice changes, others Respiratory: denies: cough, hemoptysis, orthopnea, SOB at rest, shortness of breath, SOB with excertion, stridor, wheezing, others Cardiovascular: denies: chest pain, dizzy spells, diaphoresis, Dyspnea on exertion, edema, irregular heart beat, left arm pain, lightheadedness, palpitations, PND, syncope, others Gastrointestinal: reports: nausea, vomiting; denies: abdomen distended, abdominal pain, blood streaked bowels, constipated, diarrhea, dysphagia, difficulty swallowing, hematemesis, melena, poor appetite, poor fluid intake, rectal bleeding, rectal pain, others Genitourinary: denies: abnormal vagina bleeding, burning, dyspareunia, dysuria, flank pain, frequency, hematuria, incontinence, pain, , vagina discharge, urgency, others Neurological: reports: headache; denies: dizziness, fainting, left sided numbness, left sided weakness, numbness, paresthesia, pre-existing deficit, right sided numbness, right sided weakness, seizure, speech problems, tingling, tremors, weakness, others Musculoskeletal: denies: back pain, gout, joint pain, joint swelling, muscle pain, muscle stiffness, neck pain, others Integumetry: denies: bruises, change in color, change in hair/nails, dryness, laceration, lesions, lumps, rash, wounds, others Allergic/Immunocompromised: denies: Difficulty Healing, Frequent Infections, Hives, Itching, others Hematologic/Lymphatic: denies: anemia, blood clots, easy bleeding, easy bruising, swollen glands, others Endocrine: denies: excessive hunger, excessive sweating, excessive thirst, excessive urination, flushing, intolerance to cold, intolerance to heat, unexplained weight gain, unexplained weight loss, others Psychiatric: denies: anxiety, bipolar disorder, depression, hopeless, panic disorder, schizophrenia, sleepless, suicidal, others All Other Systems: Reviewed and Negative Physical Exam General Appearance: Normal HEENT: Normal ENT Inspection, Pharynx Normal, TMs Normal Neck: Full Range of Motion, Non-Tender, Normal, Normal Inspection Respiratory: Chest Non-Tender, Lungs Clear, No Accessory Muscle Use, No Respiratory Distress, Normal Breath Sounds Cardiovascular: No Edema, No JVD, No Murmur, No Gallop, Normal Peripheral Pulses, Regular Rate/Rhythm Breast Exam: Deferred Gastrointestinal: No Organomegaly, Non Tender, No Pulsatile Mass, Normal Bowel Sounds, Soft Genitalia: Deferred Pelvic: Deferred Rectal: Deferred Extremities: No calf tenderness, Normal capillary refill, Normal inspection, Normal range of motion, Non-tender, No pedal edema Musculoskeletal : Apperance: Normal Neurologic: Alert, personal finance instructor II-XII nml as Tested, No Motor Deficits, Normal Affect, Normal Mood, No Sensory Deficits Cerebellar Function: Normal Reflexes: Normal Skin: Dry, Normal Color, Warm Lymphatic: No Adenopathy Was a procedure done? Was a procedure done?: No Differential Dx Considerations may include: Differential diagnosis includes but not limited to meningitis, migraine, cluster headache, dehydration, sepsis and others X-Ray, Labs, Meds, VS Vital Signs Date Time Temp Pulse Resp B/P (MAP) Pulse Ox O2 Delivery O2 Flow Rate FiO2 10/18/24 02:47 97.6 81 16 160/99 (119) 98 97.6 10/18/24 00:33 97.4 80 20 144/99 98 97.4 Lab Test 10/18/24 01:07 Range/Units White Blood Count 4.3 L 4.4-10.8 10^3/uL Red Blood Count 4.57 4.0-5.20 10^6/uL Hemoglobin 11.8 L 12.2-16.2 g/dL Hematocrit 35.7 L 36.0-46.0 % Mean Corpuscular Volume 78.1 L 80.0-100.0 fL Mean Corpuscular Hemoglobin 25.9 L 28.0-32.0 pg Mean Corpuscular Hemoglobin Concent 33.2 32.0-36.0 g/dL Red Cell Distribution Width 25.8 H 11.8-14.3 % Platelet Count 232 140-450 10^3/uL Mean Platelet Volume 8.4 6.9-10.8 fL Neutrophils (%) (Auto) 79.8 37.0-80.0 % Lymphocytes (%) (Auto) 15.1 10.0-50.0 % Monocytes (%) (Auto) 3.3 0.0-12.0 % Eosinophils (%) (Auto) 1.1 0.0-7.0 % Basophils (%) (Auto) 0.7 0.0-2.0 % Neutrophils # (Auto) 3.4 1.6-8.6 10 ^3/uL Lymphocytes # (Auto) 0.6 0.4-5.4 10 ^3/uL Monocytes # (Auto) 0.1 0-1.3 10 ^3/uL Eosinophils # (Auto) 0 0-0.8 10 ^3/uL Basophils # (Auto) 0 0-0.2 10 ^3/uL Nucleated Red Blood Cells 0.3 % Sodium Level 142 136-145 mmol/L Potassium Level 4.2 3.5-5.1 mmol/L Chloride Level 110 H 98-107 mmol/L Carbon Dioxide Level 21 20-31 mmol/L Anion Gap 11 5-15 Blood Urea Nitrogen 24 H 9-23 mg/dL Creatinine 1.48 H 0.550-1.02 mg/dL Glomerular Filtration Rate Calc 45 >90 mL/min BUN/Creatinine Ratio 16.2 10.0-20.0 Serum Glucose 96 74-106 mg/dL Calcium Level 8.9 8.7-10.4 mg/dL Current Medications Medications (Trade) Dose Ordered Sig/Arturo Route Start Time Stop Time Status Last Admin Acetaminophen/ Hydrocodone Bitart ([place] 10/325MG Tab) 1 tab ONCE ONCE PO 10/18/24 02:15 10/18/24 02:16 DC 10/18/24 02:55 Ondansetron HCl (Zofran Po) 8 mg ONCE ONCE PO 10/18/24 02:15 10/18/24 02:16 DC 10/18/24 02:54 Time of 1ST Reevaluation: 01:15 Reevaluation 1ST: Unchanged Patient Education/Counseling: Diagnosis, Treatment, Prognosis Family Education/Counseling: No Family Present Additional Information The following tests were ordered, and results were reviewed by me: CBC, BMP, CT HEAD WO CONTRAST I reviewed and agreed with the following test results read by other providers: CT HEAD WO CONTRAST I discussed treatment and results with medical personnel and: patient Comprehensive systems review obtained and negative except for what is stated in the HPI. SEPSIS Sepsis Screen Date sepsis recognized/suspect: Oct 18, 2024 Time Sepsis recognized/suspect: 003 Recent Procedure: No On Antibiotic Therapy: No Respiratory Rate >20: No Heart Rate >90: No Temp<36 C (96.8 F) or >38.3 C: No SBP <90 or MAP <65 mmHG: No New Acute Mental Status Change: No Is the patient on CPAP, BIPAP,: No Physician Orders Head Without Contrast (10/18/24 00:49) Vital Signs Date Time Temp Pulse Resp B/P (MAP) Pulse Ox O2 Delivery O2 Flow Rate FiO2 10/18/24 02:47 97.6 81 16 160/99 (119) 98 97.6 10/18/24 00:33 97.4 80 20 144/99 98 97.4 Laboratory Tests Test 10/18/24 01:07 White Blood Count 4.3 10^3/uL (4.4-10.8) L Medications Medications Dose Ordered Sig/Arturo Route Start Time Stop Time Status Last Admin Dose Admin Acetaminophen/ Hydrocodone Bitart 1 tab ONCE ONCE PO 10/18/24 02:15 10/18/24 02:16 DC 10/18/24 02:55 Ondansetron HCl 8 mg ONCE ONCE PO 10/18/24 02:15 10/18/24 02:16 DC 10/18/24 02:54 Departure 1 Departure Time of Disposition: 03:00 Impression: Primary Impression: Headache Additional Impression: Renal insufficiency Disposition: 01 HOME / SELF CARE / HOMELESS Condition: Stable e-Prescriptions Ondansetron HCl (Ondansetron Hydrochloride) 8 Mg Tab 8 MG PO Q6HP PRN, #30 TAB Prov: MARYSOL BONNER MD 8/20/25 Gabapentin (Once-Daily) (Gabapentin) 300 Mg Tab 300 MG PO Q6HP PRN, #30 TAB Prov: MARYSOL BONNER MD 10/18/24 Discharged With: Self Critical Care Note Critical Care Time?: No Stability Stability form required: No I personally scribed for MARYSOL BONNER MD ([email or web address]) on 10/18/24 at 00:51. Electronically submitted by Jennifer Jacobson ([email or web address]). I personally scribed for MARYSOL BONNER MD ([email or web address]) on 10/18/24 at 00:51. Electronically submitted by Jennifer Jacobson ([email or web address]). MARYSOL BONNER MD Oct 18, 2024 00:51
[2024-10-18 01:26] LABS: Hemoglobin 11.8 g/dL (12.2-16.2); Mean Corpuscular Hemoglobin 25.9 pg (28.0-32.0)
[2024-10-18 01:28] LABS: Hematocrit 35.7 % (36.0-46.0); Mean Corpuscular Volume 78.1 fL (80.0-100.0); Nucleated Red Blood Cells % 0.3 %
[2024-10-18 01:32] LABS: Potassium 4.2 mmol/L (3.5-5.1); Sodium 142 mmol/L (136-145)
[2024-10-18 01:33] LABS: Anion Gap 11 (5-15); Calcium 8.9 mg/dL (8.7-10.4); Carbon Dioxide 21 mmol/L (20-31)
[2024-10-18 01:34] LABS: Chloride 110 mmol/L (98-107)
[2024-10-18 01:38] LABS: BUN/Creatinine Ratio 16.2 (10.0-20.0); Blood Urea Nitrogen 24 mg/dL (9-23); Glucose 96 mg/dL (74-106)
--- NOTE | 2024-10-18 01:43 | DVH ---
EXAM: CT HEAD WITHOUT CONTRAST INDICATION: headache TECHNIQUE: CT of the head without intravenous contrast. Radiation Dose : 1. Head: CT Dose: CTDI volume is 64.87 mGy. Dose-length product is 909.91 mGy*cm The dose indicators for CT are the volume Computed Tomography (CT) Dose Index (CTDIvol) and the Dose Length Product (DLP), and are measured in units of mGy and mGy-cm, respectively. These indicators are not patient dose, but values generated from the CT scanner acquisition factors. The report includes radiation exposure data for exposures received during this examination. COMPARISON: None FINDINGS: Motion artifact degrades fine detail. The cerebral parenchyma appears to be normal configuration and attenuation. The ventricles, cisterns , and sulci appear age-appropriate. There is no evidence for acute territorial infarct, hemorrhage, or mass effect. The orbits are normal. The visualized paranasal sinuses and mastoid air cells are clear. The soft t issues and osseous structures appear within normal limits. IMPRESSION: 1. No acute territorial infarct, intracranial hemorrhage, or mass effect. 2. If clinical symptoms persist, MRI may be beneficial in further evaluation. Radiation optimization: All CT scans at this facility use at least one of these dose optimization andres hniques: automated exposure control mA and/or kV adjustment per patient size (includes targeted exam s where dose is matched to clinical indication) or iterative reconstruction.
[2024-10-18] MEDS ORDERED: GABA300T4 PO (02:10)
[2024-10-18] MEDS ORDERED: ONDA-180 PO (02:10)
[2024-10-18 02:47] VITALS: BP 160/99; PULSE 81; RESP 16; TEMP 97.6; O2SAT 98
[2024-10-18] MEDS: ONDANSETRON ODT 4 MG TAB PO ONE (02:54)
[2024-10-18] MEDS: HYDROcodone-ACET 10/325MG TAB PO ONE (02:55)
== END 2024-10-18 02:57 | disposition home or self-care (01) ==
LOC: ER 00:36
DX: N28.9 Disorder of kidney and ureter, unspecified (principal); R51.9 Headache, unspecified; I50.9 Heart failure, unspecified; Z98.51 Tubal ligation status; Z90.49 Acquired absence of other specified parts of digestive tract
CPT/HCPCS: 36415; 70450; 80048; 85025; 99284; Q0162